=== PATIENT | female | born 1995 | race Caucasian/White ===

== ENCOUNTER 2023-01-03 21:28 | Emergency (ER) | payer BC, SELFPAY ==
[2023-01-03 21:41] VITALS: BP 125/68; PULSE 83; RESP 16; TEMP 37; O2SAT 98; BMI 38.0
--- NOTE | 2023-01-03 21:43 | XR_ITS ---
PROCEDURE INFORMATION: Exam: XR Chest Exam date and time: 01/03/2023 10:11 PM Age: 27 years old Clinical indication: Pain; Chest pressure; Additional info: Chest pain, cough TECHNIQUE: Imaging protocol: Radiologic exam of the chest. Views: 2 views. COMPARISON: No relevant prior studies available. FINDINGS: Lungs: Unremarkable. No consolidation. Pleural spaces: Unremarkable. No pleural effusion. No pneumothorax. Heart/Mediastinum: Unremarkable. No cardiomegaly. Bones/joints: Unremarkable. IMPRESSION: No acute findings.
--- NOTE | 2023-01-03 21:46 | HMH.EDGENADL ---
Discharge Plan Disposition Patient Disposition: Home, Self-Care Condition: Good Prescriptions Prescriptions: New methocarbamol 750 mg tablet 750 mg PO Q8H PRN (Reason: pain) Qty: 20 0RF Referrals Follow up/Referrals: Pat Owens MD [Primary Care Provider] - See instructions Activity Restrictions/Add. Instructions Additional Instructions/Restrictions: You were evaluated in the emergency department today. Please take Tylenol and ibuprofen at home as needed for pain. Follow-up with your primary care provider over the next 3 days. Return to the emergency department for any new or worsening symptoms. Clinical Impressions Clinical Impression: Bronchitis, Costochondritis Chest pain Qualifiers: Chest pain type: unspecified Qualified Code(s): R07.9 - Chest pain, unspecified Instructions Patient Instructions: DI for Acute Bronchitis, DI for Atypical Chest Pain, DI for Costochondritis Discharge ED Provider: Catalina Alas General Adult HPI General Chief complaint: Shortness of Breath/Dyspnea Stated complaint: SOA, painful breathing in chest and back Time Seen by Provider: 01/03/23 21:33 History of Present Illness HPI narrative: This patient is a 27-year-old female who has a history of obesity status post gastric sleeve presenting to the emergency department for evaluation with concern for chest pain. She reports that on 12/18 she was coming back from vacation and developed upper respiratory symptoms, including cough. She is evaluated her PCPs office on 12/24 for symptoms, as they were persistent. They prescribed her a Z-Ruslan, and she completed this. Afterwards, she notes no improvement. She states that she is still feeling unwell and has chest tightness. She describes an intermittent substernal chest pain that radiates to between her shoulder blades. It comes and goes. She denies any recent fevers or increasing cough. She denies any abdominal pain, low back pain, nausea, vomiting, or other concerns. Related Data Previous Rx's Medication Instructions Recorded methocarbamol 750 mg tablet 750 mg PO Q8H PRN pain #20 tabs 01/03/23 Allergies Allergy/AdvReac Type Severity Reaction Status Date / Time No Known Allergies Allergy Verified 01/03/23 21:55 [facility] Disclaimer: The information contained in this section may have been updated after the patient was seen, as this information can be updated by other users. Social History Smoking Status: Current every day smoker alcohol intake: never current occupational status: employed Travel in the last 8 weeks: None ROS Obtained: Yes All systems reviewed & no additional complaints except as documented 14 point review of systems obtained and negative except as mentioned in HPI. Physical Exam General General appearance: alert and in no apparent distress Head Head exam: atraumatic and normocephalic Eye Eye exam: Present normal appearance, PERRL and EOMI ENT ENT exam: Present normal exam, normal oropharynx and mucous membranes moist Neck Neck exam: Present normal inspection, full ROM and trachea midline; Absent tenderness Chest Chest inspection: Present normal inspection and symmetric chest wall rise; Absent tenderness Respiratory Respiratory exam: Present normal lung sounds bilaterally; Absent respiratory distress, wheezes or stridor Cardiovascular Cardiovascular exam: Present regular rate and normal rhythm Abdominal Exam Abdominal exam: Present soft; Absent distention, tenderness or guarding Extremities Exam Extremities exam: Present normal inspection, full ROM and normal capillary refill; Absent tenderness or edema Back Exam Back exam: Present normal inspection and full ROM; Absent tenderness Neurological Exam Neurological exam: Present alert, oriented X3, CN II-XII intact and normal gait; Absent motor sensory deficit Psychiatric Psychiatric exam: Present normal affect and normal mood Sk
--- NOTE | 2023-01-03 21:47 | ECG_ITS ---
APPROVED REPORT Exam: Resting ECG HR:73 bpm ECG Measurements Heart Rate 73 AXES VA 174 P 52 QRSd 130 QRS 81 QT 381 T 9 QTc 406 Conclusion SINUS RHYTHM RIGHT BUNDLE BRANCH BLOCK [120+ ms QRS DURATION, UPRIGHT V1, 40+ ms S IN I/aVL/V4/V5/V6] ABNORMAL ECG UNCONFIRMED REPORT Electronically signed by : Marlo Douglass MD 01/04/2023 20:30:16
[2023-01-03 22:04] LABS: Basophils % 0.4 % (0.1-2.0); Eosinophils # 0.1 K/mm3 (0.0-0.4); Eosinophils % 1.6 % (0.1-12.0); Hematocrit 44.9 % (37.0-47.0); Hemoglobin 14.4 g/dL (12.2-16.2); Lymphocytes % 33.8 % (10-50); Mean Corpuscular HGB Conc 32.1 g/dL (31.8-35.4); Mean Corpuscular Hemoglobin 29.4 pg (27.0-31.2); Mean Corpuscular Volume 91.4 fl (81-99); Mean Platelet Volume 8.3 fl (7.4-10.4); Monocytes # 0.3 K/mm3 (0.1-1.0); Monocytes % 5.7 % (1.7-9.3); Neutrophils # 3.4 K/mm3 (1.8-7.8); Neutrophils % 58.4 % (37.0-80.0); Platelet Count 253 K/mm3 (142-424); Red Blood Count 4.91 M/mm3 (4.20-5.40); Red Cell Distribution Width 12.7 % (11.5-17.5); White Blood Count 5.8 K/mm3 (4.8-10.8)
[2023-01-03 22:12] LABS: Chloride 105 mmol/L (98-107); Potassium 3.9 mmoL/L (3.5-5.1); Sodium 139 mmol/L (136-145)
[2023-01-03 22:14] LABS: HCG Qualitative, Serum Negative (Negative)
[2023-01-03 22:15] LABS: Alanine Aminotransferase 26 U/L (12-78); Albumin Level 3.7 g/dl (3.5-5.0); Albumin/Globulin Ratio 1.1 (1.1-1.8); Alkaline Phosphatase 72 U/L (38-126); Anion Gap 10.9 mEq/L (5-15); Aspartate Amino Transferase 27 U/L (14-36); Bilirubin,Total 0.3 mg/dl (0.2-1.3); Blood Urea Nitrogen 12 mg/dl (7-17); Carbon Dioxide 27 mmol/L (22.0-30.0); Creatinine Clearance Estimated 183 mL/min (50-200); Estimated Glomerular Filt Rate 99 ml/min (>60); GFR (African American) 120 ML/MIN (>60); Globulin 3.3 g/dL (1.3-3.2)
[2023-01-03 22:16] LABS: Calcium 8.5 mg/dl (8.4-10.2); Glucose 83 mg/dl (74-100)
[2023-01-03 22:28] LABS: Troponin I < 0.01 ng/ml (0.00-0.034)
[2023-01-03 23:01] VITALS: BP 119/65; PULSE 76; RESP 18; TEMP 36.6
== END 2023-01-03 23:05 | disposition home or self-care (01) ==
PROVIDERS: Emergency Provider Emergency Medicine; PCP Family Medicine
DX: R07.9 Chest pain, unspecified (principal); J40 Bronchitis, not specified as acute or chronic; M94.0 Chondrocostal junction syndrome [Tietze]; R06.02 Shortness of breath; I45.19 Other right bundle-branch block; F17.200 Nicotine dependence, unspecified, uncomplicated
CPT/HCPCS: 71046; 80053; 84484; 84703; 85025; 93005; 93041; 96361; 96374; 99285

== ENCOUNTER 2023-07-26 02:17 | Emergency (ER) | payer BC, SELFPAY ==
--- NOTE | 2023-07-26 02:26 | HMH.EDGENADL ---
Discharge Plan Disposition Patient Disposition: Home, Self-Care Prescriptions Prescriptions: No Action methocarbamol 750 mg tablet 750 mg PO Q8H PRN (Reason: pain) Qty: 20 0RF Referrals Follow up/Referrals: Provider,Referral, [Primary Care Provider] - See instructions Activity Restrictions/Add. Instructions Additional Instructions/Restrictions: Please follow-up with your primary care provider. Please return to the emergency department if you develop any new or worsening symptoms or become concerned for your health. Clinical Impressions Clinical Impression: Abdominal pain, acute, left lower quadrant Instructions Patient Instructions: DI for Acute Abdominal Pain Discharge ED Provider: Damaso Manzo General Adult HPI General Chief complaint: Abdominal Pain Stated complaint: pain in right side of abdomen Time Seen by Provider: 07/26/23 02:25 History of Present Illness HPI narrative: 28-year-old female presents with severe sudden onset left pelvic pain. She reports that she has history of ovarian cysts and endometriosis, but this feels significantly worse and different from normal. She reports normal bowel movement earlier today, no history of constipation. She reports history of section, cholecystectomy. No recent fever or illness. She reports she is on her third day of her menstrual cycle. Related Data Previous Rx's Medication Instructions Recorded methocarbamol 750 mg tablet 750 mg PO Q8H PRN pain #20 tabs 01/03/23 Allergies Allergy/AdvReac Type Severity Reaction Status Date / Time No Known Allergies Allergy Verified 01/03/23 21:55 [facility] Disclaimer: The information contained in this section may have been updated after the patient was seen, as this information can be updated by other users. Social History (Updated 01/03/23 @ 23:15 by Catalina Alas DO) Smoking Status: Current every day smoker alcohol intake: never current occupational status: employed Travel in the last 8 weeks: None ROS Obtained: Yes All systems reviewed & no additional complaints except as documented Physical Exam General General appearance: alert, in no apparent distress and in distress Head Head exam: atraumatic and normocephalic Eye Eye exam: Present normal appearance, PERRL and EOMI ENT ENT exam: Present normal oropharynx and normal external ear exam Neck Neck exam: Present normal inspection and full ROM Chest Chest inspection: Present normal inspection and symmetric chest wall rise; Absent tenderness Respiratory Respiratory exam: Present normal lung sounds bilaterally; Absent respiratory distress Cardiovascular Cardiovascular exam: Present regular rate and normal rhythm Abdominal Exam Abdominal exam: Present soft and tenderness (Moderate to severe left lower quadrant tenderness noted); Absent distention or guarding Extremities Exam Extremities exam: Present normal inspection; Absent edema or joint swelling Back Exam Back exam: Present normal inspection; Absent tenderness Neurological Exam Neurological exam: Present alert and oriented X3; Absent motor sensory deficit Psychiatric Psychiatric exam: Present normal affect and anxious Skin Skin exam: Present warm, dry and normal color Lymphatic Lymphatic Findings: no adenopathy Medical Decision Making Medical Records Medical records reviewed: Yes I reviewed the patient's medical records. Nic Inquiry Pt receiving controlled substance: No Nic was queried for this patient: No Vital Signs: 07/26/23 02:29 07/26/23 02:30 07/26/23 03:00 Temperature 98.3 F Temperature Source Oral Pulse Rate 73 61 Pulse Rate [Left Radial] 66 Respiratory Rate 20 Blood Pressure 130/81 121/85 Blood Pressure [Right Arm] 130/81 Blood Pressure Mean [Right Arm] 97 Blood Pressure Source [Right Arm] Automatic Cuff Blood Pressure Position [Right Arm] Supine 02 Sat by Pulse Oximetry 100 100 97 Oxygen Delivery Method Room Air Lab Data Lab results reviewed: Yes I reviewed the patient's lab results. Lab Results 07/26/23 02:27: WBC 6.6, RBC 4.67, Hgb 14.4, Hct 43.4, MCV 93.0, MCH 30.9, MCHC 33.2, RDW 12.7, Plt Count 226, MPV 8.0, Neut % (Auto) 52.3, Lymph % (Auto) 38.1, Carbon % (Auto) 5.7, Eos % (Auto) 3.2, Baso % (Auto) 0.6, Neut # (Auto) 3.5, Lymph # (Auto) 2.5, Carbon # (Auto) 0.4, Eos # (Auto) 0.2, Baso # (Auto) 0.0, Sodium 139, Potassium 3.6, Chloride 105, Carbon Dioxide 27, Anion Gap 10.6, BUN 10, Creatinine 0.90, Estimated Creat Clear 137, Estimated GFR 74, Est GFR ( Amer) 89, Glucose 95, Calcium 8.6, Total Bilirubin 0.2, AST 26, ALT 22, Alkaline Phosphatase 64, Total Protein 6.9, Albumin 4.0, Globulin 2.9, Albumin/Globulin Ratio 1.4, Serum HCG, Qual Negative 07/26/23 03:36: Urine Color Yellow, Urine Appearance Clear, Urine pH 7.0, Ur Specific Verner 1.010, Urine Protein Negative, Urine Glucose (UA) Negative, Urine Ketones Negative, Urine Blood Negative, Urine Nitrate Negative, Urine Bilirubin Negative, Urine Urobilinogen 1.0, Ur Leukocyte Esterase Negative, Urine RBC None, Urine WBC None, Ur Squamous Epith Cells 3-5, Urine Bacteria None 07/26/23 02:27 07/26/23 02:27 Orders (Tests/Meds): ED MEDICATIONS Discontinued Medications Generic Name Dose Route Start Last Admin Trade Name Freq PRN Reason Stop Dose Admin Acetaminophen 1,000 mg 07/26/23 02:29 07/26/23 02:32 Acetaminophen 500mg Tab PO 07/26/23 02:30 Not Given ONCE ONE Iopamidol 75 ml 07/26/23 02:52 07/26/23 02:54 Iopamidol-370 (76%);100ml Bottle IV 07/26/23 02:53 75 ml ONCE ONE Administration Ketorolac Tromethamine 30 mg 07/26/23 02:29 07/26/23 02:36 Ketorolac 30mg/Ml Vial IV 07/26/23 02:30 30 mg ONCE ONE Administration Morphine Sulfate 4 mg 07/26/23 02:29 07/26/23 02:36 Morphine 4mg/Ml Syringe IV 07/26/23 02:30 4 mg ONCE ONE Administration Ondansetron HCl 4 mg 07/26/23 02:29 07/26/23 02:36 Ondansetron 4mg/2ml Vial IV 07/26/23 02:30 4 mg ONCE ONE Administration Sodium Chloride 10 ml 07/26/23 02:52 07/26/23 02:53 Sodium Chloride 0.9% 10ml Syr (Rad Only) IV 07/26/23 02:53 10 ml ONCE ONE Administration ORDERS Category Date Time Status CT abdomen pelvis w con Stat Cat Scan 07/26/23 02:29 Completed US transvaginal Stat Exams 07/26/23 02:29 Completed CBC w/Auto Diff [Complete Blood Count Auto Diff] Stat Lab 07/26/23 02:27 Completed CMP [Comprehensive Metabolic Panel] Stat Lab 07/26/23 02:27 Completed HCG Qualitative, Serum Stat Lab 07/26/23 02:27 Completed UA [Urinalysis and Microscopic] Stat Lab 07/26/23 03:36 Completed Medical Decision Narrative: 28-year-old female with history of endometriosis, ovarian cysts presents with severe sudden onset left lower quadrant pain. History was obtained via conversation with patient, family, chart review. On arrival, patient is afebrile, hemodynamically stable, in extremis secondary to pain, moving all extremities spontaneously. Full physical exam performed and significant for focal severe left lower quadrant tenderness to palpation. Differential includes but is not limited to ovarian torsion, ureterolithiasis, UTI, colonic pathology, obstruction, hernia Patient was given IV morphine 4 mg, 30 mg IV Toradol, for symptomatic management and correction of underlying abnormalities. Workup initiated including CBC CMP UA qualitative beta hCG, CT abdomen pelvis with IV contrast, emergent transvaginal ultrasound to assess for torsion. On re-evaluation, patient [remains afebrile, HD stable.] Reports some symptomatic improvement. Laboratory workup independently interpreted by me and significant for completely normal workup, no leukocytosis, negative , clean urine without evidence of infection, normal renal function. Imaging independently interpreted by me and significant for CT scan with prior cholecystectomy, no evidence of colonic pathology, normal-appearing pelvic contents. Transvaginal ultrasound shows normal bilateral arterial and venous flow to the ovaries without evidence of torsion, cyst, pelvic free fluid or other pathology. See radiology read for full review of final results. Given patient history, exam and workup, patient's presentation most likely represents endometriosis related pain. The possibility of intermittent torsion exists. However, patient was actively having the characteristic abdominal pain during the transvaginal ultrasound which is very reassuring given the ultrasound was negative. Interactive discussion had with patient regarding her symptoms. No emergent pathology noted on her workup. Return precautions given. Patient discharged in stable condition. Procedures Risk/Benefits of Procedure(s) Were Explained: Yes Critical Care Critical Care Time Critical Care Time: No
--- NOTE | 2023-07-26 02:28 | PC.NURSE ---
Addendum entered by Eva Goyal RN 07/26/23 02:37: to call in [employer] Original Note: calling XRay at this time.
[2023-07-26 02:29] VITALS: BP 130/81; PULSE 66; RESP 20; TEMP 36.8; O2SAT 100; BMI 37.2
--- NOTE | 2023-07-26 02:29 | CT_ITS ---
PROCEDURE INFORMATION: Exam: CT Abdomen And Pelvis With Contrast Exam date and time: 07/26/2023 2:43 AM Age: 28 years old Clinical indication: Abdominal pain; Other: Llq, ? torsion; Additional info: Severe llq pain TECHNIQUE: Imaging protocol: Computed tomography of the abdomen and pelvis with contrast. Radiation optimization: All CT scans at this facility use at least one of these dose optimization techniques: automated exposure control; mA and/or kV adjustment per patient size (includes targeted exams where dose is matched to clinical indication); or iterative reconstruction. Contrast material: ISOVUE; Contrast volume: 75 ml; Contrast route: IV; COMPARISON: CR XR CHEST 2V 01/03/2023 10:11 PM FINDINGS: Liver: Normal. No mass. Gallbladder and bile ducts: Prior cholecystectomy. Pancreas: Normal. No ductal dilation. Spleen: Normal. No splenomegaly. Adrenal glands: Normal. No mass. 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 No stones or obstruction is present. Stomach and bowel: Prior gastric bypass surgery. Remainder of the bowel is unremarkable.. Appendix: No evidence of appendicitis. Intraperitoneal space: Unremarkable. No free air. No significant fluid collection. Vasculature: Unremarkable. No abdominal aortic aneurysm. Lymph nodes: Unremarkable. No enlarged lymph nodes. Urinary bladder: Unremarkable as visualized. Reproductive: Unremarkable as visualized. Bones/joints: Unremarkable. No acute fracture. Soft tissues: Unremarkable. IMPRESSION: 1. No acute process to explain the patient's pelvic pain. 2. Shoe kidney. 3. Prior cholecystectomy and gastric bypass surgery.
--- NOTE | 2023-07-26 02:29 | US_ITS ---
PROCEDURE INFORMATION: Exam: US Pelvis, Transvaginal Exam date and time: 07/26/2023 3:07 AM Age: 28 years old Clinical indication: Pelvic pain; Additional info: Left pelvic pain, possible torsion LABS AND CLINICAL REPORTS: Last menstrual period start date: 07/24/2023 TECHNIQUE: Imaging protocol: Real-time transvaginal pelvic ultrasound with image documentation. Transvaginal imaging was used for better evaluation of the endometrium, adnexa, and/or cervix. COMPARISON: CT ABDOMEN PELVIS W CON 07/26/2023 2:43 AM FINDINGS: Uterus: Uterus measures 7.61 cm x 4.94 cm x 2.7 cm. Uterus measures 7.6 x 2.7 x 4.9 cm. The endometrium measures 7.5 mm. Right ovary/adnexa: Right ovary measures 3.19 cm x 2.25 cm x 2.16 cm. Right ovarian volume is 8.12 mL. Arterial and venous flow is present. Left ovary/adnexa: Left ovary measures 2.62 cm x 2.4 cm x 1.57 cm. Left ovarian volume is 5.17 mL. Visualization was suboptimal but it does appear that there is arterial and venous flow present. Intraperitoneal space: No free fluid. IMPRESSION: No acute process noted. No evidence of torsion.
--- NOTE | 2023-07-26 02:29 | PC.NURSE ---
in room at this time.
[2023-07-26 02:30] VITALS: BP 130/81; PULSE 73; O2SAT 100
[2023-07-26 02:35] LABS: Basophils % 0.6 % (0.1-2.0); Eosinophils # 0.2 K/mm3 (0.0-0.4); Eosinophils % 3.2 % (0.1-12.0); Hematocrit 43.4 % (37.0-47.0); Hemoglobin 14.4 g/dL (12.2-16.2); Lymphocytes # 2.5 K/mm3 (0.7-4.5); Lymphocytes % 38.1 % (10-50); Mean Corpuscular HGB Conc 33.2 g/dL (31.8-35.4); Mean Corpuscular Hemoglobin 30.9 pg (27.0-31.2); Monocytes # 0.4 K/mm3 (0.1-1.0); Monocytes % 5.7 % (1.7-9.3); Neutrophils # 3.5 K/mm3 (1.8-7.8); Neutrophils % 52.3 % (37.0-80.0); Platelet Count 226 K/mm3 (142-424); Red Blood Count 4.67 M/mm3 (4.20-5.40); Red Cell Distribution Width 12.7 % (11.5-17.5); White Blood Count 6.6 K/mm3 (4.8-10.8)
[2023-07-26] MEDS: MORPHINE 4MG/ML SYRINGE 4 MG IV (02:36)
[2023-07-26] MEDS: KETOROLAC 30MG/ML VIAL 30 MG IV (02:36)
[2023-07-26] MEDS: ONDANSETRON 4MG/2ML VIAL 4 MG IV (02:36)
[2023-07-26 02:43] LABS: Alanine Aminotransferase 22 U/L (12-78); Albumin/Globulin Ratio 1.4 (1.1-1.8); Alkaline Phosphatase 64 U/L (38-126); Anion Gap 10.6 mEq/L (5-15); Aspartate Amino Transferase 26 U/L (14-36); Bilirubin,Total 0.2 mg/dl (0.2-1.3); Blood Urea Nitrogen 10 mg/dl (7-17); Calcium 8.6 mg/dl (8.4-10.2); Carbon Dioxide 27 mmol/L (22.0-30.0); Chloride 105 mmol/L (98-107); Creatinine Clearance Estimated 137 mL/min (50-200); Estimated Glomerular Filt Rate 74 ml/min (>60); GFR (African American) 89 ML/MIN (>60); Globulin 2.9 g/dL (1.3-3.2); Glucose 95 mg/dl (74-100); Potassium 3.6 mmoL/L (3.5-5.1); Sodium 139 mmol/L (136-145); Total Protein,Serum 6.9 g/dl (6.3-8.2)
[2023-07-26 02:49] LABS: HCG Qualitative, Serum Negative (Negative)
[2023-07-26] MEDS: SODIUM CHLORIDE 0.9% 10ML SYR (RAD ONLY) 10 ML IV (02:53)
[2023-07-26] MEDS: IOPAMIDOL-370 (76%);100ML BOTTLE 75 ML IV (02:54)
[2023-07-26 03:00] VITALS: BP 121/85; PULSE 61; O2SAT 97
[2023-07-26 03:41] LABS: Microscopic, Urine URINE MICROSCOPIC (MICROSCOPIC)
[2023-07-26 03:42] LABS: Appearance,Urine CLEAR (Clear); Bilirubin,Urine Negative (Negative); Blood, Urine Negative (Negative); Color,Urine YELLOW (Yellow); Glucose,Urine (UA) Negative (Negative); Ketones,Urine Negative (Negative); Leukocyte Esterase,Urine Negative (Negative); Nitrate,Urine Negative (Negative); Protein,Urine Negative (Negative)
[2023-07-26 04:00] VITALS: BP 112/73; PULSE 55; O2SAT 93
[2023-07-26 04:22] VITALS: BP 112/73; PULSE 52; RESP 18; TEMP 36.8; O2SAT 96
== END 2023-07-26 04:23 | disposition home or self-care (01) ==
PROVIDERS: Emergency Provider Emergency Medicine
DX: R10.32 Left lower quadrant pain (principal); F17.210 Nicotine dependence, cigarettes, uncomplicated
CPT/HCPCS: 74177; 76830; 80053; 81001; 84703; 85025; 96374; 96375; 99285; J2405; Q9967

== ENCOUNTER 2023-09-10 15:56 | Emergency (ER) | payer BC, SELFPAY ==
[2023-09-10] VITALS (10 sets, daily range): BP systolic 96–116; BP diastolic 49–80; PULSE 50–72; RESP 16–18; TEMP 36.5; O2SAT 95–99; BMI 27.1
[2023-09-10 16:11] LABS: Microscopic, Urine URINE MICROSCOPIC (MICROSCOPIC)
[2023-09-10 16:12] LABS: Appearance,Urine CLEAR (Clear); Bilirubin,Urine Negative (Negative); Blood, Urine Negative (Negative); Color,Urine YELLOW (Yellow); Glucose,Urine (UA) Negative (Negative); Ketones,Urine Negative (Negative); Leukocyte Esterase,Urine Negative (Negative); Nitrate,Urine Negative (Negative); PH,Urine 6.5 (5.0-8.5); Protein,Urine Negative (Negative); Specific Gravity, Urine 1.025 (1.005-1.030); Urobilinogen,Urine 0.2 EU/dl (0.2)
--- NOTE | 2023-09-10 16:14 | PC.NURSE ---
Dr Alas is in room now speaking with pt
--- NOTE | 2023-09-10 16:16 | US_ITS ---
PROCEDURE INFORMATION: Exam: US Pelvis, Transvaginal Exam date and time: 09/10/2023 5:03 PM Age: 28 years old Clinical indication: Pelvic pain; Prior surgery; Surgery date: 6+ months; Surgery type: -- dx lap; Patient HX: HX of endo; Additional info: Severe llq pain, h/o ovarian cyst LABS AND CLINICAL REPORTS: Last menstrual period start date: 08/14/2023 TECHNIQUE: Imaging protocol: Real-time transvaginal pelvic ultrasound with image documentation. Transvaginal imaging was used for better evaluation of the endometrium, adnexa, and/or cervix. COMPARISON: US TRANSVAGINAL 07/26/2023 3:07 AM FINDINGS: Uterus: Uterus measures 8.42 cm x 4.05 cm x 3.23 cm. Endometrium homogeneous in echotexture, measuring 11 mm in thickness at the uterine fundus. Uterus is retroverted. Cervix: 5 mm cervical nabothian cyst. Right ovary/adnexa: Right ovary measures 3.73 cm x 2.22 cm x 1.87 cm. Right ovarian volume is 8.11 mL. Normal right ovarian vascularity. Left ovary/adnexa: Left ovary measures 3.02 cm x 1.78 cm x 1.32 cm. Left ovarian volume is 3.72 mL. Normal left ovarian vascularity. Intraperitoneal space: No free fluid. IMPRESSION: No acute abnormality.
--- NOTE | 2023-09-10 16:17 | PC.NURSE ---
radiology called for u/s.
[2023-09-10 16:19] LABS: Basophils # 0.1 K/mm3 (0-0.2); Basophils % 0.9 % (0.1-2.0); Eosinophils # 0.4 K/mm3 (0.0-0.4); Eosinophils % 4.1 % (0.1-12.0); Hematocrit 48.4 % (37.0-47.0); Hemoglobin 15.3 g/dL (12.2-16.2); Lymphocytes # 2.4 K/mm3 (0.7-4.5); Lymphocytes % 27.7 % (10-50); Mean Corpuscular HGB Conc 31.7 g/dL (31.8-35.4); Mean Corpuscular Hemoglobin 30.1 pg (27.0-31.2); Mean Platelet Volume 7.7 fl (7.4-10.4); Monocytes # 0.5 K/mm3 (0.1-1.0); Monocytes % 5.8 % (1.7-9.3); Neutrophils # 5.4 K/mm3 (1.8-7.8); Neutrophils % 61.4 % (37.0-80.0); Platelet Count 303 K/mm3 (142-424); Red Blood Count 5.09 M/mm3 (4.20-5.40); Red Cell Distribution Width 12.8 % (11.5-17.5); White Blood Count 8.7 K/mm3 (4.8-10.8)
[2023-09-10 16:21] LABS: Urine Pregnancy, HCG Qual. Negative (Negative)
--- NOTE | 2023-09-10 16:21 | HMH.EDGENADL ---
Discharge Plan Disposition Patient Disposition: Home, Self-Care Condition: Good Prescriptions Prescriptions: New ketorolac 10 mg tablet 10 mg PO Q8H PRN (Reason: pain) 1 Days Qty: 12 0RF No Action methocarbamol 750 mg tablet 750 mg PO Q8H PRN (Reason: pain) Qty: 20 0RF Referrals Follow up/Referrals: Pat Owens MD [Primary Care Provider] - See instructions Activity Restrictions/Add. Instructions Additional Instructions/Restrictions: You were evaluated in the emergency department today. Please keep close follow-up with LEGAL ADMINISTRATOR. powersaw supervisor your prescription and take as needed for pain. You may also take Tylenol in addition to this. Return to the emergency department for new or worsening symptoms. Clinical Impressions Clinical Impression: Pelvic pain Stand Alone Forms Stand Alone Forms: Work/School Release Instructions Patient Instructions: DI for Pelvic Pain Discharge ED Provider: Catalina Alas General Adult HPI General Chief complaint: PAIN Stated complaint: abdominal pain Time Seen by Provider: 09/10/23 16:04 Mode of Arrival: Ambulatory Source of Information: Patient Limitations: No Limitations Description of Symptoms (Recalled from ER Triage Doc. by RN): pt presents to ED c/o lower pelvic pain. pt states she is scheduled to have a hysterectomy in October d/t endometriosis. pt states she is due to start her menstrual cycle and prior to starting she has severe pain and nausea. History of Present Illness HPI narrative: This patient is a 28-year-old female with history of endometriosis and ovarian cyst presenting with concern for left lower quadrant abdominal pain. She states that she monthly gets pain around her menstrual cycles, and she is awaiting a hysterectomy for chronic pelvic pain. Pain started today in the left lower quadrant as she was driving just prior to arrival. Pain was severe and constant nothing made it better or worse. She notes associated nausea. She was evaluated here in July for similar concern and had negative workup at that time and was told to follow-up closely with LEGAL ADMINISTRATOR. She notes that she has been following them and is awaiting his hysterectomy, but she could not tolerate the pain today. No other concerns noted, such as fevers, chills, changes in bowel movements, urinary symptoms, or other issues. Related Data Previous Rx's Medication Instructions Recorded methocarbamol 750 mg tablet 750 mg PO Q8H PRN pain #20 tabs 07/28/23 ketorolac 10 mg tablet 10 mg PO Q8H PRN pain 1 day #12 09/10/23 tabs Allergies Allergy/AdvReac Type Severity Reaction Status Date / Time No Known Allergies Allergy Verified 01/03/23 21:55 [facility] Disclaimer: The information contained in this section may have been updated after the patient was seen, as this information can be updated by other users. Social History Smoking Status: Never smoker alcohol intake: never current occupational status: employed Travel in the last 8 weeks: None ROS Obtained: Yes All systems reviewed & no additional complaints except as documented Physical Exam General General appearance: alert and in no apparent distress Head Head exam: atraumatic and normocephalic Eye Eye exam: Present normal appearance, PERRL and EOMI ENT ENT exam: Present normal exam, normal oropharynx, mucous membranes moist and normal external ear exam Neck Neck exam: Present normal inspection, full ROM and trachea midline; Absent tenderness Chest Chest inspection: Present normal inspection and symmetric chest wall rise; Absent tenderness Respiratory Respiratory exam: Present normal lung sounds bilaterally; Absent respiratory distress, wheezes, stridor or accessory muscle use Cardiovascular Cardiovascular exam: Present regular rate and normal rhythm Abdominal Exam Abdominal exam: Present soft and tenderness (LLQ); Absent distention, guarding, rebound or rigidity Extremities Exam Extremities exam: Present normal inspection, full ROM and normal capillary refill; Absent tenderness or edema Back Exam Back exam: Present normal inspection and full ROM; Absent tenderness Neurological Exam Neurological exam: Present alert, oriented X3, CN II-XII intact and normal gait; Absent motor sensory deficit Psychiatric Psychiatric exam: Present normal affect and normal mood Skin Skin exam: Present warm and dry Medical Decision Making Medical Records Medical records reviewed: Yes I reviewed the patient's medical records. Nic Inquiry Pt receiving controlled substance: No Vital Signs: 09/10/23 15:58 09/10/23 16:31 09/10/23 16:40 Temperature 97.7 F Temperature Source Oral Pulse Rate 66 55 L Pulse Rate [Right Radial] 72 Respiratory Rate 16 16 Blood Pressure 106/60 L 106/60 L Blood Pressure [Right Arm] 116/80 Blood Pressure Mean 75 Blood Pressure Mean [Right Arm] 92 Blood Pressure Source Automatic Cuff Blood Pressure Source [Right Arm] Automatic Cuff Blood Pressure Position Sitting Blood Pressure Position [Right Arm] Sitting 02 Sat by Pulse Oximetry 98 98 96 Oxygen Delivery Method Room Air Room Air 09/10/23 17:01 09/10/23 17:36 09/10/23 18:00 Temperature Temperature Source Pulse Rate 59 L 70 50 L Pulse Rate [Right Radial] Respiratory Rate Blood Pressure 103/61 L 103/61 L 96/49 L Blood Pressure [Right Arm] Blood Pressure Mean 70 62 Blood Pressure Mean [Right Arm] Blood Pressure Source Blood Pressure Source [Right Arm] Blood Pressure Position Blood Pressure Position [Right Arm] 02 Sat by Pulse Oximetry 97 95 97 Oxygen Delivery Method 09/10/23 18:30 09/10/23 18:32 09/10/23 19:00 Temperature Temperature Source Pulse Rate 51 L 54 L 61 Pulse Rate [Right Radial] Respiratory Rate 18 Blood Pressure 103/58 L 103/58 L 114/77 Blood Pressure [Right Arm] Blood Pressure Mean 61 89 Blood Pressure Mean [Right Arm] Blood Pressure Source Automatic Cuff Blood Pressure Source [Right Arm] Blood Pressure Position Sitting Blood Pressure Position [Right Arm] 02 Sat by Pulse Oximetry 97 98 99 Oxygen Delivery Method Room Air 09/10/23 19:29 Temperature 97.7 F Temperature Source Oral Pulse Rate 51 L Pulse Rate [Right Radial] Respiratory Rate 18 Blood Pressure 114/77 Blood Pressure [Right Arm] Blood Pressure Mean Blood Pressure Mean [Right Arm] Blood Pressure Source Automatic Cuff Blood Pressure Source [Right Arm] Blood Pressure Position Sitting Blood Pressure Position [Right Arm] 02 Sat by Pulse Oximetry Oxygen Delivery Method Room Air Lab Data Lab results reviewed: Yes I reviewed the patient's lab results. Lab Results 09/10/23 16:07: Urine Color Yellow, Urine Appearance Clear, Urine pH 6.5, Ur Specific [place] 1.025, Urine Protein Negative, Urine Glucose (UA) Negative, Urine Ketones Negative, Urine Blood Negative, Urine Nitrate Negative, Urine Bilirubin Negative, Urine Urobilinogen 0.2, Ur Leukocyte Esterase Negative, Urine RBC None, Urine WBC None, Ur Squamous Epith Cells 5-10, Urine Bacteria Trace, Urine HCG, Qual Negative 09/10/23 16:08: WBC 8.7, RBC 5.09, Hgb 15.3, Hct 48.4 H, MCV 95.0, MCH 30.1, MCHC 31.7 L, RDW 12.8, Plt Count 303, MPV 7.7, Neut % (Auto) 61.4, Lymph % (Auto) 27.7, [place] % (Auto) 5.8, Eos % (Auto) 4.1, Baso % (Auto) 0.9, Neut # (Auto) 5.4, Lymph # (Auto) 2.4, [place] # (Auto) 0.5, Eos # (Auto) 0.4, Baso # (Auto) 0.1, Sodium 137, Potassium 4.0, Chloride 107, Carbon Dioxide 28, Anion Gap 6.0, BUN 9, Creatinine 0.80, Estimated Creat Clear 113, Estimated GFR 84, Est GFR ( Amer) 102, Glucose 79, Calcium 8.9, Total Bilirubin 0.4, AST 30, ALT 23, Alkaline Phosphatase 63, Total Protein 6.9, Albumin 3.9, Globulin 3.0, Albumin/Globulin Ratio 1.3 09/10/23 16:08 09/10/23 16:08 Orders (Tests/Meds): ED MEDICATIONS Discontinued Medications Generic Name Dose Route Start Last Admin Trade Name Freq PRN Reason Stop Dose Admin Acetaminophen 1,000 mg 09/10/23 16:19 09/10/23 16:26 Acetaminophen 1,000mg/100ml Vial IV 09/10/23 16:20 1,000 mg ONCE ONE Administration Lactated Ringer's 1,000 mls @ 999 mls/hr 09/10/23 16:19 09/10/23 16:26 Lactated Ringer's 1000 Ml Bag IV 09/10/23 17:19 999 mls/hr .Q1H1M ONE Administration Ketorolac Tromethamine 15 mg 09/10/23 16:19 09/10/23 16:26 Ketorolac 30mg/Ml Vial IV 09/10/23 16:20 15 mg ONCE ONE Administration Ketorolac Tromethamine 15 mg 09/10/23 19:14 09/10/23 19:23 Ketorolac 30mg/Ml Vial IV 09/10/23 19:15 15 mg ONCE ONE Administration Sodium Chloride 10 ml 09/10/23 16:07 Sodium Chloride 0.9% 10ml Flush Syringe IV 10/10/23 16:06 NEEDED PRN Maintain IV Site ORDERS Category Date Time Status US transvaginal Stat Exams 09/10/23 16:16 Completed Complete Blood Count Auto Diff Stat Lab 09/10/23 16:08 Completed Comprehensive Metabolic Panel Stat Lab 09/10/23 16:08 Completed UA [Urinalysis and Microscopic] Stat Lab 09/10/23 16:07 Completed Urine , HCG Qual. Stat Lab 09/10/23 16:07 Completed Medical Decision Narrative: In summary, this patient is a 28-year-old female presenting to the Emergency Department for evaluation of lower quadrant abdominal pain. Differential diagnoses considered include but are not limited to ovarian cyst, ovarian torsion, endometriosis pain, mittelschmerz, cystitis, ureterolithiasis, colitis. Ruling out the most morbid conditions drove assessment. Overall, patient feels this is similar to her cyclic pain, and she notes she is due for her period. She denies any changes in bowel movements or other concerns that would suggest colitis or diverticulitis. Pain is in the left lower quadrant, making appendicitis or other pathology such as that unlikely. Possible she could have ovarian cyst versus ovarian torsion versus pain from endometriosis. Workup included CBC, CMP, urinalysis, transvaginal ultrasound. She was given a bolus of IV fluids as well as IV Zofran, acetaminophen, and Toradol for symptomatic improvement. I independently interpreted ultrasound prior to the radiologist read and noted no concerns for torsion. Please see their read for final interpretation. Labs were obtained that demonstrated no acutely concerning abnormalities. On reassessment, patient had good improvement after administration of event as above. She is resting comfortably. At this time, patient was deemed to be appropriate for discharge home with close LEGAL ADMINISTRATOR follow-up. Given exclusion of emergent pathology based on workup and exam, I feel that her symptoms are likely related to her endometriosis and chronic pain. She was given strict return precautions, prescription for Toradol, and instructions for close follow-up. She was discharged after all questions were answered. Critical Care Critical Care Time Critical Care Time: No
[2023-09-10] MEDS: ACETAMINOPHEN 1,000MG/100ML VIAL 1000 MG IV (16:26)
[2023-09-10] MEDS: LACTATED RINGERS 1000ML 1,000 ML 999 ML IV (16:26)
[2023-09-10] MEDS: KETOROLAC 30MG/ML VIAL 15 MG IV ×2 (16:26→19:23)
[2023-09-10 16:28] LABS: Chloride 107 mmol/L (98-107)
[2023-09-10 16:29] LABS: Sodium 137 mmol/L (136-145)
[2023-09-10 16:31] LABS: Alanine Aminotransferase 23 U/L (12-78); Alkaline Phosphatase 63 U/L (38-126); Aspartate Amino Transferase 30 U/L (14-36); Bilirubin,Total 0.4 mg/dl (0.2-1.3); Blood Urea Nitrogen 9 mg/dl (7-17); Calcium 8.9 mg/dl (8.4-10.2); Carbon Dioxide 28 mmol/L (22.0-30.0); Creatinine Clearance Estimated 113 mL/min (50-200); Estimated Glomerular Filt Rate 84 ml/min (>60); GFR (African American) 102 ML/MIN (>60); Glucose 79 mg/dl (74-100)
[2023-09-10 16:32] LABS: Albumin Level 3.9 g/dl (3.5-5.0); Albumin/Globulin Ratio 1.3 (1.1-1.8); Total Protein,Serum 6.9 g/dl (6.3-8.2)
[2023-09-10 16:44] LABS: Bacteria,Urine Trace /lpf
--- NOTE | 2023-09-10 17:14 | PC.NURSE ---
pt going to U/S
--- NOTE | 2023-09-10 17:37 | PC.NURSE ---
pt returned from ultrasound.
--- NOTE | 2023-09-10 17:56 | PC.NURSE ---
rounded on pt, family at bedside and does not need anything at this time
--- NOTE | 2023-09-10 19:09 | PC.NURSE ---
report given to oncoming shift.
== END 2023-09-10 19:30 | disposition home or self-care (01) ==
PROVIDERS: Emergency Provider Emergency Medicine; PCP Family Medicine
DX: R10.32 Left lower quadrant pain (principal); R11.0 Nausea; R10.2 Pelvic and perineal pain
CPT/HCPCS: 76830; 80053; 81001; 81025; 85025; 96361; 96374; 96375; 96376; 99284; J0131

== ENCOUNTER 2023-11-03 22:41 | Emergency (ER) | payer BC, SELFPAY ==
[2023-11-03 22:50] VITALS: BP 114/76; PULSE 72; RESP 18; TEMP 36.5; O2SAT 98; BMI 38.9
--- NOTE | 2023-11-03 23:10 | CT_ITS ---
PROCEDURE INFORMATION: Exam: CT Abdomen And Pelvis With Contrast Exam date and time: 11/03/2023 11:53 PM Age: 28 years old Clinical indication: Other: Vag bleeding; Prior surgery; Surgery date: <1 month; Surgery type: Total hysterectomy 2 weeks ago; Additional info: Recent bso/billy, felt pop, pain, now vag bleeding TECHNIQUE: Imaging protocol: Computed tomography of the abdomen and pelvis with contrast. Total images: 344 Radiation optimization: All CT scans at this facility use at least one of these dose optimization techniques: automated exposure control; mA and/or kV adjustment per patient size (includes targeted exams where dose is matched to clinical indication); or iterative reconstruction. Contrast material: ISOVUE 370; Contrast volume: 75 ml; Contrast route: IV; COMPARISON: CT ABDOMEN PELVIS W CON 07/26/2023 2:43 AM FINDINGS: Lungs: Calcified right middle lobe granuloma. Lung bases are otherwise clear. Heart: Normal heart size. Liver: Focal fatty infiltration near the falciform ligament. Otherwise, unremarkable liver. Gallbladder and bile ducts: Status post cholecystectomy. No bile duct dilatation. Pancreas: Normal. No ductal dilation. Spleen: No splenomegaly. Stable subcentimeter splenic hypodensity, statistically a cyst or hemangioma. Adrenal glands: Normal. No mass. Kidneys and ureters: Horseshoe kidney malformation. No hydronephrosis, nephrolithiasis, or renal mass. Stomach and bowel: Status post gastric sleeve. Unremarkable duodenum. Question mild proximal small bowel wall thickening. No ileus or bowel obstruction. Mild colonic stool burden. Unremarkable rectum. Appendix: Normal appendix. Intraperitoneal space: No ascites. No free air. Vasculature: Abdominal aorta is normal in caliber. Major abdominal vessels enhance appropriately. Lymph nodes: Calcified right hilar lymph nodes. Small benign-appearing bilateral pelvic and inguinal lymph nodes. Urinary bladder: Unremarkable as visualized. Reproductive: Status post hysterectomy. No pelvic mass or hematoma. Trace free pelvic fluid. No pelvic abscess. Bones/joints: Chronic bilateral L5 spondylolysis without spondylolisthesis. No acute osseous abnormality. Soft tissues: Tiny fat containing umbilical hernia. Linear sites of abdominal wall subcutaneous fat stranding, potentially trocar sites from prior laparoscopic surgery. Other findings: Residual thymus versus thymic rebound. IMPRESSION: 1. No acute intra-abdominal or pelvic process. 2. Status post hysterectomy. No pelvic mass, abscess, or hematoma. 3. Trace free pelvic fluid is likely physiologic or postsurgical. 4. Normal appendix. 5. Horseshoe kidney malformation. 6. Status post cholecystectomy and gastric sleeve. 7. Question mild proximal jejunal wall thickening/enteritis.
--- NOTE | 2023-11-03 23:22 | ED_ITS ---
Discharge Plan Disposition Patient Disposition: Home, Self-Care Prescriptions Prescriptions: No Action methocarbamol 750 mg tablet 750 mg PO Q8H PRN (Reason: pain) Qty: 20 0RF ketorolac 10 mg tablet 10 mg PO Q8H PRN (Reason: pain) 1 Days Qty: 12 0RF Referrals Follow up/Referrals: Pat Owens MD [Primary Care Provider] - See instructions Activity Restrictions/Add. Instructions Additional Instructions/Restrictions: Your CT scan shows no evidence of vaginal cuff dehiscence, intra-abdominal bleeding, intra-abdominal air, abscess or other acute pathology. Please call in the morning to follow-up with your HANDCREW FOREMAN. Please return to the emergency department if you develop any new or worsening symptoms or become concerned for your health. Clinical Impressions Clinical Impression: Vaginal bleeding, Post-operative pain Discharge ED Provider: Damaso Manzo Adult HPI General Chief complaint: Vaginal Bleeding Stated complaint: post op 10/16, bleeding/cramping, left side pain Time Seen by Provider: 11/03/23 23:05 Mode of Arrival: Family Vehicle Source of Information: Patient Limitations: No Limitations Description of Symptoms (Recalled from ER Triage Doc. by RN): 28 yo female presents 17 days post-op hysterectomy/bilateral tubes removed. States she received her novelties sales representative care at [facility] and just followed up with her novelties sales representative md at the end of the week last week w/good report. She reports lifting something and feeling left side abd pain. States she wasn't told she couldn't lift things. Noticed bright red vaginal bleeding when she voids, and has had to wear one pad (but not had to change it) to protect clothes. Contacted novelties sales representative oncroyce and was told to come in for an exam. Concerned she ripped something open. History of Present Illness HPI narrative: 28-year-old female with history of endometriosis presents with abdominal pain and vaginal bleeding. She had a total abdominal hysterectomy and bilateral salpingo-oophorectomy over 2 weeks ago at [facility]. She reports that she was never told that she was not supposed to lift heavy objects and she was moving some items at home and felt a pop and pain. Sometime thereafter she noted that she had some vaginal bleeding. Dark in color, small volume but somewhat more than spotting. She has only used 1 pad. Reports pain is generalized but worse in the lower abdomen. She called her HANDCREW FOREMAN orchestra conductor and was told to be seen. Related Data Previous Rx's Medication Instructions Recorded methocarbamol 750 mg tablet 750 mg PO Q8H PRN pain #20 tabs 01/03/23 ketorolac 10 mg tablet 10 mg PO Q8H PRN pain 1 day #12 09/10/23 tabs Allergies Allergy/AdvReac Type Severity Reaction Status Date / Time No Known Allergies Allergy Verified 01/03/23 21:55 [facility] Disclaimer: The information contained in this section may have been updated after the patient was seen, as this information can be updated by other users. Social History Smoking Status: Unknown if ever smoked alcohol intake: never current occupational status: employed Travel in the last 8 weeks: None ROS Obtained: Yes All systems reviewed & no additional complaints except as documented Physical Exam General General appearance: alert and in no apparent distress Head Head exam: atraumatic and normocephalic Eye Eye exam: Present normal appearance, PERRL and EOMI ENT ENT exam: Present normal oropharynx and normal external ear exam Neck Neck exam: Present normal inspection and full ROM Chest Chest inspection: Present normal inspection and symmetric chest wall rise; Absent tenderness Respiratory Respiratory exam: Present normal lung sounds bilaterally; Absent respiratory distress Cardiovascular Cardiovascular exam: Present regular rate and normal rhythm Abdominal Exam Abdominal exam: Present soft and tenderness (Mild, generalized); Absent distention or guarding External exam: Present normal external exam Speculum exam: Present vaginal bleeding (Scant dried blood); Absent erythema, vaginal discharge, foreign body or laceration Extremities Exam Extremities exam: Present normal inspection; Absent edema or joint swelling Back Exam Back exam: Present normal inspection; Absent tenderness Neurological Exam Neurological exam: Present alert and oriented X3; Absent motor sensory deficit Psychiatric Psychiatric exam: Present normal affect and normal mood Skin Skin exam: Present warm, dry and normal color Lymphatic Lymphatic Findings: no adenopathy Medical Decision Making Medical Records Medical records reviewed: Yes I reviewed the patient's medical records. Nic Inquiry Pt receiving controlled substance: No Nic was queried for this patient: No Vital Signs: 11/03/23 22:50 Temperature 97.7 F Temperature Source Oral Pulse Rate [Right Brachial] 72 Respiratory Rate 18 Blood Pressure [Right Arm] 114/76 Blood Pressure Mean [Right Arm] 88 Blood Pressure Source [Right Arm] Automatic Cuff Blood Pressure Position [Right Arm] Sitting 02 Sat by Pulse Oximetry 98 Oxygen Delivery Method Room Air Lab Data Lab results reviewed: Yes I reviewed the patient's lab results. Lab Results 11/03/23 23:30: WBC 6.9, RBC 4.38, Hgb 13.3, Hct 40.5, MCV 92.4, MCH 30.4, MCHC 32.9, RDW 13.4, Plt Count 308, MPV 7.7, Neut % (Auto) 61.0, Lymph % (Auto) 29.5, [place] % (Auto) 6.3, Eos % (Auto) 2.2, Baso % (Auto) 0.9, Neut # (Auto) 4.2, Lymph # (Auto) 2.0, [place] # (Auto) 0.4, Eos # (Auto) 0.2, Baso # (Auto) 0.1, Sodium 135 L, Potassium 4.5, Chloride 104, Carbon Dioxide 28, Anion Gap 7.5, BUN 13, Creatinine 0.80, Estimated Creat Clear 162, Estimated GFR 84, Est GFR ( Amer) 102, Glucose 91, Calcium 8.5, Total Bilirubin 0.2, AST 22, ALT 17, Alkaline Phosphatase 66, Total Protein 6.5, Albumin 3.6, Globulin 2.9, Albumin/Globulin Ratio 1.2 11/04/23 00:35: Urine Color Yellow, Urine Appearance Clear, Urine pH 7.0, Ur Specific [place] 1.010, Urine Protein Negative, Urine Glucose (UA) Negative, Urine Ketones Negative, Urine Blood 3+, Urine Nitrate Negative, Urine Bilirubin Negative, Urine Urobilinogen 1.0, Ur Leukocyte Esterase 1+ A, Urine RBC 10-20, Urine WBC 5-10, Ur Squamous Epith Cells 3-5, Urine Bacteria 1+ 11/03/23 23:30 11/03/23 23:30 Orders (Tests/Meds): ED MEDICATIONS Discontinued Medications Generic Name Dose Route Start Last Admin Trade Name Freq PRN Reason Stop Dose Admin Acetaminophen 1,000 mg 11/03/23 23:16 11/03/23 23:41 Acetaminophen 500mg Tab PO 11/03/23 23:17 1,000 mg ONCE ONE Administration Iopamidol 75 ml 11/04/23 00:02 11/04/23 00:03 Iopamidol-370 (76%);100ml Bottle IV 11/04/23 00:03 75 ml ONCE ONE Administration Morphine Sulfate 4 mg 11/03/23 23:16 11/03/23 23:40 Morphine 4mg/Ml Syringe IV 11/03/23 23:17 4 mg ONCE ONE Administration Ondansetron HCl 4 mg 11/03/23 23:16 11/03/23 23:41 Ondansetron 4mg/2ml Vial IV 11/03/23 23:17 4 mg ONCE ONE Administration Sodium Chloride 10 ml 11/04/23 00:02 11/04/23 00:03 Sodium Chloride 0.9% 10ml Syr (Rad Only) IV 11/04/23 00:03 10 ml ONCE ONE Administration ORDERS Category Date Time Status CT abdomen pelvis w con Stat Cat Scan 11/03/23 23:10 Completed Complete Blood Count Auto Diff Stat Lab 11/03/23 23:30 Completed Comprehensive Metabolic Panel Stat Lab 11/03/23 23:30 Completed Urinalysis and Microscopic Stat Lab 11/04/23 00:35 Completed Urine Culture Stat Micro 11/04/23 00:35 Received Medical Decision Narrative: 28-year-old female little over 2 weeks postop from total abdominal hysterectomy and bilateral salpingo-oophorectomy presents with abdominal pain and vaginal bleeding after feeling a pop while lifting something at home. History was obtained interactive discussion with patient. On arrival, patient is [afebrile, hemodynamically stable, satting appropriately, alert, oriented x4, GCS 15], moving all extremities spontaneously. Full physical exam performed and significant for mild to moderate generalized abdominal pain without peritonitis. Differential includes but is not limited to vaginal cuff dehiscence, intra- abdominal abscess, abdominal hernia, appendicitis, cholecystitis, hemorrhage. Patient was given Tylenol, Zofran, morphine for symptomatic management and correction of underlying abnormalities. Workup initiated including CBC CMP UA CT abdomen pelvis with IV contrast. On re-evaluation, patient [remains afebrile, HD stable.] Reports improved abdominal pain. Continues to have mild tenderness without peritonitis Laboratory workup independently interpreted by me and significant for no significant leukocytosis, no electrolyte derangement.. Imaging independently interpreted by me and significant for CT scan shows no evidence of vaginal cuff dehiscence, active bleeding, abscess formation, pelvic/intra-abdominal free air. See radiology read for full review of final results. Given the recency of patient's surgery, a speculum exam was performed with caution for further assessment. It showed some scant dried blood, otherwise was unremarkable. An interactive discussion was had with patient regarding her presentation. There is no evidence of vaginal cuff dehiscence, or other acute intra-abdominal or postoperative pathology at this time. Given her negative workup and benign abdominal exam, I feel that she is stable for discharge at this time. She reports that she will call her HANDCREW FOREMAN team in the morning and follow-up with soon as possible. Return precautions given. Procedures Risk/Benefits of Procedure(s) Were Explained: Yes Critical Care Critical Care Time Critical Care Time: No
[2023-11-03] MEDS: MORPHINE 4MG/ML SYRINGE 4 MG IV (23:40)
[2023-11-03] MEDS: ONDANSETRON 4MG/2ML VIAL 4 MG IV (23:41)
[2023-11-03] MEDS: ACETAMINOPHEN 500MG TAB 1000 MG PO (23:41)
[2023-11-03 23:53] LABS: Basophils # 0.1 K/mm3 (0-0.2); Basophils % 0.9 % (0.1-2.0); Eosinophils # 0.2 K/mm3 (0.0-0.4); Eosinophils % 2.2 % (0.1-12.0); Hematocrit 40.5 % (37.0-47.0); Hemoglobin 13.3 g/dL (12.2-16.2); Lymphocytes % 29.5 % (10-50); Mean Corpuscular HGB Conc 32.9 g/dL (31.8-35.4); Mean Corpuscular Hemoglobin 30.4 pg (27.0-31.2); Mean Corpuscular Volume 92.4 fl (81-99); Mean Platelet Volume 7.7 fl (7.4-10.4); Monocytes # 0.4 K/mm3 (0.1-1.0); Monocytes % 6.3 % (1.7-9.3); Neutrophils # 4.2 K/mm3 (1.8-7.8); Platelet Count 308 K/mm3 (142-424); Red Blood Count 4.38 M/mm3 (4.20-5.40); Red Cell Distribution Width 13.4 % (11.5-17.5); White Blood Count 6.9 K/mm3 (4.8-10.8)
[2023-11-03 23:54] LABS: Chloride 104 mmol/L (98-107)
[2023-11-03 23:55] LABS: Potassium 4.5 mmoL/L (3.5-5.1); Sodium 135 mmol/L (136-145)
[2023-11-03 23:57] LABS: Alanine Aminotransferase 17 U/L (12-78); Albumin Level 3.6 g/dl (3.5-5.0); Albumin/Globulin Ratio 1.2 (1.1-1.8); Alkaline Phosphatase 66 U/L (38-126); Anion Gap 7.5 mEq/L (5-15); Aspartate Amino Transferase 22 U/L (14-36); Bilirubin,Total 0.2 mg/dl (0.2-1.3); Blood Urea Nitrogen 13 mg/dl (7-17); Carbon Dioxide 28 mmol/L (22.0-30.0); Creatinine Clearance Estimated 162 mL/min (50-200); Estimated Glomerular Filt Rate 84 ml/min (>60); GFR (African American) 102 ML/MIN (>60); Globulin 2.9 g/dL (1.3-3.2); Total Protein,Serum 6.5 g/dl (6.3-8.2)
[2023-11-03 23:58] LABS: Calcium 8.5 mg/dl (8.4-10.2); Glucose 91 mg/dl (74-100)
[2023-11-04] MEDS: IOPAMIDOL-370 (76%);100ML BOTTLE 75 ML IV (00:03)
[2023-11-04] MEDS: SODIUM CHLORIDE 0.9% 10ML SYR (RAD ONLY) 10 ML IV (00:03)
[2023-11-04 00:47] LABS: Microscopic, Urine URINE MICROSCOPIC (MICROSCOPIC)
[2023-11-04 00:53] LABS: Appearance,Urine CLEAR (Clear); Bilirubin,Urine Negative (Negative); Blood, Urine 3+ (Negative); Color,Urine YELLOW (Yellow); Glucose,Urine (UA) Negative (Negative); Ketones,Urine Negative (Negative); Leukocyte Esterase,Urine 1+ (Negative); Nitrate,Urine Negative (Negative); Protein,Urine Negative (Negative)
[2023-11-04 01:10] LABS: Bacteria,Urine 1+ /lpf
[2023-11-04 01:35] VITALS: BP 110/63; PULSE 61; RESP 15; TEMP 36.6; O2SAT 98
== END 2023-11-04 01:35 | disposition home or self-care (01) ==
PROVIDERS: Emergency Provider Emergency Medicine; PCP Family Medicine
DX: R10.84 Generalized abdominal pain (principal); N93.9 Abnormal uterine and vaginal bleeding, unspecified; G89.18 Other acute postprocedural pain; Z90.710 Acquired absence of both cervix and uterus; Z90.722 Acquired absence of ovaries, bilateral
CPT/HCPCS: 74177; 80053; 81001; 85025; 87086; 96374; 96375; 99285; J2405; Q9967

== ENCOUNTER 2024-04-04 11:56 | Emergency (ER) | payer BC, SELFPAY ==
[2024-04-04 12:15] VITALS: BP 110/68; PULSE 67; RESP 20; TEMP 36.7; O2SAT 98; BMI 41.8
--- NOTE | 2024-04-04 12:27 | EXP.UTC ---
Discharge Plan Disposition Patient Disposition: Home, Self-Care Condition: Good Prescriptions Prescriptions: New cefdinir 300 mg capsule 300 mg PO BID Qty: 20 0RF phenazopyridine [Pyridium] 200 mg tablet 200 mg PO Q8H 2 Days Qty: 6 0RF Referrals Follow up/Referrals: Pat Owens MD [Primary Care Provider] - See instructions Activity Restrictions/Add. Instructions Additional Instructions/Restrictions: *Increase fluids. Water not Soda or Tea *Start antibiotic immediately and be sure to take as ordered for the FULL length of time although you should start to see improvement over the next 48 hours *Pyridium as needed Remember this medication will turn your urine . This is normal but it will stain what ever it gets on *You should not use Pyridium for more than 48 hours. If so , follow up with your primary physician to review urine culture and ensure that antibiotic is adequate for infection *Be SURE to follow up anytime for new or worsening symptoms with your family doctor. AND in 48 hours for urine culture results with your family doctor, if you do not have a doctor then you may call back to the [facility] for urine culture results and further treatment. We do recommend that you choose and establish care with a Primary Care Physician. ?AND follow up with them ?in 10-14 days to repeat UA to ensure infection is resolved and blood no longer present *Be sure to let your PCP know that we sent urine cultures from the [facility] so they can follow up to ensure that you area the on the correct antibiotic Call your doctor office and make appointment for 48 hours (2 days from today) ?to follow up and get the results of your urine culture and further treatment Clinical Impressions Clinical Impression: UTI (urinary tract infection) Instructions Patient Instructions: DI for Urinary Tract Infection (UTI), Urinary Tract Infection, Phenazopyridine, Cefdinir Print Language Print Language: Uzbek Discharge ED Provider: Kandi Jim [facility] HPI General Stated complaint: frequent urination back pain fever Mode of Arrival: Ambulatory Source of Information: Patient Limitations: No Limitations Time Seen by Provider: 04/04/24 12:20 Description of Symptoms (Recalled from Triage Doc. by RN): PATIENT C/O LOWER BACK PAIN, PAIN AND FREQUENCY WITH URINATION X 3 DAYS AND VOMITING/FEVER YESTERDAY HEENT Symptoms (Recalled from RN notes): No Resp Symptoms (Recalled from RN notes): No Skin Symptoms (Recalled from RN notes): No MS Symptoms (Recalled from RN notes): No Functional Status (Recalled from RN notes): WNL History of Present Illness Provider Complaint: Patient states that she started on Friday with achy like feeling in her lower back and yesterday with burning with urination and feeling of urgency and frequency states felt like she had a low grade fever so she started taking AZO States today she is still having the urgency and frequency with achy like feeling in her back so she came in Denies hx of kidney stones Related Data Previous Rx's ?Medication ?Instructions ?Recorded cefdinir 300 mg capsule 300 mg PO BID #20 caps 04/04/24 phenazopyridine 200 mg tablet 200 mg PO Q8H pain 2 days #6 tabs 04/04/24 (Pyridium) Allergies Allergy/AdvReac Type Severity Reaction Status Date / Time No Known Allergies Allergy Verified 01/03/23 21:55 Worker's Comp Is this a Worker's Comp case?: No PFSH PFS Disclaimer: The information contained in this section may have been updated after the patient was seen, as this information can be updated by other users. Social History Smoking Status: Unknown if ever smoked alcohol intake: never current occupational status: employed Travel in the last 8 weeks: None ROS Obtained: Yes All systems reviewed & no additional complaints except as documented and Yes Systems reviewed as appropriate & no additional complaints except as documented Constitutional Constitutional: Reports system reviewed and no additional complaints, except as documented, Reports as per HPI and Reports fever(s) ENT Ears, Nose, Mouth, and Throat: Reports system reviewed and no additional complaints, except as documented and Reports as per HPI Cardiovascular Cardiovascular: Reports system reviewed and no additional complaints, except as documented and Reports as per HPI Respiratory Respiratory: Reports system reviewed and no additional complaints, except as documented and Reports as per HPI Gastrointestinal Gastrointestingal: Reports system reviewed and no additional complaints, except as documented, as per HPI and nausea; Denies abdominal pain Genitourinary Female Genitourinary: Reports system reviewed and no additional complaints, except as documented, Reports as per HPI, Reports dysuria, Reports flank pain, Reports urinary frequency and Reports urinary urgency Musculoskeletal Musculoskeletal: Reports system reviewed and no additional complaints, except as documented, Reports as per HPI and Reports back pain Physical Exam General General appearance: alert and in no apparent distress ENT ENT exam: Present mucous membranes moist Respiratory Respiratory exam: Present normal lung sounds bilaterally; Absent respiratory distress or wheezes Cardiovascular Cardiovascular exam: Present regular rate, normal rhythm and normal heart sounds Abdominal Exam Abdominal exam: Present soft and normal bowel sounds; Absent distention or tenderness Back Exam Back 1 view image: 1. reports achy like feeling in her lower back Neurological Exam Neurological exam: Present alert, oriented X3 and normal gait Medical Decision Making Medical Records Screening: Per USPSTF and CDC recommendations, given the prevalence of disease in our region, it is our hospital?s policy to screen for HIV and viral Hepatitis for all patients aged 18 and over and those with ongoing risk factors. Nic Inquiry Pt receiving controlled substance: No Nic was queried for this patient: No Vital Signs: 04/04/24 12:15 Temperature 98.0 F Temperature Source Oral Pulse Rate [Left Brachial] 67 Respiratory Rate 20 Blood Pressure [Left Arm] 110/68 Blood Pressure Mean [Left Arm] 82 Blood Pressure Source [Left Arm] Automatic Cuff Blood Pressure Position [Left Arm] Sitting 02 Sat by Pulse Oximetry 98 Oxygen Delivery Method Room Air Lab Data Lab results reviewed: Yes I reviewed the patient's lab results. Orders (Tests/Meds): ORDERS Category Date Time Status Urinalysis and Microscopic Stat Lab 04/04/24 12:16 Ordered
[2024-04-04 12:31] LABS: Microscopic, Urine URINE MICROSCOPIC (MICROSCOPIC)
[2024-04-04 12:43] LABS: Appearance,Urine CLEAR (Clear); Bilirubin,Urine Negative (Negative); Blood, Urine TRACE-I (Negative); Color,Urine YELLOW (Yellow); Glucose,Urine (UA) Negative (Negative); Ketones,Urine Negative (Negative); Leukocyte Esterase,Urine 2+ (Negative); Nitrate,Urine Negative (Negative); Protein,Urine Negative (Negative); Specific Gravity, Urine <= 1.005 (1.005-1.030); Urobilinogen,Urine 0.2 EU/dl (0.2)
[2024-04-04 13:13] VITALS: BP 110/68; PULSE 67; RESP 20; TEMP 36.7; O2SAT 98
== END 2024-04-04 13:15 | disposition home or self-care (01) ==
PROVIDERS: Emergency Provider Nurse Practitioner; PCP Family Medicine
DX: N39.0 Urinary tract infection, site not specified (principal)
CPT/HCPCS: 81001; 87086; 87088; 87186; 99213; G0381

== ENCOUNTER 2024-10-28 11:50 | Emergency (ER) | payer BC, SELFPAY ==
--- NOTE | 2024-10-28 11:56 | HMH.EDGENADL ---
Discharge Plan Disposition Patient Disposition: Home, Self-Care Condition: Good Prescriptions Prescriptions: New famotidine [Pepcid] 20 mg tablet 20 mg PO DAILY Qty: 30 0RF ondansetron 4 mg tablet,disintegrating 4 mg PO Q6H PRN (Reason: nausea and vomiting) Qty: 12 0RF No Action cefdinir 300 mg capsule 300 mg PO BID Qty: 20 0RF phenazopyridine [Pyridium] 200 mg tablet 200 mg PO Q8H 2 Days Qty: 6 0RF Referrals Follow up/Referrals: Pat Ownes MD [Primary Care Provider] - See instructions Activity Restrictions/Add. Instructions Additional Instructions/Restrictions: Stay well-hydrated. Please follow up with your primary care provider in 2-3 days. Please return to ED if your symptoms worsen, change in location, change in severity, new symptoms develop or if you become concerned for your health. Clinical Impressions Clinical Impression: Nausea & vomiting, Abdominal pain Instructions Patient Instructions: DI for Diarrhea and Traveler's Diarrhea -- Adult, DI for Diarrhea and Traveler's Diarrhea -- Child, DI for Nausea -- Adult, DI for Nausea -- Child Print Language Print Language: Pakistani Discharge ED Provider: Dimas Garcia General Adult HPI General Chief complaint: Nausea/Vomiting/Diarrhea Stated complaint: Vomiting Time Seen by Provider: 10/28/24 11:56 History of Present Illness HPI narrative: Patient is a 29-year-old female with history of endometriosis, cholecystectomy, total hysterectomy, anxiety, depression. She presents today for concern for vomiting and abdominal cramping. She reports that on Friday she began to experience nausea and several episodes of nonbloody vomiting. It has persisted until today. She reports cramping abdominal pain periumbilically. She denies any dysuria or hematuria. She has had abdominal surgeries as listed above. She reports she still passing gas but has not had a bowel movement in 4 days. Has not been able to keep much down secondary to the vomiting. Now just dry heaving. No blood in the vomit or blood in the stool. Related Data Previous Rx's ?Medication ?Instructions ?Recorded cefdinir 300 mg capsule 300 mg PO BID #20 caps 04/04/24 phenazopyridine 200 mg tablet 200 mg PO Q8H pain 2 days #6 tabs 04/04/24 (Pyridium) famotidine 20 mg tablet (Pepcid) 20 mg PO DAILY #30 tabs 10/28/24 ondansetron 4 mg disintegrating 4 mg PO Q6H PRN nausea and 10/28/24 tablet vomiting #12 tabs Allergies Allergy/AdvReac Type Severity Reaction Status Date / Time No Known Allergies Allergy Verified 01/03/23 21:55 [facility] Disclaimer: The information contained in this section may have been updated after the patient was seen, as this information can be updated by other users. Social History Smoking Status: Current every day smoker alcohol intake: never current occupational status: employed Travel in the last 8 weeks?: None Have you lived/traveled outside US in past 30 days?: No Contact w/someone who lives/traveled outside US past 30 days?: No Exposure to someone with infectious disease in past 14 days?: No Do you have a fever (greater than 100.4 F or 38 C)?: No Have you tested positive for COVID-19?: No Exposed to someone with COVID-19 in past 14 days?: No Do you have a sore throat?: No Do you have a cough?: No Do you have any weakness?: No Do you have any diarrhea?: No Are you experiencing any unusual bleeding?: No Do you have any muscle aches/pain?: No Do you have any abdominal pain?: No Are you experiencing loss of taste or smell?: No ROS Obtained: Yes All systems reviewed & no additional complaints except as documented Physical Exam General General appearance: alert and in no apparent distress Head Head exam: atraumatic and normocephalic Eye Eye exam: Present PERRL and EOMI ENT ENT exam: Present normal oropharynx Neck Neck exam: Present full ROM and trachea midline Chest Chest inspection: Present symmetric chest wall rise Respiratory Respiratory exam: Present normal lung sounds bilaterally; Absent stridor Cardiovascular Cardiovascular exam: Present regular rate and normal rhythm Abdominal Exam Abdominal exam: Present soft and tenderness; Absent distention Extremities Exam Extremities exam: Present full ROM Neurological Exam Neurological exam: Present alert and oriented X3 Psychiatric Psychiatric exam: Present normal mood Skin Skin exam: Present warm and dry Medical Decision Making Medical Records Screening: Per USPSTF and CDC recommendations, given the prevalence of disease in our region, it is our hospital?s policy to screen for HIV and viral Hepatitis for all patients aged 18 and over and those with ongoing risk factors. Nic Inquiry Pt receiving controlled substance: No Vital Signs: 10/28/24 11:59 10/28/24 12:42 10/28/24 13:01 Temperature 97.8 F Temperature Source Oral Pulse Rate 77 55 L Pulse Rate [Right Radial] 85 Respiratory Rate 15 Blood Pressure 122/85 107/65 L Blood Pressure [Right Arm] 122/85 Blood Pressure Mean [Right Arm] 97 Blood Pressure Source [Right Arm] Automatic Cuff Blood Pressure Position [Right Arm] Supine 02 Sat by Pulse Oximetry 98 93 L 94 L Oxygen Delivery Method Room Air Room Air Room Air 10/28/24 14:00 10/28/24 14:23 Temperature Temperature Source Pulse Rate 54 L 64 Pulse Rate [Right Radial] Respiratory Rate Blood Pressure 122/76 111/64 Blood Pressure [Right Arm] Blood Pressure Mean [Right Arm] Blood Pressure Source [Right Arm] Blood Pressure Position [Right Arm] 02 Sat by Pulse Oximetry 98 96 Oxygen Delivery Method Room Air Room Air Lab Data Lab Results 10/28/24 11:55: Urine Color Yellow, Urine Appearance Clear, Urine pH 6.0, Ur Specific [place] >= 1.030, Urine Protein Negative, Urine Glucose (UA) Negative, Urine Ketones 2+, Urine Blood Negative, Urine Nitrate Negative, Urine Bilirubin 1+ A, Urine Urobilinogen 1.0, Ur Leukocyte Esterase Negative, Urine RBC None, Urine WBC 3-5, Ur Squamous Epith Cells Occasional, Urine Bacteria 1+, Urine Mucus Trace 10/28/24 12:35: WBC 5.0, RBC 4.84, Hgb 14.6, Hct 42.6, MCV 88.0, MCH 30.2, MCHC 34.3, RDW 11.5, Plt Count 211, MPV 9.7, Neut % (Auto) 72.2, Lymph % (Auto) 20.4, Sandoval % (Auto) 6.8, Eos % (Auto) 0.4, Baso % (Auto) 0.2, Neut # (Auto) 3.6, Lymph # (Auto) 1.0, [place] # (Auto) 0.3, Eos # (Auto) 0.0, Baso # (Auto) 0.0, Sodium 135 L, Potassium 4.2, Chloride 105, Carbon Dioxide 23, Anion Gap 11.2, BUN 15, Creatinine 0.90, Estimated Creat Clear 146, Estimated GFR 73, Est GFR ( Amer) 88, Glucose 73 L, Lactate 1.0, Calcium 9.1, Phosphorus 3.3, Magnesium 1.9, Total Bilirubin 1.1, AST 41 H, ALT 25, Alkaline Phosphatase 71, Total Protein 7.1, Albumin 4.2, Globulin 2.9, Albumin/Globulin Ratio 1.4, Lipase 64, Serum HCG, Qual Negative, HCV Ab STEPHANY w/Rflx PCR Qn Negative, HIV Ag/Ab Combo Qual Negative 10/28/24 12:35 10/28/24 12:35 Orders (Tests/Meds): ED MEDICATIONS Generic Name Dose Route Start Last Admin Trade Name Freq PRN Reason Stop Dose Admin Sodium Chloride 8 ml 10/28/24 12:11 Sodium Chloride 0.9% 10ml Vial IV 11/27/24 12:10 NEEDED PRN dilute pepcid Discontinued Medications Generic Name Dose Route Start Last Admin Trade Name Freq PRN Reason Stop Dose Admin Famotidine 20 mg 10/28/24 12:11 10/28/24 12:22 Famotidine 20mg/2ml Vial IV 10/28/24 12:12 20 mg ONCE ONE Administration Lactated Ringer's 1,000 mls @ 999 mls/hr 10/28/24 12:11 10/28/24 12:22 Lactated Ringer's 1000 Ml Bag IV 10/28/24 13:11 999 mls/hr .Q1H1M ONE Administration Iopamidol 75 ml 10/28/24 13:32 10/28/24 13:32 Iopamidol-370 (76%);100ml Bottle IV 10/28/24 13:33 75 ml ONCE ONE Administration Ketorolac Tromethamine 15 mg 10/28/24 12:11 10/28/24 12:22 Ketorolac 30mg/Ml Vial IV 10/28/24 12:12 15 mg ONCE ONE Administration Ondansetron HCl 4 mg 10/28/24 12:11 10/28/24 12:22 Ondansetron 4mg/2ml Vial IV 10/28/24 12:12 4 mg ONCE ONE Administration Sodium Chloride 10 ml 10/28/24 13:32 10/28/24 13:32 Sodium Chloride 0.9% 10ml Syr (Rad Only) IV 10/28/24 13:33 10 ml ONCE ONE Administration ORDERS Category Date Time Status CT abdomen pelvis w con Stat Cat Scan 10/28/24 12:11 Completed CBC w/Auto Diff [Complete Blood Count Auto Diff] Stat Lab 10/28/24 12:35 Completed CMP [Comprehensive Metabolic Panel] Stat Lab 10/28/24 12:35 Completed HCG Qualitative, Serum Stat Lab 10/28/24 12:35 Completed HIV Combo Stat Lab 10/28/24 12:35 Completed Hepatitis C Ab Qual. W/ RFX Stat Lab 10/28/24 12:35 Completed Lactic Acid Stat Lab 10/28/24 12:35 Completed Lipase Stat Lab 10/28/24 12:35 Completed MAG [Magnesium] Stat Lab 10/28/24 12:35 Completed PHOS [Phosphorous] Stat Lab 10/28/24 12:35 Completed UA [Urinalysis and Microscopic] Stat Lab 10/28/24 11:55 Completed UA [Urinalysis and Microscopic] Stat Lab 10/28/24 12:47 Ordered Medical Decision Narrative: In summary, this 29-year-old female presents to the emergency department today with vomiting abdominal pain. On initial evaluation patient is afebrile, hemodynamically stable and in no acute distress but on exam is warm well-perfused with her abdomen is soft, nondistended. She has tenderness in the right upper quadrant epigastrium and in the right lower quadrant. No peritoneal signs. Full pulses in all extremities. She does have a delayed capillary refill and dry mucous membranes, will fluid resuscitate.. Differential diagnosis includes but is not limited to gastritis, gastroenteritis, bowel obstruction, pancreatitis, intra-abdominal abscess, appendicitis. Based on these concerns, I ordered CBC CMP lipase lactic, CT abdomen urinalysis. Patient received LR, Pepcid, Toradol, Zofran for treatment. Labs personally reviewed demonstrate no leukocytosis no evidence of anemia. No significant electrolyte derangements. Urinalysis unremarkable with no evidence of infection. X CT imaging personally interpreted no acute intra-abdominal pathology. Confirm our radiologist final read On reassessment patient's pain improved and tolerating good oral intake here and ambulatory about the emergency department. I suspect gastritis versus gastroenteritis. Will send her home with Zofran and Pepcid and strict precautions. All questions answered patient and plan and discharge. Of note, social determinants of health include poor health literacy. At this time it was felt that the patient was safe to be discharged home. The patient was in agreement with this plan. The patient was given strict return precautions prior to being discharged from the emergency department. Critical Care Critical Care Time Critical Care Time: No
[2024-10-28 11:58] VITALS: BMI 39.8
[2024-10-28 11:59] VITALS: BP 122/85; PULSE 85; RESP 15; TEMP 36.6; O2SAT 98; BMI 39.8
[2024-10-28 12:01] LABS: Microscopic, Urine URINE MICROSCOPIC (MICROSCOPIC)
[2024-10-28 12:03] LABS: Appearance,Urine CLEAR (Clear); Blood, Urine Negative (Negative); Color,Urine YELLOW (Yellow); Glucose,Urine (UA) Negative (Negative); Ketones,Urine 2+ (Negative); Leukocyte Esterase,Urine Negative (Negative); Nitrate,Urine Negative (Negative); Protein,Urine Negative (Negative); Specific Gravity, Urine >= 1.030 (1.005-1.030)
[2024-10-28 12:05] LABS: Bilirubin,Urine 1+ (Negative)
--- NOTE | 2024-10-28 12:11 | CT_ITS ---
FINAL REPORT TECHNIQUE: Axial CT images through the abdomen and pelvis were performed following IV contrast administration. Coronal and sagittal reformatted images were obtained and reviewed. This study was performed with techniques to keep radiation doses as low as reasonably achievable, (ALARA). Individualized dose reduction techniques using automated exposure control or adjustment of mA and/or kV according to the patient's size were employed. CLINICAL HISTORY: Vomiting, RLQ and RUQ TTP, subj fevers COMPARISON: 11/03/2023 FINDINGS: Abdomen: Lung bases are clear. The patient is status post cholecystectomy. Liver has an unremarkable CT appearance. The spleen, pancreas and adrenal glands are unremarkable. A horseshoe kidney is again noted. The solid organs are unremarkable. There are surgical changes from a gastric sleeve. No bowel obstruction or fluid collection is seen. Pelvis: The appendix is unremarkable. The patient is status post hysterectomy. No fluid collection or adenopathy is seen. IMPRESSION: No acute findings. Reviewed, Interpreted and Dictated by Jorge Benton MD Transcribed by Freda Coley Authenticated and . [facility]
[2024-10-28 12:12] LABS: Bacteria,Urine 1+ /lpf; Mucus,Urine Trace /lpf; Squamous Epithelial Cell,Urine Occasional #/hpf (0-5)
--- NOTE | 2024-10-28 12:20 | PC.NURSE ---
called lab to come draw blood
[2024-10-28] MEDS: ONDANSETRON 4MG/2ML VIAL 4 MG IV (12:22)
[2024-10-28] MEDS: FAMOTIDINE 20MG/2ML VIAL 20 MG IV (12:22)
[2024-10-28] MEDS: KETOROLAC 30MG/ML VIAL 15 MG IV (12:22)
[2024-10-28] MEDS: LACTATED RINGERS 1000ML 1,000 ML 999 ML IV (12:22)
[2024-10-28 12:42] VITALS: BP 122/85; PULSE 77; O2SAT 93
[2024-10-28 12:44] LABS: Basophils % 0.2 % (0.1-2.0); Eosinophils % 0.4 % (0.1-12.0); Hematocrit 42.6 % (37.0-47.0); Hemoglobin 14.6 g/dL (12.2-16.2); Immature Granulocytes # 0 10^3uL; Immature Granulocytes % 0 %; Lymphocytes % 20.4 % (10-50); Mean Corpuscular HGB Conc 34.3 g/dL (31.8-35.4); Mean Corpuscular Hemoglobin 30.2 pg (27.0-31.2); Mean Platelet Volume 9.7 fl (7.4-10.4); Monocytes # 0.3 K/mm3 (0.1-1.0); Monocytes % 6.8 % (1.7-9.3); Neutrophils # 3.6 K/mm3 (1.8-7.8); Neutrophils % 72.2 % (37.0-80.0); Nucleated Red Blood Cells # 0 10^3/uL; Nucleated Red Blood Cells % 0 %; Platelet Count 211 K/mm3 (142-424); Red Blood Count 4.84 M/mm3 (4.20-5.40); Red Cell Distribution Width 11.5 % (11.5-17.5)
[2024-10-28 12:57] LABS: Albumin Level 4.2 g/dl (3.5-5.0); Chloride 105 mmol/L (98-107); Potassium 4.2 mmoL/L (3.5-5.1); Sodium 135 mmol/L (136-145)
[2024-10-28 13:00] LABS: Alanine Aminotransferase 25 U/L (12-78); Albumin/Globulin Ratio 1.4 (1.1-1.8); Alkaline Phosphatase 71 U/L (38-126); Anion Gap 11.2 mEq/L (5-15); Aspartate Amino Transferase 41 U/L (14-36); Bilirubin,Total 1.1 mg/dl (0.2-1.3); Blood Urea Nitrogen 15 mg/dl (7-17); Calcium 9.1 mg/dl (8.4-10.2); Carbon Dioxide 23 mmol/L (22.0-30.0); Creatinine Clearance Estimated 146 mL/min (50-200); Estimated Glomerular Filt Rate 73 ml/min (>60); GFR (African American) 88 ML/MIN (>60); Globulin 2.9 g/dL (1.3-3.2); Glucose 73 mg/dl (74-100); HCG Qualitative, Serum Negative (Negative); Lipase 64 U/L (23-300); Phosphorous 3.3 mg/dl (2.5-4.5); Total Protein,Serum 7.1 g/dl (6.3-8.2)
[2024-10-28 13:01] VITALS: BP 107/65; PULSE 55; O2SAT 94
[2024-10-28 13:01] LABS: Magnesium 1.9 mg/dl (1.6-2.3)
[2024-10-28] MEDS: IOPAMIDOL-370 (76%);100ML BOTTLE 75 ML IV (13:32)
[2024-10-28] MEDS: SODIUM CHLORIDE 0.9% 10ML SYR (RAD ONLY) 10 ML IV (13:32)
[2024-10-28 13:53] LABS: HIV Combo NEGATIVE (Negative)
[2024-10-28 14:00] VITALS: BP 122/76; PULSE 54; O2SAT 98
[2024-10-28 14:00] LABS: Hepatitis C Ab Qual. W/ RFX NEGATIVE (Negative)
[2024-10-28 14:23] VITALS: BP 111/64; PULSE 64; O2SAT 96
--- NOTE | 2024-10-28 14:28 | PC.NURSE ---
Gave a bottle of water for a PO challange.
[2024-10-28 15:21] VITALS: BP 145/67; PULSE 66; RESP 17; TEMP 36.7; O2SAT 99
== END 2024-10-28 15:24 | disposition home or self-care (01) ==
PROVIDERS: Emergency Provider Emergency Medicine; PCP Family Medicine
DX: R10.33 Periumbilical pain (principal); R11.2 Nausea with vomiting, unspecified; F17.210 Nicotine dependence, cigarettes, uncomplicated; Z11.59 Encounter for screening for other viral diseases; Z11.4 Encounter for screening for human immunodeficiency virus [HIV]
CPT/HCPCS: 36415; 74177; 80053; 81001; 83605; 83690; 83735; 84100; 84703; 85025; 86803; 87389; 96361; 96374; 96375; 99285; J1885; J2405; J7120; Q9967

== ENCOUNTER 2024-12-19 21:39 | Emergency (ER) | payer BC, SELFPAY ==
--- NOTE | 2024-12-19 21:28 | ECG_ITS ---
APPROVED REPORT Exam: Resting ECG HR:60 bpm ECG Measurements Heart Rate 60 AXES LA 183 P 46 QRSd 116 QRS 36 QT 394 T 17 QTc 394 Conclusion SINUS RHYTHM WITH SINUS ARRHYTHMIA POSSIBLE RIGHT VENTRICULAR CONDUCTION DELAY [RSR (QR) IN V1/V2] NONSPECIFIC T-WAVE ABNORMALITY BORDERLINE ECG UNCONFIRMED REPORT Normal sinus rhythm. Right bundle branch block. T wave inversions in V2 and V3. No ST elevations or depressions Electronically signed by : RODRIGO HUTTON, 12/20/2024 11:13:08
--- OUTSIDE RECORDS SUMMARY | 2024-12-19 21:53 | XMS_ITS | Continuity of Care Document ---
Author Organization [facility] [employer] Address [address] [place] [address] Problems Unknown Problems Results No Results Allergies, adverse reactions, alerts No known allergies and adverse reactions Medications No administered medications reported Vital Signs Date Vital Result Comment 05/27/2024 Body Height (8302-2) 2.678162111968 m Body Weight (27465-1) 104.35470788628 kg Body Mass Index (96203-7) 21.36 kg/m2 Social History No smoking Hx information available
[2024-12-19 22:03] VITALS: BP 117/64; PULSE 74; RESP 18; TEMP 37.2; O2SAT 98; BMI 34.5
--- NOTE | 2024-12-19 22:12 | CT_ITS ---
PROCEDURE INFORMATION: Exam: CTA Head With Contrast, Arteriography Exam date and time: 12/19/2024 11:45 PM Age: 29 years old Clinical indication: Other: Numb/tingling rue and rle TECHNIQUE: Imaging protocol: Computed tomographic angiography of the head with contrast. Exam focused on the arteries. 3D rendering (Not supervised by radiologist): MIP and/or 3D reconstructed images were created by the technologist. Radiation optimization: All CT scans at this facility use at least one of these dose optimization techniques: automated exposure control; mA and/or kV adjustment per patient size (includes targeted exams where dose is matched to clinical indication); or iterative reconstruction. Contrast material: ISOVUE; Contrast volume: 80 ml; Contrast route: INTRAVENOUS (IV); COMPARISON: CT HEAD/BRAIN WO CON 12/19/2024 11:41 PM FINDINGS: ANTERIOR CIRCULATION: Right internal carotid artery: Intracranial segment is patent with no significant stenosis. No aneurysm. Right middle cerebral artery: No occlusion or significant stenosis. No aneurysm. Right anterior cerebral artery: No occlusion or significant stenosis. No aneurysm. Left internal carotid artery: Intracranial segment is patent with no significant stenosis. No aneurysm. Left middle cerebral artery: No occlusion or significant stenosis. No aneurysm. Left anterior cerebral artery: No occlusion or significant stenosis. No aneurysm. POSTERIOR CIRCULATION: Right vertebral artery: No occlusion or significant stenosis. No aneurysm. Left vertebral artery: The left vertebral artery terminates as the origin of the PICA. Basilar artery: The basilar artery is small in size, likely a developmental variant. Right posterior cerebral artery: Codominant right HOGSHEAD STRIPPER. Left posterior cerebral artery: configuration of the left HOGSHEAD STRIPPER. Brain: No definite mass, mass effect, or midline shift. Cerebral ventricles: No ventriculomegaly. Bones/joints: Unremarkable. No acute fracture. Soft tissues: Unremarkable. Other findings: . IMPRESSION: No significant intracranial arterial abnormality.
--- NOTE | 2024-12-19 22:12 | CT_ITS ---
PROCEDURE INFORMATION: Exam: CT Head Without Contrast Exam date and time: 12/19/2024 11:41 PM Age: 29 years old Clinical indication: Hemiplegia and hemiparesis; Dominant right side; Additional info: Numb/tingling rue and rle TECHNIQUE: Imaging protocol: Computed tomography of the head without contrast. Radiation optimization: All CT scans at this facility use at least one of these dose optimization techniques: automated exposure control; mA and/or kV adjustment per patient size (includes targeted exams where dose is matched to clinical indication); or iterative reconstruction. COMPARISON: No relevant prior studies available. FINDINGS: Brain: No intracranial hemorrhage. No mass. No definite edema. Cerebral ventricles: No hydrocephalus. Paranasal sinuses: No acute sinusitis. Mastoid air cells: No significant effusion. Orbital cavities: Unremarkable as visualized. Bones: No acute fracture. Soft tissues: Unremarkable. IMPRESSION: No definite acute intracranial abnormality. If symptoms persist, suggest MRI.
--- NOTE | 2024-12-19 22:12 | CT_ITS ---
PROCEDURE INFORMATION: Exam: CTA Neck With Contrast Exam date and time: 12/19/2024 11:45 PM Age: 29 years old Clinical indication: Other: Numb/tingling rue and rle TECHNIQUE: Imaging protocol: Computed tomographic angiography of the neck with contrast. Exam focused on the cervical segments of the vasculature. 3D rendering (Not supervised by radiologist): MIP and/or 3D reconstructed images were created by the technologist. Radiation optimization: All CT scans at this facility use at least one of these dose optimization techniques: automated exposure control; mA and/or kV adjustment per patient size (includes targeted exams where dose is matched to clinical indication); or iterative reconstruction. Contrast material: ISOVUE; Contrast volume: 80 ml; Contrast route: INTRAVENOUS (IV); COMPARISON: CT ANGIO NECK 12/19/2024 11:45 PM FINDINGS: Right common carotid artery: No stenosis. No dissection or occlusion. Right internal carotid artery: 0% stenosis of the right internal carotid artery per NASCET criteria. Right external carotid artery: No occlusion or stenosis of the origin. Left common carotid artery: No stenosis. No dissection or occlusion. Left internal carotid artery: 0% stenosis of the left internal carotid artery per NASCET criteria. Left external carotid artery: No occlusion or stenosis of the origin. Right vertebral artery: No stenosis. No dissection or occlusion. Left vertebral artery: No stenosis. No dissection or occlusion. Soft tissues: Normal. No significant soft tissue swelling. Bones/joints: No acute fracture. IMPRESSION: No significant abnormality of the carotid and vertebral arteries. REFERENCES: NASCET CRITERIA. The degree of stenosis in the cervical segment of the internal carotid artery is based on NASCET criteria. Normal is no stenosis. Mild is less than 50% stenosis. Moderate is 50-69% stenosis. Severe is 70% to 99% stenosis. Total occlusion is no detectable patent lumen.
--- NOTE | 2024-12-19 22:41 | [facility].EDGENADL ---
Discharge Plan Disposition Patient Disposition: Home, Self-Care Condition: Good Prescriptions Prescriptions: No Action cefdinir 300 mg capsule 300 mg PO BID Qty: 20 0RF phenazopyridine [Pyridium] 200 mg tablet 200 mg PO Q8H 2 Days Qty: 6 0RF famotidine [Pepcid] 20 mg tablet 20 mg PO DAILY Qty: 30 0RF ondansetron 4 mg tablet,disintegrating 4 mg PO Q6H PRN (Reason: nausea and vomiting) Qty: 12 0RF dicyclomine 10 mg capsule 10 mg PO Q8H PRN (Reason: abdominal pain) Qty: 30 0RF Referrals Follow up/Referrals: Dinesh Lees DO [Staff Physician, Family Practice] - See instructions Referral Note: Needs follow-up for what is believed to be atypical migraine, likely needs neurology referral Provider,Referral, [Primary Care Provider, Medical] - See instructions Activity Restrictions/Add. Instructions Additional Instructions/Restrictions: You were evaluated in the ER and are believed to be appropriate for discharge at this time. Continue monitoring your symptoms very closely. Take Tylenol or ibuprofen if needed for headache. Do not exceed the recommended dose on the bottle, drink water and eat a small snack each time you take these medications to avoid side effects. Drink plenty of water to stay well-hydrated. Please call your primary care doctor first thing in the morning and make an appointment for reevaluation, they should see you and consider neurology referral. I referred you to Dr. Lees for a PCP since you do not have one listed in the system. Return to the ER with any new, worsening, or otherwise concerning symptoms. Clinical Impressions Clinical Impression: Atypical migraine Instructions Patient Instructions: DI for Syncope in Adults (Fainting), Migraine -- Adult, DI for Migraine, DI for Syncope in Children (Fainting) Print Language Print Language: Luxembourgish Discharge ED Provider: Sandro Sheikh General Adult HPI <Sandro Sheikh MD - Last Filed: 12/20/24 00:55> General Chief complaint: Syncope Stated complaint: dizzy,numbness on left side Time Seen by Provider: 12/19/24 22:05 Mode of Arrival: Ambulatory Source of Information: Patient Description of Symptoms (Recalled from ER Triage Doc. by RN): pt to ED with c/o right leg, right arm, and right facial numbness/tingling intermittently x 1 month, recurring tonight. Pt also reports over the past month she has passed out and felt like she was going to pass out multiple times. pt reports she saw her PCP on friday, had blood work done and was placed on a holter monitor. Pt was told by PCP if sx return, come to ED. History of Present Illness HPI narrative: Princess Reyes is a 29-year-old female with no significant past medical history who presents to the emergency department for complaints of intermittent dizziness and right upper and right lower extremity numbness and tingling and heaviness. Patient states that over last month, she has had episodes where her right arm and right leg will become heavy and have subjective numbness and tingling. She also reports brain fog during these times. She states that she has been put on a Holter monitor since Friday that was placed by her primary care physician but denies any chest pain or heart palpitations. She denies any shortness of breath. She denies any abdominal pain or recent illnesses. She denies any fever. Related Data Previous Rx's ?Medication ?Instructions ?Recorded cefdinir 300 mg capsule 300 mg PO BID #20 caps 04/04/24 phenazopyridine 200 mg tablet 200 mg PO Q8H pain 2 days #6 tabs 04/04/24 (Pyridium) dicyclomine 10 mg capsule 10 mg PO Q8H PRN abdominal pain 10/28/24 #30 caps famotidine 20 mg tablet (Pepcid) 20 mg PO DAILY #30 tabs 10/28/24 ondansetron 4 mg disintegrating 4 mg PO Q6H PRN nausea and 10/28/24 tablet vomiting #12 tabs Allergies Allergy/AdvReac Type Severity Reaction Status Date / Time No Known Allergies Allergy Verified 01/03/23 21:55 [facility] <Sandro Sheikh MD - Last Filed: 12/20/24 00:55> [facility] Disclaimer: The information contained in this section may have been updated after the patient was seen, as this information can be updated by other users. Social History Smoking Status: Current every day smoker alcohol intake: never current occupational status: employed Travel in the last 8 weeks?: None Have you lived/traveled outside [place] in past 30 days?: No Contact w/someone who lives/traveled outside US past 30 days?: No Exposure to someone with infectious disease in past 14 days?: No Do you have a fever (greater than 100.4 F or 38 C)?: No Have you tested positive for COVID-19?: No Exposed to someone with COVID-19 in past 14 days?: No Do you have a sore throat?: No Do you have a cough?: No Do you have any weakness?: No Do you have any diarrhea?: No Are you experiencing any unusual bleeding?: No Do you have any muscle aches/pain?: No Do you have any abdominal pain?: No Are you experiencing loss of taste or smell?: No <Sandro Sheikh MD - Last Filed: 12/20/24 00:55> ROS Obtained: Yes Systems reviewed as appropriate & no additional complaints except as documented Physical Exam <Sandro Sheikh MD - Last Filed: 12/20/24 00:55> General General appearance: alert and in no apparent distress Head Head exam: atraumatic Eye Eye exam: Present normal appearance, PERRL and EOMI ENT ENT exam: Present normal external ear exam Neck Neck exam: Present full ROM Chest Chest inspection: Present symmetric chest wall rise Respiratory Respiratory exam: Present normal lung sounds bilaterally; Absent respiratory distress, wheezes or stridor Cardiovascular Cardiovascular exam: Present regular rate and normal rhythm Abdominal Exam Abdominal exam: Present soft; Absent tenderness or guarding Extremities Exam Extremities exam: Present normal inspection Back Exam Back exam: Present normal inspection Neurological Exam Neurological exam: Present alert, oriented X3, CN II-XII intact and other (Subjective decrease sensation over the medial aspect of her right foot and right forearm. 5 out of 5 strength and sensation otherwise. No other focal neurological deficits) Psychiatric Psychiatric exam: Present normal affect Skin Skin exam: Present warm and dry Medical Decision Making <Sandro Sheikh MD - Last Filed: 12/20/24 00:55> Medical Records Screening: Per USPSTF and CDC recommendations, given the prevalence of disease in our region, it is our hospital?s policy to screen for HIV and viral Hepatitis for all patients aged 18 and over and those with ongoing risk factors. Nic Inquiry Pt receiving controlled substance: No Vital Signs: 12/19/24 22:03 12/19/24 23:00 12/19/24 23:30 Temperature 99.0 F Temperature Source Oral Pulse Rate 53 L 63 Pulse Rate [Left Radial] 74 Respiratory Rate 18 15 18 Blood Pressure 120/80 110/75 Blood Pressure [Right Arm] 117/64 Blood Pressure Mean [Right Arm] 81 Blood Pressure Source [Right Arm] Automatic Cuff Blood Pressure Position [Right Arm] Sitting 02 Sat by Pulse Oximetry 98 98 98 Oxygen Delivery Method Room Air 12/20/24 00:00 12/20/24 00:30 12/20/24 01:02 Temperature Temperature Source Pulse Rate 52 L 58 L 49 L Pulse Rate [Left Radial] Respiratory Rate 13 21 10 L Blood Pressure 113/79 123/84 140/70 Blood Pressure [Right Arm] Blood Pressure Mean [Right Arm] Blood Pressure Source [Right Arm] Blood Pressure Position [Right Arm] 02 Sat by Pulse Oximetry 99 98 98 Oxygen Delivery Method Lab Data Lab Results 12/19/24 22:14: VBG pH 7.33, VBG pCO2 53.4 H, VBG pO2 38.8, VBG HCO3 27.4, VBG Total CO2 29.0 H, VBG O2 Saturation 72.4 H, VBG Base Excess 1.4, VBG Lactic Acid 1.1 12/19/24 22:38: WBC 5.2, RBC 4.17 L, Hgb 12.6, Hct 37.9, MCV 90.9, MCH 30.2, MCHC 33.2, RDW 12.7, Plt Count 197, MPV 10.3, Neut % (Auto) 60.5, Lymph % (Auto) 30.3, Lee % (Auto) 7.8, Eos % (Auto) 1.0, Baso % (Auto) 0.2, Neut # (Auto) 3.2, Lymph # (Auto) 1.6, Lee # (Auto) 0.4, Eos # (Auto) 0.1, Baso # (Auto) 0.0, D-Dimer 0.36, Sodium 140, Potassium 3.7, Chloride 102, Carbon Dioxide 29, Anion Gap 12.7, BUN 11, Creatinine 0.90, Estimated Creat Clear 126, Estimated GFR 73, Est GFR ( Amer) 88, Glucose 86, Calcium 8.8, Total Bilirubin 0.3, AST 28, ALT 17, Alkaline Phosphatase 49, Troponin I < 0.01, Total Protein 6.4, Albumin 3.7, Globulin 2.7, Albumin/Globulin Ratio 1.4, TSH 2.35, Free T4 1.19, Serum HCG, Qual Negative 12/19/24 22:38 12/19/24 22:38 Orders (Tests/Meds): ED MEDICATIONS Discontinued Medications Generic Name Dose Route Start Last Admin Trade Name Arabella PRN Reason Stop Dose Admin Diphenhydramine HCl 25 mg 12/20/24 00:46 12/20/24 01:09 Diphenhydramine 50mg/Ml Vial IV 12/20/24 00:47 25 mg ONCE ONE Administration Droperidol 2.5 mg 12/20/24 00:46 12/20/24 01:10 Droperidol 5mg/2ml Vial IV 12/20/24 00:47 2.5 mg ONCE ONE Administration Iopamidol 80 ml 12/19/24 23:51 12/19/24 23:52 Iopamidol-370 (76%);100ml Bottle IV 12/19/24 23:52 80 ml ONCE ONE Administration Ketorolac Tromethamine 15 mg 12/20/24 00:46 12/20/24 01:09 Ketorolac 30mg/Ml Vial IV 12/20/24 00:47 15 mg ONCE ONE Administration Meclizine HCl 25 mg 12/19/24 22:12 12/19/24 22:44 Meclizine 25mg Tablet PO 12/19/24 22:13 25 mg ONCE ONE Administration Sodium Chloride 10 ml 12/19/24 23:51 12/19/24 23:52 Sodium Chloride 0.9% 10ml Syr (Rad Only) IV 12/19/24 23:52 10 ml ONCE ONE Administration Sodium Chloride 50 ml 12/19/24 23:51 12/19/24 23:52 0.9 % Sodium Chloride 50 Ml Vial IV 12/19/24 23:52 50 ml ONCE ONE Administration ORDERS Category Date Time Status CT angio head Stat Cat Scan 12/19/24 22:[address] angio neck Stat Cat Scan 12/19/24 22:[address] head/brain wo con Stat Cat Scan 12/19/24 22:12 Completed CBC w/Auto Diff [Complete Blood Count Auto Diff] Stat Lab 12/19/24 22:38 Completed CMP [Comprehensive Metabolic Panel] Stat Lab 12/19/24 22:38 Completed D-Dimer Stat Lab 12/19/24 22:38 Completed Free T4 (Free Thyroxine) Stat Lab 12/19/24 22:38 Completed HCG Qualitative, Serum Stat Lab 12/19/24 22:38 Completed TSH [Thyroid Stimulating Hormone] Stat Lab 12/19/24 22:38 Completed Troponin I Q3H Lab 12/20/24 01:15 Ordered Troponin I Q3H Lab 12/20/24 04:15 Ordered Troponin I Stat Lab 12/19/24 22:38 Completed VBG [Venous Blood Gas] Stat RT 12/19/24 22:14 Completed ECG Data Tracing #1: I reviewed this ECG and interpreted as documented below: Normal sinus rhythm. No ST elevation or depression. T wave inversion in V2 and V3. Nonspecific changes. Medical Decision Narrative: Princess Reyes is a 29-year-old female with no significant past medical history who presents to the emergency department for complaints of intermittent dizziness and right upper and right lower extremity numbness and tingling and heaviness. Patient states that over last month, she has had episodes where her right arm and right leg will become heavy and have subjective numbness and tingling. She also reports brain fog during these times. She states that she has been put on a Holter monitor since Friday that was placed by her primary care physician but denies any chest pain or heart palpitations. She denies any shortness of breath. She denies any abdominal pain or recent illnesses. She denies any fever. On arrival, patient is normotensive, heart rate within normal limits, breathing comfortably on room air with oxygen saturation 90% SpO2. Afebrile. Physical exam, as stated above, revealed an overall well-appearing female in no acute respiratory distress. Cardiopulmonary exam is unremarkable. Abdomen is soft, nontender nondistended. She has no nystagmus, cranial nerves II through XII intact. Pupils equal round reactive to light. Extraocular movements intact. No focal neurological deficit, however she has subjective decrease sensation over the medial aspect of her right foot and volar forearm. Strength and sensation otherwise grossly intact. Differential diagnosis includes, but is not limited to: Metabolic derangement such as hypoglycemia, hypothyroidism, electrolyte derangement, complicated migraine, vertebral basilar insufficiency, anemia, stroke, pulmonary embolism, IIH, among others. Insert more Workup in the emergency department included: CTA head and neck, CT head without contrast, CBC, D-dimer, VBG with lactic acid, CMP, troponin, TSH/free T4, test Workup at this time shows no leukocytosis, no anemia, D-dimer negative at 0.36, VBG with pH of 7.33 and lactate normal at 1.1. pCO2 mildly elevated at 53.4. Bicarb mildly elevated to compensate at 29, electrolytes unremarkable and nonactionable, no NONA, liver enzymes within normal limits. Initial troponin less than 0.01. Thyroid studies unremarkable. Negative test. CT imaging interpreted by me personally prior to official radiology read. No intracranial hemorrhage, mass or midline shift. No large vessel occlusion or significant stenosis on my interpretation of CT imaging. However, official radiology reads are pending at this time. Patient did not have any relief of symptoms with 25 mg of oral meclizine. Due to concern for complicated migraine headache, will administer migraine cocktail with IV Toradol 15 mg, 2.5 mg IV droperidol, 25 mg IV Benadryl. At this time, patient's care was handed off to the oncoming physician, Dr. Russell, pending radiology interpretation of CT imaging and reassessment after migraine cocktail. <Carlos Russell MD - Last Filed: 12/20/24 03:05> Medical Records Medical records reviewed: Yes I reviewed the patient's medical records. Vital Signs: 12/19/24 22:03 12/19/24 23:00 12/19/24 23:30 Temperature 99.0 F Temperature Source Oral Pulse Rate 53 L 63 Pulse Rate [Left Radial] 74 Respiratory Rate 18 15 18 Blood Pressure 120/80 110/75 Blood Pressure [Right Arm] 117/64 Blood Pressure Mean [Right Arm] 81 Blood Pressure Source [Right Arm] Automatic Cuff Blood Pressure Position [Right Arm] Sitting 02 Sat by Pulse Oximetry 98 98 98 Oxygen Delivery Method Room Air 12/20/24 00:00 12/20/24 00:30 12/20/24 01:02 Temperature Temperature Source Pulse Rate 52 L 58 L 49 L Pulse Rate [Left Radial] Respiratory Rate 13 21 10 L Blood Pressure 113/79 123/84 140/70 Blood Pressure [Right Arm] Blood Pressure Mean [Right Arm] Blood Pressure Source [Right Arm] Blood Pressure Position [Right Arm] 02 Sat by Pulse Oximetry 99 98 98 Oxygen Delivery Method Lab Data Lab Results 12/19/24 22:14: VBG pH 7.33, VBG pCO2 53.4 H, VBG pO2 38.8, VBG HCO3 27.4, VBG Total CO2 29.0 H, VBG O2 Saturation 72.4 H, VBG Base Excess 1.4, VBG Lactic Acid 1.1 12/19/24 22:38: WBC 5.2, RBC 4.17 L, Hgb 12.6, Hct 37.9, MCV 90.9, MCH 30.2, MCHC 33.2, RDW 12.7, Plt Count 197, MPV 10.3, Neut % (Auto) 60.5, Lymph % (Auto) 30.3, Lee % (Auto) 7.8, Eos % (Auto) 1.0, Baso % (Auto) 0.2, Neut # (Auto) 3.2, Lymph # (Auto) 1.6, Lee # (Auto) 0.4, Eos # (Auto) 0.1, Baso # (Auto) 0.0, D-Dimer 0.36, Sodium 140, Potassium 3.7, Chloride 102, Carbon Dioxide 29, Anion Gap 12.7, BUN 11, Creatinine 0.90, Estimated Creat Clear 126, Estimated GFR 73, Est GFR ( Amer) 88, Glucose 86, Calcium 8.8, Total Bilirubin 0.3, AST 28, ALT 17, Alkaline Phosphatase 49, Troponin I < 0.01, Total Protein 6.4, Albumin 3.7, Globulin 2.7, Albumin/Globulin Ratio 1.4, TSH 2.35, Free T4 1.19, Serum HCG, Qual Negative Orders (Tests/Meds): ED MEDICATIONS Discontinued Medications Generic Name Dose Route Start Last Admin Trade Name Freq PRN Reason Stop Dose Admin Diphenhydramine HCl 25 mg 12/20/24 00:46 12/20/24 01:09 Diphenhydramine 50mg/Ml Vial IV 12/20/24 00:47 25 mg ONCE ONE Administration Droperidol 2.5 mg 12/20/24 00:46 12/20/24 01:10 Droperidol 5mg/2ml Vial IV 12/20/24 00:47 2.5 mg ONCE ONE Administration Iopamidol 80 ml 12/19/24 23:51 12/19/24 23:52 Iopamidol-370 (76%);100ml Bottle IV 12/19/24 23:52 80 ml ONCE ONE Administration Ketorolac Tromethamine 15 mg 12/20/24 00:46 12/20/24 01:09 Ketorolac 30mg/Ml Vial IV 12/20/24 00:47 15 mg ONCE ONE Administration Meclizine HCl 25 mg 12/19/24 22:12 12/19/24 22:44 Meclizine 25mg Tablet PO 12/19/24 22:13 25 mg ONCE ONE Administration Sodium Chloride 10 ml 12/19/24 23:51 12/19/24 23:52 Sodium Chloride 0.9% 10ml Syr (Rad Only) IV 12/19/24 23:52 10 ml ONCE ONE Administration Sodium Chloride 50 ml 12/19/24 23:51 12/19/24 23:52 0.9 % Sodium Chloride 50 Ml Vial IV 12/19/24 23:52 50 ml ONCE ONE Administration ORDERS Category Date Time Status CT angio head Stat Cat Scan 12/19/24 22:[address] angio neck Stat Cat Scan 12/19/24 22:[address] head/brain wo con Stat Cat Scan 12/19/24 22:12 Completed CBC w/Auto Diff [Complete Blood Count Auto Diff] Stat Lab 12/19/24 22:38 Completed CMP [Comprehensive Metabolic Panel] Stat Lab 12/19/24 22:38 Completed D-Dimer Stat Lab 12/19/24 22:38 Completed Free T4 (Free Thyroxine) Stat Lab 12/19/24 22:38 Completed HCG Qualitative, Serum Stat Lab 12/19/24 22:38 Completed TSH [Thyroid Stimulating Hormone] Stat Lab 12/19/24 22:38 Completed Troponin I Q3H Lab 12/20/24 01:15 Ordered Troponin I Q3H Lab 12/20/24 04:15 Ordered Troponin I Stat Lab 12/19/24 22:38 Completed VBG [Venous Blood Gas] Stat RT 12/19/24 22:14 Completed Medical Decision Narrative: Princess Reyes is a 29-year-old female with no significant past medical history who presents to the emergency department for complaints of intermittent dizziness and right upper and right lower extremity numbness and tingling and heaviness. Patient states that over last month, she has had episodes where her right arm and right leg will become heavy and have subjective numbness and tingling. She also reports brain fog during these times. She states that she has been put on a Holter monitor since Friday that was placed by her primary care physician but denies any chest pain or heart palpitations. She denies any shortness of breath. She denies any abdominal pain or recent illnesses. She denies any fever. On arrival, patient is normotensive, heart rate within normal limits, breathing comfortably on room air with oxygen saturation 90% SpO2. Afebrile. Physical exam, as stated above, revealed an overall well-appearing female in no acute respiratory distress. Cardiopulmonary exam is unremarkable. Abdomen is soft, nontender nondistended. She has no nystagmus, cranial nerves II through XII intact. Pupils equal round reactive to light. Extraocular movements intact. No focal neurological deficit, however she has subjective decrease sensation over the medial aspect of her right foot and volar forearm. Strength and sensation otherwise grossly intact. Differential diagnosis includes, but is not limited to: Metabolic derangement such as hypoglycemia, hypothyroidism, electrolyte derangement, complicated migraine, vertebral basilar insufficiency, anemia, stroke, pulmonary embolism, IIH, among others. Insert more Workup in the emergency department included: CTA head and neck, CT head without contrast, CBC, D-dimer, VBG with lactic acid, CMP, troponin, TSH/free T4, test Workup at this time shows no leukocytosis, no anemia, D-dimer negative at 0.36, VBG with pH of 7.33 and lactate normal at 1.1. pCO2 mildly elevated at 53.4. Bicarb mildly elevated to compensate at 29, electrolytes unremarkable and nonactionable, no NONA, liver enzymes within normal limits. Initial troponin less than 0.01. Thyroid studies unremarkable. Negative test. CT imaging interpreted by me personally prior to official radiology read. No intracranial hemorrhage, mass or midline shift. No large vessel occlusion or significant stenosis on my interpretation of CT imaging. However, official radiology reads are pending at this time. Patient did not have any relief of symptoms with 25 mg of oral meclizine. Due to concern for complicated migraine headache, will administer migraine cocktail with IV Toradol 15 mg, 2.5 mg IV droperidol, 25 mg IV Benadryl. At this time, patient's care was handed off to the oncoming physician, Dr. Russell, pending radiology interpretation of CT imaging and reassessment after migraine cocktail. Russell: Upon my assumption of care patient is stable. She has had CT imaging which I personally interpreted and do not appreciate acute intracranial or vessel abnormality, see radiology reads for final interpretations. Migraine cocktail was administered. I reassessed the patient shortly thereafter and she states she feels much better. She states she has none of the symptoms which brought her in. This is significantly reassuring since she has an otherwise benign workup. She was placed into ED observation at 0120 for continued symptomatic monitoring and for observation for 2 hours after the droperidol administration per hospital protocol. She remains on the cardiac cath lab radiology technologist and has been frequently reassessed. Patient continues to be comfortable. I believe she is appropriate for discharge at this time since she remains completely asymptomatic from any of the concerns that brought her into the ER and has a benign workup. Patient is comfortable with plan for discharge. Patient was given instructions on symptomatic management, follow up instructions including with PCP and for the Holter monitor, and return precautions for the emergency department. Patient indicated understanding and was discharged in stable condition. Total time in ED observation: 1 hour 50 minutes Critical Care <Sandro Sheikh MD - Last Filed: 12/20/24 00:55> Critical Care Time Critical Care Time: No
[2024-12-19] MEDS: MECLIZINE 25MG TABLET 25 MG PO (22:44)
[2024-12-19 22:48] LABS: Lactate Venous 1.1 mmol/L (0.4-2.0); VBG HCO3 27.4 mmol/L (23-30); VBG PH 7.33 mmol/L (7.31-7.41); VBG PO2 38.8 mmol/L (28-40)
[2024-12-19 22:54] LABS: VBG PCO2 53.4 mmol/L (35-51)
[2024-12-19 23:00] VITALS: BP 120/80; PULSE 53; RESP 15; O2SAT 98
[2024-12-19 23:00] LABS: Hematocrit 37.9 % (37.0-47.0); Hemoglobin 12.6 g/dL (12.2-16.2); Immature Granulocytes % 0.2 %; Mean Corpuscular HGB Conc 33.2 g/dL (31.8-35.4); Mean Corpuscular Hemoglobin 30.2 pg (27.0-31.2); Mean Corpuscular Volume 90.9 fl (81-99); Nucleated Red Blood Cells % 0 %; Platelet Count 197 K/mm3 (142-424); Red Blood Count 4.17 M/mm3 (4.20-5.40); Red Cell Distribution Width-SD 41.8 fL; White Blood Count 5.2 K/mm3 (4.8-10.8)
[2024-12-19 23:08] LABS: Alanine Aminotransferase 17 U/L (12-78); Albumin Level 3.7 g/dl (3.5-5.0); Albumin/Globulin Ratio 1.4 (1.1-1.8); Alkaline Phosphatase 49 U/L (38-126); Anion Gap 12.7 mEq/L (5-15); Aspartate Amino Transferase 28 U/L (14-36); Bilirubin,Total 0.3 mg/dl (0.2-1.3); Blood Urea Nitrogen 11 mg/dl (7-17); Calcium 8.8 mg/dl (8.4-10.2); Carbon Dioxide 29 mmol/L (22.0-30.0); Chloride 102 mmol/L (98-107); Creatinine Clearance Estimated 126 mL/min (50-200); Creatinine,Serum 0.90 mg/dl (0.52-1.04); Estimated Glomerular Filt Rate 73 ml/min (>60); GFR (African American) 88 ML/MIN (>60); Globulin 2.7 g/dL (1.3-3.2); Glucose 86 mg/dl (74-100); HCG Qualitative, Serum Negative (Negative); Potassium 3.7 mmoL/L (3.5-5.1); Sodium 140 mmol/L (136-145); Total Protein,Serum 6.4 g/dl (6.3-8.2)
--- NOTE | 2024-12-19 23:09 | PC.NURSE ---
rounded on pt. pt reports meclizine has not helped her sx. Dr Sheikh notified.
[2024-12-19 23:11] LABS: D-Dimer 0.36 ug/mL (0.0-0.5)
[2024-12-19 23:24] LABS: Troponin I < 0.01 ng/ml (0.00-0.034)
[2024-12-19 23:26] LABS: Free T4 (Free Thyroxine) 1.19 ng/dl (0.78-2.19)
[2024-12-19 23:30] VITALS: BP 110/75; PULSE 63; RESP 18; O2SAT 98
[2024-12-19 23:39] LABS: Thyroid Stimulating Hormone 2.35 uIU/mL (0.465-4.68)
[2024-12-19] MEDS: 0.9 % SODIUM CHLORIDE 50 ML VIAL IV (23:52)
[2024-12-19] MEDS: SODIUM CHLORIDE 0.9% 10ML SYR (RAD ONLY) 10 ML IV (23:52)
[2024-12-19] MEDS: IOPAMIDOL-370 (76%);100ML BOTTLE 80 ML IV (23:52)
[2024-12-20] VITALS: BP 113/79; PULSE 52; RESP 13; O2SAT 99
[2024-12-20 00:30] VITALS: BP 123/84; PULSE 58; RESP 21; O2SAT 98
[2024-12-20 01:02] VITALS: BP 140/70; PULSE 49; RESP 10; O2SAT 98
[2024-12-20] MEDS: KETOROLAC 30MG/ML VIAL 15 MG IV (01:09)
[2024-12-20] MEDS: droPERidol 5MG/2ML VIAL 2.5 MG IV (01:10)
[2024-12-20 02:15] VITALS: BP 138/78; PULSE 45; RESP 17; O2SAT 98
[2024-12-20 03:15] VITALS: BP 128/76; PULSE 53; RESP 18; O2SAT 98
[2024-12-20 03:28] VITALS: BP 128/76; PULSE 53; RESP 18; TEMP 36.7; O2SAT 98
== END 2024-12-20 03:29 | disposition home or self-care (01) ==
PROVIDERS: Emergency Provider Student in an Organized Health Care Education/Training Program
DX: G43.909 Migraine, unspecified, not intractable, without status migrainosus (principal); R42 Dizziness and giddiness; R20.2 Paresthesia of skin; F17.210 Nicotine dependence, cigarettes, uncomplicated
CPT/HCPCS: 70450; 70496; 70498; 80053; 82803; 84439; 84443; 84484; 84703; 85025; 85378; 93005; 96374; 96375; 99285; J1200; J1790; J1885; Q9967

== ENCOUNTER 2025-02-24 19:44 | Emergency (ER) | payer BC, SELFPAY ==
--- OUTSIDE RECORDS SUMMARY | 2024-12-27 14:45 | XMS_ITS | Encounter Summary ---
[facility] Address [address] [place] [address] Care Team Providers Care Clearance Cutter Name Role Phone GracielaPat guadalupe Primary Care Provider [phone] Reason for Visit * Reason Comments Hypoglycemia New dexcom Encounter Details Date Type Department Care Team (Late st Contact Info) Description 12/27/2024 2:45 PM EDT Office Visit [facility] [address] [place] [address] Neri Light MD [address] [place] [address] Hypoglycemia (Primary Dx) Social History Tobacco Use Types Packs/Day Years Used Date Smoking Tobacco: Former Cigarettes 1 10 0 06/24/2006 - 06/24/2016 Passive Smoke Exposure: Past Smokeless Tobacco: Never Alcohol Use Standard Drinks/Week Comments No 0 (1 standard drink = 0.6 oz pur e alcohol) AUDIT-C Answer Date Recorded Q1: How often do you have a drink containing alcohol? Never 10/17/2023 Q2: How many drinks containi ng alcohol do you have on a typical day when you are drinking? Patient does not drink Q3: How often do you have si x or more drinks on one occasion? Never 10/17/2023 PHQ-2 Answer Date Recorded Retired PHQ-9: Brief Depression Severity Measure Score 0 07/18/2022 Abuse Screen Answer Date Recorded Feels Unsafe at Home or Work/School no 10/17/2023 Feels Threatened by Someone no 10/07 Does Anyone Try to Keep You From Having Contact with Others or Doing Things Outside Your Home? no 10/17/2023 Physical Signs of Abuse Present no 10/17/2023 Housing Stability Answer Date Recorded Current Living Arrangements home 10/07 Potentially Unsafe Housing Conditions Not on nadya e 10/17/2023 Disabilities Answer Date Recorded Difficulty Concentrating, Remembering or Making Decisions no 10/17/2023 Difficulty Managing Errands Independently no 10/17/2023 Education Answer Date Recorded Help with school or training? Not on file Preferred Language Luxembourger 10/16/2023 PHQ-2 Answer Date Recorded Patient Health Questionnaire-9 Score 24 11/15/2024 Education Answer Date Recorded What is the highest level of school you have completed or the highest degree you have received? GED or equivalent Comments No Sex and Gender Information Value Date Recorded Sex Assigned at Female 02/09/2025 9:59 AM EDT Legal Sex Female 12:08 PM EDT Gender Identity Not on file Sexual Orientation Not on file documented as of this encounter Last Filed Vital Signs Vital Sign Reading Time Taken Comments Blood Pressure 108/68 12/27/2024 2:46 PM EDT Pulse 78 12/27/2024 2:46 PM EDT Temperature 36.6 C (97.8 F) 12/27/2024 2:46 PM EDT Respiratory Rate 18 12/27/2024 2:46 PM EDT Oxygen Saturation 94% 12/27/2024 2:46 PM EDT Inhaled Oxygen Concentration - - Weight 99.3 kg (219 lb) 12/27/2024 2:46 PM EDT Height 160 cm (5' 3 ) 12/27/2024 2:46 PM EDT Body Mass Index 38.79 12/27/2024 2:46 PM EDT documented in this encounter Progress Notes * Neri Light MD - 12/27/2024 2:45 PM EDT Subjective Princess Warren is a 29 y.o. female. Hypoglycemia She had issues keeping her glucometer on as I had given her a sample of dexom Her insulin level was normal She had recent even where she felt shaky and it was 58 Last night she had tingling in her RUE and some weight sensation with her RLE as this woke herfrom sleep Sugar was 64 with this episode She has been eating small frequent meals She cannot eat a lot as sh had the sleeve The following portions of the patient's history were reviewed and updated as appropriate: allergies, current medications, past family history, past medical history, past social history, past surgicalhistory, and problem list. Review of Systems Constitutional: Negative. Respiratory: Negative. Cardiovascular: Negative. Psychiatric/Behavioral: Negative. Objective Physical Exam Vitals and nursing note reviewed. Constitutional: General: She is not in acute distress. Appearance: Normal appearance. She is well-developed. Cardiovascular: Rate and Rhythm: Normal rate and regular rhythm. Heart sounds: Normal heart sounds. Pulmonary: Effort: Pulmonary effort is normal. Breath sounds: Normal breath sounds. Neurological: Mental Status: She is alert and oriented to person, place, and time. Psychiatric: Mood and Affect: Mood normal. Behavior: Behavior normal. Thought Content: Thought content normal. Judgment: Judgment normal. Assessment & Plan Diagnoses and all orders for this visit: 1. Hypoglycemia (Primary) Dexcom placed today to monitor for low glucose as well as other fluctuations, reviewed recent labs Still awaiting marble ceiling installer Still with uncertain cause of her spells at this time documented in this encounter Plan of Treatment Upcoming Encounters Date Type Department Care Team (Late st Contact Info) Description 02/25/2025 8:00 AM EDT Appointment [facility] NONINVASIVE LAB [address] [facility] [address] [place] [address] 02/28/2025 8:45 AM EDT Office Visit [facility] [address] [place] [address] Neri Light MD [address] [place] [address] 03/24/2025 11:00 AM EDT Office Visit [facility] ENDOCRINOLOGY [address] [place] [phone] Calli Rodriguez PA-C [address] [facility] [address] [place] [address] 05/20/2025 11:30 AM EST Office Visit [facility] [address] [place] [address] Pat Owens DO [address] [place] [address] 06/16/2025 12:30 PM EST Office Visit [facility] SLEEP MEDICINE [address] [place] [phone] Breanne Stone, CLINICAL MENTAL HEALTH COUNSELOR [address] [address] 04/28/2026 1:30 PM EST Office Visit [facility] CARDIOLOGY [address] [facility] [address] [place] [address] Mateo Luque MD [address] [facility] [address] [facility] [address] [place] [address] documented as of this encounter Visit Diagnoses Diagnosis Hypoglycemia- Primary Hypoglycemia, unspecified documented in this encounter Additional Health Concerns Assessment Noted Time PHQ-2 Depression Total Score: 3 07/11/19 24 12:38 PM EST documented as of this encounter Care Teams Clearance Cutter Relationship Specialty Start Date End Date Pat Owens DO [address] [place] [address] PCP - General Family Medicine 10/30/18 documented as of this encounter
--- OUTSIDE RECORDS SUMMARY | 2025-01-11 16:00 | XMS_ITS | Encounter Summary ---
[facility] Address [address] [place] [address] Care Team Providers Care Planer Offbearer Name Role Phone Pat Owens Primary Care Provider [phone]- [phone] Reason for Referral * Diagnostic Imaging (Routine) - Authorized Specialty Diagnoses / Procedures Referred By Contac t Referred To Contact Cardiology Diagnoses Syncope, unspecified syncope type Procedures Adult Transthoracic Echo Complete W/ Cont if Necessary Per Protocol [place] ECHO TTHRC R-T 2D W/WOM-MODE COMPL SPEC&COLR D [place] ECHO TRANSTHORC R-T 2D W/WO M-MODE REC F-UP/LMTD Neri Light MD [address] [place] [address] Phone: tel: fax: [facility] NONINVASIVE LAB [address] [place] [address] 3rd [place] [address] Phone: tel: fax: Referral ID Status Reason Start Date Expiration Date V isits Requested Visits Authorized Authorized 01/11/2025 04/12/2026 1 1 * Diagnostic Medical (Routine) - Closed Specialty Diagnoses / Procedures Referred By Contac t Referred To Contact Radiology Diagnoses Syncope, unspecified syncope type Procedures EEG Neri Light MD [address] [place] [address] Phone: tel: fax: [facility] [address] [place] [address] Phone: tel: Referral ID Status Reason Start Date Expiration Date Visits Re quested Visits Authorized Closed 01/11/2025 04/12/2026 1 1 * Consultation (Routine) - Authorized Specialty Diagnoses / Procedures Referred By Contac t Referred To Contact Cardiology Diagnoses Syncope, unspecified syncope type Procedures [place] OFFICE/OUTPATIENT NEW MODERATE MDM 45 MINUTES Neri Light MD [address] [place] [address] Phone: tel: fax: Mateo Luque MD [address] [facility] [address] [facility] [address] [place] [address] Phone: tel: fax: Referral ID Status Reason [...] Description 01/11/2025 4:00 PM EDT Office Visit [facility] [address] [place] [phone] Neri Light MD [address] [place] [address] Syncope, unspecified syncope type (Primary [...] or training? Not on file Preferred Language Sudanese 10/16/2023 PHQ-2 Answer Date Recorded Patient Health [...] ECHO, EEG, and have her see her hand tire trimmer again. Tilt table still pending and was ordered late December documented in this encounter Plan of Treatment Upcoming Encounters Date Type Department Care Team (Late Contact Info) Description 02/25/2025 8:00 AM EDT Appointment [facility] NONINVASIVE LAB [address] [facility] 3rd [place] [address] 02/28/2025 8:45 AM EDT Office Visit [facility] MED[facility] [address] [place] [address] Neri Light MD [address] [place] [address] 03/24/2025 11:00 AM EDT Office Visit [facility] ENDOCRINOLOGY [address] [phone] Calli Rodriguez PA-C [address] [address] 05/20/2025 11:30 AM EST Office Visit [facility] MED[facility] [address] [place] [address] Pat Owens DO [address] [place] [place] [address] 06/16/2025 12:30 PM EST Office Visit [facility] SLEEP MEDICINE [address] [facility] [place] [phone] Breanne Stone APRN [address] [facility] [address] [place] [address] 04/28/2026 1:30 PM EST Office Visit [facility] CARDIOLOGY [address] [facility] [place] [address] [place] [phone] Mateo Luque MD [address] [facility] [address] [place] [address] [place], [place] [phone] Scheduled Orders Name Type Priority Associated Diagnoses Orde r Schedule Adult Transthoracic Echo Complete W/ Cont if Necessary Per Protocol Echocardiography Routine Syncope, unspecified syncope type Expected: 02/11/2025 (Approximate), Expires: 01/11/2026 documented as of this encounter Results * EEG AWAKE OR DROWSY PORTABLE (01/20/2025 9:50 AM EDT) Impressions NEUROLOGY - 01/20/2025 10:24 AM EDT Normal study This report is transcribed using the [employer] dictation system. Narrative NEUROLOGY - 01/20/2025 10:24 [...] documented as of this encounter Care Teams Planer Offbearer Relationship Specialty Start Date End Date Pat Owens DO [address] [place] [address] PCP - General Family Medicine 10/30/18 documented as of this encounter
--- OUTSIDE RECORDS SUMMARY | 2025-01-14 13:00 | XMS_ITS | Encounter Summary ---
[facility] Organization [facility] Address [address] [place] [address] Care Team Providers Care It Infrastructure Manager Name Role Phone Pat Owens Primary Care Provider Reason for Visit * Reason Comments Right bundle branch block (RBBB) Loss of Consciousness Encounter Details Date Type Department Care Team (Late st Contact Info) Description 01/14/2025 1:00 PM EDT Office Visit [facility]Y [address] [facility] [address] [place] [address] Mateo Luque MD [address] [facility] [address] [place] [address] Vasodepressor syncope (Primary Dx) Social History Tobacco Use Types [...] or training? Not on file Preferred Language Egyptian 10/16/2023 PHQ-2 Answer Date Recorded Patient Health [...] Sign Reading Time Taken Comments Blood Pressure 100/62 01/14/2025 12:54 PM EDT Pulse 87 01/14/2025 12:54 PM EDT Temperature - - Respiratory Rate - - Oxygen Saturation 98% 01/14/2025 12:54 PM EDT Inhaled Oxygen Concentration - - Weight 98.9 kg (218 lb) 01/14/2025 12:54 PM EDT Height 160 cm (5' 3 ) 01/14/2025 12:54 PM EDT Body Mass Index 38.62 01/14/2025 12:54 PM EDT documented in this encounter Progress Notes * Mateo Luque MD - 01/14/2025 1:00 PM EDTAssociated Order(s): ECG 12 Lead Post-Procedure Diagnose(s): Vasodepressor syncope [facility] Cardiology Office Progress Note Princess Warren 1995 [address] [place] [address] VISIT DATE: 01/14/25 PCP: Pat Owens DO [address] [facility] [address] IDENTIFICATION: A 29 y.o. female, single, [facility] PROBLEM LIST: Syncope 12/31 MRI brain: negative 12/31 5 day Holter: SR, 37-128, avg HR 68, rare SVE, no VE RBBB 08/01 Echo: normal LVEF, LVH, mild TR (LHS) Horseshoe kidney Restless leg syndrome Tobacco use, quit 2019 Surgical history: section Cholecystectomy Total hysterectomy Gastric sleeve(Dr Dumont), 12/28 preop 278 CC: Chief Complaint Patient presents with Right bundle branch block (RBBB) Loss of Consciousness Allergies No Known Allergies Current Medications Current Outpatient Medications Medication Instructions albuterol sulfate HFA 108 (90 Base) MCG/ACT inhaler 2 puffs, Inhalation, Every 4 Hours PRN estradiol (ESTRACE) 2 mg, Oral, Daily, CALL FOR APPT. ANNUAL IS DUE hydrOXYzine (ATARAX) 50 MG tablet Take 1 tablet by mouth 2 (Two) Times a Day as needed for panic orsleep ibuprofen (ADVIL,MOTRIN) 600 mg, Oral, Every 6 Hours Scheduled lamoTRIgine (LAMICTAL) 200 mg, Oral, Daily lamoTRIgine (LAMICTAL) 100 mg, Oral, 2 Times Daily LORazepam (ATIVAN) 0.5 mg, Oral, 2 Times Daily PRN Progesterone (PROMETRIUM) 100 mg, Oral, Daily QUEtiapine (SEROquel) 25 MG tablet Take 1 tablet by mouth every night 1 hour before bedtime. SUMAtriptan (Imitrex) 100 MG tablet Take one tablet at onset of headache. May repeat dose one time in 2 hours if headache not relieved. traZODone (DESYREL) 100-200 mg, Oral, Nightly venlafaxine XR (EFFEXOR-XR) 37.5 MG 24 hr capsule Take 1 capsule by mouth Daily for 7 days, THEN 1 capsule 2 (Two) Times a Day History of Present Illness HPI Princess Warren presents for follow up per Pat Owens DO for reevaluation and syncope. She notes low blood pressure on several occasions and some presyncope and syncope. She was just taken off trazodone yesterday. OBJECTIVE: Vitals: 01/14/25 1254 BP: 100/62 BP Location: Left arm Patient Position: Sitting Cuff Size: Adult Pulse: 87 SpO2: 98% Weight: 98.9 kg (218 lb) Height: 160 cm (63 ) Body mass index is 38.62 kg/m??. Wt Readings from Last 3 Encounters: 01/14/25 98.9 kg (218 lb) 01/11/25 98.9 kg (218 lb) 12/27/24 99.3 kg (219 lb) Max weight 265 lbs PHYSICAL EXAMINATION: Constitutional: Appearance: Healthy appearance. Not in distress. Neck: Vascular: No JVR. JVD normal. Pulmonary: Effort: Pulmonary effort is normal. Breath sounds: Normal breath sounds. No wheezing. No rhonchi. No rales. Chest: Chest wall: Not tender to palpatation. Cardiovascular: PMI at left midclavicular line. Normal rate. Regular rhythm. Normal S1. Normal S2. Murmurs: There is no murmur. No gallop. No click. No rub. Pulses: Intact distal pulses. Edema: Peripheral edema absent. Abdominal: General: Bowel sounds are normal. Palpations: Abdomen is soft. Tenderness: There is no abdominal tenderness. Musculoskeletal: Normal range of motion. General: No tenderness. Skin: General: Skin is warm and dry. Comments: Diffuse tattoos Neurological: General: No focal deficit present. Mental Status: Alert and oriented to person, place and time. Diagnostic Data: ECG 12 Lead Date/Time: 01/14/2025 1:14 PM Performed by: Mateo Luque MD Authorized by: Mateo Luque MD Comparison: compared with previous ECG from 06/14/2022 Similar to previous ECG Rhythm: sinus rhythm BPM: 87 Conduction: right bundle branch block Clinical impression: abnormal EKG LABS: Lab Results Component Value Date CHLPL 184 09/27/2021 TRIG 85 09/27/2021 HDL 50 09/27/2021 LDL 118 (H) 09/27/2021 Lab Results Component Value Date GLUCOSE 77 12/17/2024 CALCIUM 8.9 12/17/2024 NA 142 12/17/2024 K 4.2 12/17/2024 CO2 25 12/17/2024 CL 106 12/17/2024 BUN 8 12/17/2024 CREATININE 0.82 12/17/2024 EGFR 98 12/17/2024 BCR 10 12/17/2024 ANIONGAP 6.0 10/18/2023 Lab Results Component Value Date WBC 3.9 12/17/2024 HGB 13.4 12/17/2024 HCT 44.2 12/17/2024 MCV 96 12/17/2024 PLT 203 12/17/2024 Lab Results Component Value Date HGBA1C 4.9 12/17/2024 Lab Results Component Value Date TSH 3.900 09/27/2021 Advance Care Planning ACP discussion was held with the patient during this visit. Patient does not have an advance directive, information provided. ASSESSMENT: Diagnosis Plan 1. Vasodepressor syncope PLAN: Vasodepressor syncope agree with discontinuation of trazodone. She will follow her blood pressure for 1 week after being off trazodone and contact us. Pat Owens DO, thank you for referring Ms. Warren for re-evaluation. I have forwarded my electronically generated recommendations to you for review. Please do not hesitate to call with any questions. Mateo Luque MD, [facility] documented in this encounter Plan of Treatment Upcoming Encounters Date Type Department Care Team (Late st Contact Info) Description 02/25/2025 8:00 AM EDT Appointment [facility] NONINVASIVE LAB [address] [facility] [address] [place] [address] 02/28/2025 8:45 AM EDT Office Visit [facility] FAMILY MEDICINE [address] [place] [place] [phone] Neri Light MD [address] [place] [address] 03/24/2025 11:00 AM EDT Office Visit [facility] ENDOCRINOLOGY [address] [address] Calli Rodriguez PA-C [address] [address] 05/20/2025 11:30 AM EST Office Visit [facility] [address] [place] [address] Pat Owens DO [address] [place], [place] [phone] 06/16/2025 12:30 PM EST Office Visit [facility] SLEEP MEDICINE [address] [place] [address] Breanne Stone APRN [address] [facility] [address] [place], [place] [id number] 04/28/2026 1:30 PM EST Office Visit [facility] CARDIOLOGY [address] [facility] [address] [place] [phone] Mateo Luque MD [address] [facility] [address] [place], [place] [id number] documented as of this encounter Procedures Procedure Name Priority Date/Time Associated Diagnosis Comments ECG 12-LEAD Routine 01/14/2025 Vasodepressor syncope documented in this encounter Results * ECG 12-LEAD (01/14/2025) Narrative 01/14/2025 Mateo Luque MD 01/14/2025 1:16 PM ECG 12 Lead Date/Time: 01/14/2025 1:14 PM Performed by: Mateo Luque MD Authorized by: Mateo Luque MD Comparison: compared with previous ECG from 06/14/2022 Similar to previous ECG Rhythm: sinus rhythm BPM: 87 Conduction: right bundle branch block Clinical impression: abnormal EKG Procedure Note Mateo Luque MD - 01/14/2025 1:00 PM EDT [facility] Cardiology Office Progress Note Princess Warren 1995 [address] [place] [address] VISIT DATE: 01/14/25 PCP: Pat Owens DO [address] [place] [address] IDENTIFICATION: A 29 y.o. female, single, [facility] PROBLEM LIST: Syncope 12/31 MRI brain: negative 12/31 5 day Holter: SR, 37-128, avg HR 68, rare SVE, no VE RBBB 08/01 Echo: normal LVEF, LVH, mild TR (LHS) Horseshoe kidney Restless leg syndrome Tobacco use, quit 2019 Surgical history: section Cholecystectomy Total hysterectomy Gastric sleeve(Dr Dumont), 12/28 preop 278 CC: Chief Complaint Patient presents with Right bundle branch block (RBBB) Loss of Consciousness Allergies No Known Allergies Current Medications Current Outpatient Medications Medication Instructions albuterol sulfate HFA 108 (90 Base) MCG/ACT inhaler 2 puffs, Inhalation,Every 4 Hours PRN estradiol (ESTRACE) 2 mg, Oral, Daily, CALL FOR APPT. ANNUAL IS DUE hydrOXYzine (ATARAX) 50 MG tablet Take 1 tablet by mouth 2 (Two) Times aDay as needed for panic or sleep ibuprofen (ADVIL,MOTRIN) 600 mg, Oral, Every 6 Hours Scheduled lamoTRIgine (LAMICTAL) 200 mg, Oral, Daily lamoTRIgine (LAMICTAL) 100 mg, Oral, 2 Times Daily LORazepam (ATIVAN) 0.5 mg, Oral, 2 Times Daily PRN Progesterone (PROMETRIUM) 100 mg, Oral, Daily QUEtiapine (SEROquel) 25 MG tablet Take 1 tablet by mouth every night 1hour before bedtime. SUMAtriptan (Imitrex) 100 MG tablet Take one tablet at onset of headache.May repeat dose one time in 2 hours if headache not relieved. traZODone (DESYREL) 100-200 mg, Oral, Nightly venlafaxine XR (EFFEXOR-XR) 37.5 MG 24 hr capsule Take 1 capsule by mouthDaily for 7 days, THEN 1 capsule 2 (Two) Times a Day History of Present Illness HPI Princess Teran Briana presents for follow up per Janneth Owens DO for reevaluation and syncope. She notes low blood pressure on several occasions and some presyncope andsyncope. She was just taken off trazodone yesterday. OBJECTIVE: Vitals: 01/14/25 1254 BP: 100/62 BP Location: Left arm Patient Position: Sitting Cuff Size: Adult Pulse: 87 SpO2: 98% Weight: 98.9 kg (218 lb) Height: 160 cm (63 ) Body mass index is 38.62 kg/m . Wt Readings from Last 3 Encounters: 01/14/25 98.9 kg (218 lb) 01/11/25 98.9 kg (218 lb) 12/27/24 99.3 kg (219 lb) Max weight 265 lbs PHYSICAL EXAMINATION: Constitutional: Appearance: Healthy appearance. Not in distress. Neck: Vascular: No JVR. JVD normal. Pulmonary: Effort: Pulmonary effort is normal. Breath sounds: Normal breath sounds. No wheezing. No rhonchi. No rales. Chest: Chest wall: Not tender to palpatation. Cardiovascular: PMI at left midclavicular line. Normal rate. Regular rhythm. Normal S1.Normal S2. Murmurs: There is no murmur. No gallop. No click. No rub. Pulses: Intact distal pulses. Edema: Peripheral edema absent. Abdominal: General: Bowel sounds are normal. Palpations: Abdomen is soft. Tenderness: There is no abdominal tenderness. Musculoskeletal: Normal range of motion. General: No tenderness. Skin: General: Skin is warm and dry. Comments: Diffuse tattoos Neurological: General: No focal deficit present. Mental Status: Alert and oriented to person, place and time. Diagnostic Data: ECG 12 Lead Date/Time: 01/14/2025 1:14 PM Performed by: Mateo Luque MD Authorized by: Mateo Luque MD Comparison: compared with previous ECGfrom 06/14/2022 Similar to previous ECG Rhythm: sinus rhythm BPM: 87 Conduction: right bundle branch block Clinical impression: abnormal EKG LABS: Lab Results Component Value Date CHLPL 184 09/27/2021 TRIG 85 09/27/2021 HDL 50 09/27/2021 LDL 118 (H) 09/27/2021 Lab Results Component Value Date GLUCOSE 77 12/17/2024 CALCIUM 8.9 12/17/2024 NA 142 12/17/2024 K 4.2 12/17/2024 CO2 25 12/17/2024 CL 106 12/17/2024 BUN 8 12/17/2024 CREATININE 0.82 12/17/2024 EGFR 98 12/17/2024 BCR 10 12/17/2024 ANIONGAP 6.0 10/18/2023 Lab Results Component Value Date WBC 3.9 12/17/2024 HGB 13.4 12/17/2024 HCT 44.2 12/17/2024 MCV 96 12/17/2024 PLT 203 12/17/2024 Lab Results Component Value Date HGBA1C 4.9 12/17/2024 Lab Results Component Value Date TSH 3.900 09/27/2021 Advance Care Planning ACP discussion was held with the patient during this visit. Patient doesnot have an advance directive, information provided. ASSESSMENT: Diagnosis Plan 1. Vasodepressor syncope PLAN: Vasodepressor syncope agree with discontinuation of trazodone. She willfollow her blood pressure for 1 week after being off trazodone and contactus. Pat Owens DO, thank you for referring Ms. Warren forre- evaluation. I have forwarded my electronically generated recommendations to you forreview. Please do not hesitate to call with any questions. Mateo Luque MD, [facility] us Mateo Luque MD ECG ORDERABLES Final Result documented in this encounter Visit Diagnoses Diagnosis Vasodepressor syncope- Primary Syncope and collapse documented in this encounter Additional Health Concerns Assessment Noted Time PHQ-2 Depression Total Score: 3 07/11/19 24 12:38 PM EST documented as of this encounter Care Teams It Infrastructure Manager Relationship Specialty Start Date End Date Pat Owens DO [address] [place] [address] PCP - General Family Medicine 10/30/18 documented as of this encounter
--- OUTSIDE RECORDS SUMMARY | 2025-01-20 08:00 | XMS_ITS | Encounter Summary ---
Author Organization [facility] ystem Address [address] [place] [address] Care Team Providers Care Privacy Officer Name Role Phone Graciela Patdavid Oliva DO Primary Care Provider +1- [phone] Reason for Referral * Diagnostic Medical (Routine) - Closed Specialty Diagnoses / Procedures Referred By Contac t Referred To Contact Radiology Diagnoses Syncope, unspecified syncope type Procedures EEG Neri Light MD [address] [place] [address] Phone: tel: fax: [address] [address] Phone: tel: Referral ID Status Reason Start Date Expiration Date Visits Re quested Visits Authorized [id number] Closed 01/11/2025 04/12/2026 1 1 Reason for Visit * Diagnostic Medical (Routine) - Closed Specialty Diagnoses / Procedures Referred By Contac t Referred To Contact Radiology Diagnoses Syncope, unspecified syncope type Procedures EEG Neri Light MD [address] [place] [address] Phone: tel: fax: [address] [address] Phone: tel: Referral ID Status Reason Start Date Expiration Date Visits Re quested Visits Authorized [id number] Closed 01/11/2025 04/12/2026 1 1 Encounter Details Date Type Department Care Team (Latest Contact Info) Description 01/20/2025 8:00 AM EDT - 01/20/2025 11:59 PM EDT Hospital Encounter [facility] NEUROLOGY DIAGNOSTICS [address] [place] [address] Neri Light MD [address] [facility] [place] [address] Syncope, unspecified syncope type Discharge Disposition: Home [...] or training? Not on file Preferred Language Australian 10/16/2023 PHQ-2 Answer Date Recorded Patient Health [...] Info) Description 02/25/2025 8:00 AM EDT Appointment [facility] NONINVASIVE LAB [address] [place] [address] 3rd [place] [address] 02/28/2025 8:45 AM EDT Office Visit [facility] [address] [place] [address] Neri Light MD [address] [place] [address] 03/24/2025 11:00 AM EDT Office Visit [facility] ENDOCRINOLOGY [address] [phone] Calli Rodriguez PA-C [address] [place] [address] 05/20/2025 11:30 AM EST Office Visit [facility] [address] [address] Pat Owens DO [address] [place] [address] 06/16/2025 12:30 PM EST Office Visit [facility] SLEEP [facility] [address] [place] [phone] Breanne Stone, EMPLOYMENT OFFICE CLERK [address] [facility] [address] [place] [address] 04/28/2026 1:30 PM EST Office Visit [facility] CARDIOLOGY [address] [facility] [address] [place] [phone] Mateo Luque MD [address] [facility] [address] [place], [place] [id number] documented as of this encounter Procedures Procedure Name Priority Date/Time Associated Diagnosis Comments EEG AWAKE OR DROWSY PORTABLE Routine 01/20/2025 9:50 AM EDT Syncope, unspecified syncope type documented in this encounter Results * EEG AWAKE OR DROWSY PORTABLE (01/20/2025 9:50 AM EDT) Impressions NEUROLOGY - 01/20/2025 10:24 AM EDT Normal study This report is transcribed using the [employer] dictation system. Narrative NEUROLOGY - 01/20/2025 10:24 [...] documented as of this encounter Care Teams Privacy Officer Relationship Specialty Start Date End Date Pat Owens DO [address] [place], [place] [phone] PCP - General Family Medicine 10/30/18 documented as of this encounter
--- OUTSIDE RECORDS SUMMARY | 2025-01-21 11:45 | XMS_ITS | Encounter Summary ---
[facility] Address [address] [place] [address] Care Team Providers Care Education Site Manager Name Role Phone Graciela Patdavid Oliva DO Primary Care Provider [phone]- [phone] Reason for Referral * Medical Care (Routine) - Denied Specialty Diagnoses / Procedures Referred By Contac t Referred To Contact Sleep Medicine Diagnoses Syncope, unspecified syncope type Procedures Multiple Sleep Latency Test Without CPAP Neri Light MD [address] [place] [address] Phone: tel: fax: [facility] SLEEP LAB [address] [place] [address] Phone: tel: fax: Referral ID Status Reason Start Date Expiration Date Visits Re quested Visits Authorized Denied 01/21/2025 04/22/2026 1 0 Reason for Visit * Reason Comments Follow-up Needing papers fille d out for work. Before she loses her job Encounter Details Date Type Department Care Team (Late Contact Info) Description 01/21/2025 11:45 AM EDT Office Visit [facility] FAMILY MEDICINE [address] [place] [phone] Neri Light MD [address] [place] [address] Syncope, unspecified syncope type (Primary Dx) Social [...] 10/07 Potentially Unsafe Housing Conditions Not on naday e 10/17/2023 Disabilities Answer Date Recorded Difficulty Concentrating, Remembering or Making Decisions no 10/17/2023 Difficulty Managing Errands Independently no 10/17/2023 Education Answer Date Recorded Help with school or training? Not on file Preferred Language Mozambican 10/16/2023 PHQ-2 Answer Date Recorded Patient Health [...] up on my kitchen floor. She saw freight separator and they suggested some med changes She has been monitoring her BP and pulse levels at home EEG and human resources manager manufacturing was normal She cannot look at lights [...] Info) Description 02/25/2025 8:00 AM EDT Appointment [facility] NONINVASIVE LAB [address] [place] [address] 3rd [place] [address] 02/28/2025 8:45 AM EDT Office Visit [facility] MED[facility] [address] [place] [address] Neri Light MD [address] [place] [address] 03/24/2025 11:00 AM EDT Office Visit [facility] ENDOCRINOLOGY [address] [phone] Calli Rodriguez PA-C [address] [address] 05/20/2025 11:30 AM EST Office Visit [facility] [address] [place] [address] Pat Owens DO [address] [place] [address] 06/16/2025 12:30 PM EST Office Visit [facility] SLEEP MEDICINE [address] [place] [address] Breanne Stone, ERIC [address] [facility] [address] [place], [place] [phone] 04/28/2026 1:30 PM EST Office Visit [facility] CARDIOLOGY [address] [facility] [address] [place] [phone] Mateo Luque MD 1720 [facility] [address] [place], [place] [phone] Scheduled Orders Name Type Priority Associated Diagnoses [...] documented as of this encounter Care Teams Education Site Manager Relationship Specialty Start Date End Date Pat Owens DO [address] [place] [address] PCP - General Family Medicine 10/30/18 documented as of this encounter
--- OUTSIDE RECORDS SUMMARY | 2025-01-27 13:29 | XMS_ITS | Encounter Summary ---
[facility] Address [address] [place] [address] Care Team Providers Care Manager Of Radiology Name Role Phone Pat Owens DO Primary Care Provider +1- [phone] Reason for Referral * Cardiac (Routine) - Closed Specialty Diagnoses / Procedures Referred By Contac t Referred To Contact Radiology Diagnoses Syncope, unspecified syncope type Procedures Tilt table Neri Light MD [address] [place] [address] Phone: tel: fax: [address] [address] Phone: tel: Referral ID Status Reason Start Date Expiration Date Visits Re quested Visits Authorized [id number] Closed 12/17/2024 03/18/2026 1 1 Reason for Visit * Cardiac (Routine) - Closed Specialty Diagnoses / Procedures Referred By Contac t Referred To Contact Radiology Diagnoses Syncope, unspecified syncope type Procedures Tilt table Neri Light MD [address] [place] [address] Phone: tel: fax: [address] [address] Phone: tel: Referral ID Status Reason Start Date Expiration Date Visits Re quested Visits Authorized [id number] Closed 12/17/2024 03/18/2026 1 1 Encounter Details Date Type Department Care Team (Latest Contact Info) Description 01/27/2025 1:29 PM EDT - 01/27/2025 11:59 PM EDT Hospital Encounter [facility] CARDIOVASCULAR LAB [address]rd [place] [address] Neri Light MD 210 [place] [address] Syncope, unspecified syncope type Discharge Disposition: Home [...] or training? Not on file Preferred Language Sammarinese 10/16/2023 PHQ-2 Answer Date Recorded Patient Health [...] Sign Reading Time Taken Comments Blood Pressure 110/80 01/27/2025 3:03 PM EDT Pulse 62 01/27/2025 3:03 PM EDT Temperature - - Respiratory Rate - - Oxygen Saturation - - Inhaled Oxygen Concentration - - Weight 98.9 kg (218 lb 0.6 oz) 01/27/2025 3:03 P M EDT Height 160 cm (5' 2.99 ) 01/27/2025 3:03 PM EDT Body Mass Index 38.63 01/27/2025 3:03 PM EDT documented in this encounter Medications at Time of Discharge [...] tablet 1 02/21/2025 1:31 PM EDT 12/21/2024 venlafaxine XR (EFFEXOR-XR) 75 MG 24 hr capsule Take 1 capsule (75 mg) by mouth Daily for 30 days. 30 capsule 01/27/2025 1:08 PM EDT 01/25/2025 02/22/2025 documented as of this encounter Plan of Treatment Upcoming Encounters Date Type Department Care Team (Late st Contact Info) Description 02/25/2025 8:00 AM EDT Appointment [facility] NONINVASIVE LAB [address] [place] [address] 3rd [place] [address] 02/28/2025 8:45 AM EDT Office Visit [facility] [address] [place] [address] Neri Light MD [address] [facility] [address] 03/24/2025 11:00 AM EDT Office Visit [facility] ENDOCRINOLOGY [address] [phone] Calli Rodriguez PA-C [address] [address] 05/20/2025 11:30 AM EST Office Visit [facility] [address] [place] [address] Pat Owens DO [address] [place] [address] 06/16/2025 12:30 PM EST Office Visit [facility] SLEEP MEDICINE [address] [place] [phone] Breanne Stone APRN [address] [facility] [address] [place], [place] [address] 04/28/2026 1:30 PM EST Office Visit [facility] CARDIOLOGY [address] [facility] [address] [place] [address] Mateo Luque MD 1720 [facility] [address] [place], [place] [phone] documented as of this encounter Procedures Procedure Name Priority Date/Time Associated Diagnosis Comments TILT TABLE Routine 01/27/2025 3:02 PM EDT Syncope, unspecified syncope type documented in this encounter Results * Tilt table (01/27/2025 3:02 PM EDT) Target HR (85%) 161 bpm Max. Pred. HR (100%) 189 bpm Anatomical Region Laterality Modality Other Narrative 01/28/2025 8:28 AM EDT Tilt table test was negative for neurocardiogenic syncope, postural orthostatic tachycardia syndrome and orthostatic syncope. Patient reported dizziness, and periodic nausea throughout the test. She did not report vision changes that head accompanied her previous sycopal episodes. Vital signs remained stable throughout the test, however her HR dropped as low as 46 during recovery. Tilt Table Impression Tilt table test was negative for neurocardiogenic syncope, postural orthostatic tachycardia syndrome and orthostatic syncope. Tilt Table Findings Patient placed per protocol. EKG showed normal sinus. The patient exhibited dizziness and nausea. Tilt Table Baseline Initial EKG showed normal sinus. The patient exhibited no symptoms prior to the test. Tilt Table Recovery Recovery EKG showed sinus bradycardia. The patient exhibited dizziness after the test. Neri Light MD [facility] ORDERABLES Final Result documented in this encounter Visit Diagnoses Diagnosis Syncope, unspecified syncope type documented in this encounter Additional Health Concerns Assessment Noted Time PHQ-2 Depression Total Score: 3 07/11/19 24 12:38 PM EST documented as of this encounter Care Teams Manager Of Radiology Relationship Specialty Start Date End Date Pat Owens DO [address] [place] [address] PCP - General Family Medicine 10/30/18 documented as of this encounter
--- OUTSIDE RECORDS SUMMARY | 2025-02-09 09:00 | XMS_ITS | Encounter Summary ---
Author Organization [facility] yste Address [address] [place] [address] Care Team Providers Care Cooper Apprentice Name Role Phone Pat Owens DO Primary Care Provider [phone]- [phone] Reason for Visit * Reason Comments Hypoglycemia * Consultation (Routine) - Closed Specialty Diagnoses / Procedures Referred By Contac t Referred To Contact Endocrinology Diagnoses Glucose intolerance Procedures TX OFFICE/OUTPATIENT NEW MODERATE MDM 45 MINUTES Neri Light MD [address] [place] [address] Phone: tel: fax: [facility] [address] [place] [phone] Phone: tel: fax: Referral ID Status Reason Start Date Expiration Date V isits Requested Visits Authorized [id number] Closed Specialty Services Required 12/31/2024 04/01/2026 1 1 Encounter Details Date Type Department Care Team (Late st Contact Info) Description 02/09/2025 9:00 AM EDT Office Visit [facility] [address] [address] Calli Rodriguez PA-C [address] [phone] Abnormal glucose (Primary Dx); Hypoglycemia Social History Tobacco Use Types Packs/Day Years Used Date Smoking Tobacco: Former Cigarettes 1 10 0 06/24/2006 - 06/24/2016 Passive Smoke Exposure: Past Smokeless Tobacco: Never Tobacco Cessation:Counseling Given: Not Answered Alcohol Use Standard Drinks/Week Comments No 0 [...] or training? 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 Patient is to start checking blood glucose levels fasting and 2 hours after eating largest meal. She is also to check glucose levels if she is not feeling well. Most likely secondary to history of gastric sleeve. Insulin is increasing before food is digested, causing hypoglycemia Will rule out other potential causes including hypothyroidism, adrenal insufficiency, autoimmune hypoglycemia, and insulinoma with C-peptide, insulin antibodies, cortisol and ACTH. Patient's already had normal liver function and kidney function. She is also had normal insulin level 12/2024 Advised patient to decrease carbohydrate intake and continue to always eat carbohydrates with protein and snack between meals if needed. Eat protein every four hours Avoid simple sugars * Calli Rodriguez PA-C - 02/09/2025 10:35 AM EDTAssociated Problem(s): Abnormal glucose Patient to start checking blood glucose levels fasting and 2 hours after eating and anytime she feels poorly If glucose is found to be greater than 200 at any time or fasting is greater than 126, she has underlying diabetes Consider acarbose for treatment due to her history of gastric sleeve to prevent hypoglycemia * Calli Rodriguez PA-C - 02/09/2025 9:00 AM EDT Images from the original note were not included. Office Note Date: 02/09/2025 Patient Name: Princess Warren : 1995 Chief Complaint Patient presents with Hypoglycemia History of Present Illness: Princess Warren is a 29 y.o. female who presents for high and low blood glucose numbers. She reports she wore a dexcom for around a month and had some numbers as high as 300-400 and lows as low as 42, but some numbers in 50-60 range. NO numbers available for review today. Patient hashad gastric sleeve 2022. Patient reports some episodes of syncope, but doesn't know what blood glucose has been during these times. When glucose is low, she feels better after eating. She has started avoiding foods high in sugar and is trying to eat more protein. Does not have glucometer. Subjective Review of Systems Constitutional: Positive for fatigue. Neurological: Positive for syncope and light-headedness. The following portions of the patient's history were reviewed and updated as appropriate: allergies, current medications, past family history, past medical history, past social history, past surgicalhistory, and problem list. Objective Visit Vitals BP 114/78 (BP Location: Left arm, Patient Position: Sitting) Pulse 85 Ht 160 cm (63 ) Wt 96.6 kg (213 lb) LMP 10/16/2023 SpO2 93% BMI 37.73 kg/m?? Physical Exam: Physical Exam Vitals reviewed. Constitutional: Appearance: Normal appearance. She is obese. HENT: Head: Normocephalic and atraumatic. Nose: Nose normal. Eyes: Conjunctiva/sclera: Conjunctivae normal. Cardiovascular: Rate and Rhythm: Normal rate. Pulmonary: Effort: Pulmonary effort is normal. Skin: General: Skin is warm and dry. Neurological: General: No focal deficit present. Mental Status: She is alert and oriented to person, place, and time. Mental status is at baseline. Psychiatric: Mood and Affect: Mood normal. Behavior: Behavior normal. Thought Content: Thought content normal. Judgment: Judgment normal. Labs: 12/17/2024 at 11 am Free insulin 2.4 Insulin 2.4 HbA1c Hemoglobin A1C Date Value Ref Range Status 12/17/2024 4.9 4.8 - 5.6 % Final Comment: Prediabetes: 5.7 - 6.4 Diabetes: >6.4 Glycemic control for adults with diabetes: <7.0 04/16/2021 4.84 4.80 - 5.60 % Final CMP Lab Results Component Value Date GLUCOSE 77 12/17/2024 BUN 8 12/17/2024 CREATININE 0.82 12/17/2024 NA 142 12/17/2024 K 4.2 12/17/2024 CL 106 12/17/2024 CALCIUM 8.9 12/17/2024 PROTEINTOT 6.1 12/17/2024 ALBUMIN 3.5 (L) 12/17/2024 ALT 15 12/17/2024 AST 17 12/17/2024 ALKPHOS 53 12/17/2024 BILITOT 0.3 12/17/2024 GLOB 2.6 12/17/2024 AGRATIO 1.7 10/18/2023 BCR 10 12/17/2024 ANIONGAP 6.0 10/18/2023 EGFR 98 12/17/2024 Lipid Panel Lab Results Component Value Date HDL Cholesterol 50 09/27/2021 LDL Chol Calc (NIH) 118 (H) 09/27/2021 Triglycerides 85 09/27/2021 TSH Lab Results Component Value Date TSH 3.900 09/27/2021 FREET4 1.23 12/30/2018 Assessment / Plan Assessment & Plan: Diagnoses and all orders for this visit: 1. Abnormal glucose (Primary) Assessment & Plan: Patient to start checking blood glucose levels fasting and 2 hours after eating and anytime she feels poorly If glucose is found to be greater than 200 at any time or fasting is greater than 126, she has underlying diabetes Consider acarbose for treatment due to her history of gastric sleeve to prevent hypoglycemia Orders: - Blood Glucose Monitoring Suppl w/Device kit; Use 1 each 4 (Four) Times a Day. Ok to change to formulary coverage Dispense: 1 each; Refill: 0 - Accu-Chek Softclix Lancets lancets; 1 each Daily. Use as instructed Dispense: 90 each; Refill: 3 - glucose blood (FREESTYLE LITE) test strip; 1 each by Other route 4 (Four) Times a Day. Dispense: 400 each; Refill: 2 - TSH - Cortisol - AM - ACTH - C-Peptide - Basic Metabolic Panel; Future - Insulin Antibody - Basic Metabolic Panel 2. 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 Patient is to start checking blood glucose levels fasting and 2 hours after eating largest meal. She is also to check glucose levels if she is not feeling well. Most likely secondary to history of gastric sleeve. Insulin is increasing before food is digested, causing hypoglycemia Will rule out other potential causes including hypothyroidism, adrenal insufficiency, autoimmune hypoglycemia, and insulinoma with C-peptide, insulin antibodies, cortisol and ACTH. Patient's already had normal liver function and kidney function. She is also had normal insulin level 12/2024 Advised patient to decrease carbohydrate intake and continue to always eat carbohydrates with protein and snack between meals if needed. Eat protein every four hours Avoid simple sugars Orders: - TSH - Cortisol - AM - ACTH - C-Peptide - Basic Metabolic Panel; Future - Insulin Antibody - Basic Metabolic Panel Current Outpatient Medications Medication Instructions Accu-Chek Softclix Lancets lancets 1 each, Daily, Use as instructed ARIPiprazole (ABILIFY) 5 mg, Oral, Daily Blood Glucose Monitoring Suppl w/Device kit 1 each, Not Applicable, 4 Times Daily, Ok to change to formulary coverage doxepin (SINEquan) 10 MG capsule Take 1 capsule by mouth, hour before Bedtime As Needed for Sleep estradiol (ESTRACE) 2 mg, Oral, Daily, CALL FOR APPT. ANNUAL IS DUE glucose blood (FREESTYLE LITE) test strip 1 each, Other, 4 Times Daily hydrOXYzine (ATARAX) 50 MG tablet Take 1 tablet by mouth 2 (Two) Times a Day as needed for panic orsleep ibuprofen (ADVIL,MOTRIN) 600 mg, Oral, Every 6 Hours Scheduled lamoTRIgine (LAMICTAL) 100 mg, Oral, 2 Times Daily LORazepam (ATIVAN) 0.5 mg, Oral, 2 Times Daily PRN Progesterone (PROMETRIUM) 100 mg, Oral, Daily QUEtiapine (SEROquel) 25 MG tablet Take 1 tablet by mouth every night 1 hour before bedtime. SUMAtriptan (Imitrex) 100 MG tablet Take one tablet at onset of headache. May repeat dose one time in 2 hours if headache not relieved. venlafaxine XR (EFFEXOR-XR) 75 MG 24 hr capsule Take 1 capsule (75 mg) by mouth Daily for 30 days. No follow-ups on file. Electronically signed by: Calli Rodriguez PA-C 02/09/2025 documented in this encounter Plan of Treatment Upcoming Encounters Date Type Department Care Team (Late st Contact Info) Description 02/25/2025 8:00 AM EDT Appointment [facility] [address] [place] [phone] 02/28/2025 8:45 AM EDT Office Visit [facility] [address] [place] [address] Neri Light MD [address] [place] [address] 03/24/2025 11:00 AM EDT Office Visit [facility] [address] [facility] [address] [place] [phone] Calli Rodriguez PA-C [address] [facility] [address] [place], [place] [phone] 05/20/2025 11:30 AM EST Office Visit [facility] [address] [place] [address] Pat Owens DO [address] [place], [place] [id number] 06/16/2025 12:30 PM EST Office Visit [facility] [address] [place] [phone] Breanne Stone, TRAY PACKER [address] [place] [address] 04/28/2026 1:30 PM EST Office Visit [facility] [address] [place] [phone] Mateo Luque MD [address] [place] [phone] Pending Results Name Type Priority Associated Diagnoses Date /Time Insulin Antibody Lab Routine Abnormal glucose Hypoglycemia 02/09/2025 9:35 AM EDT documented as of this encounter Procedures Procedure Name Priority Date/Time Associated Diagnosis Comments CORTISOL - AM Routine 02/09/2025 9:35 AM EDT Abnormal glucose Hypoglycemia C-PEPTIDE Routine 02/09/2025 9:35 AM EDT Abnormal glucose Hypoglycemia ACTH Routine 02/09/2025 9:35 AM EDT Abnormal glucose Hypoglycemia TSH Routine 02/09/2025 9:35 AM EDT Abnormal glucose Hypoglycemia BASIC METABOLIC PANEL Routine 02/09/2025 9:35 AM EDT Abnormal glucose Hypoglycemia documented in this encounter Results * (ABNORMAL) Basic Metabolic Panel (02/09/2025 9:35 AM EDT) Glucose 50(L) 65 - 99 mg/dL 02/10/2025 12:07 AM EDT [facility] BUN 22.0(H) 6.0 - 20.0 mg/dL 02/10/2025 12:07 AM EDT [facility] Creatinine 1.02(H) 0.57 - 1.00 mg/dL 02/10/2025 12:07 AM EDT [facility] Sodium 136 136 - 145 mmol/L 02/10/2025 12:07 AM EDT [facility] Potassium 4.2 3.5 - 5.2 mmol/L 02/10/2025 12:07 AM EDT [facility] Chloride 100 98 - 107 mmol/L 02/10/2025 12:07 AM EDT [facility] CO2 21.1(L) 22.0 - 29.0 mmol/L 02/10/2025 12:07 AM EDT [facility] Calcium 9.7 8.6 - 10.5 mg/dL 02/10/2025 12:07 AM EDT [facility] BUN/Creatinine Ratio 21.6 7.0 - 25.0 02/10/2025 12:07 AM EDT [facility] Anion Gap 14.9 5.0 - 15.0 mmol/L 02/10/2025 12:07 AM EDT [facility] eGFR 75.6 >60.0 mL/min/1.7 3 02/10/2025 12:07 AM EDT [facility] Blood Venipuncture / Unknown 02/09/2025 9:35 AM EDT 02/09/2025 9:35 AM EDT Narrative [facility] - 02/10/2025 12:07 AM EDT GFR Categories in Chronic Kidney Disease (CKD) GFR Category GFR (mL/min/1.73) Interpretation G1 90 or greater Normal or high (1) G2 60-89 Mild decrease (1) G3a 45-59 Mild to moderate decrease G3b 30-44 Moderate to severe decrease G4 15-29 Severe decrease G5 14 or less Kidney failure (1)In the absence of evidence of kidney disease, neither GFR category G1 or G2 fulfill the criteria for CKD. eGFR calculation 2020 CKD-EPI creatinine equation, which does not include race as a factor Calli Rodriguez PA-C LAB BLOOD ORDERABLES Final Result [facility]
[address] [place] [address], * C-Peptide (02/09/2025 9:35 AM EDT) C-Peptide 1.3 1.1 - 4.4 ng/mL 02/11/2025 12:10 PM EDT [facility] Comment:C-Peptide reference interval is for fasting patients. Blood Venipuncture / Unknown 02/09/2025 9:35 AM EDT 02/09/2025 9:35 AM EDT [facility] - 02/11/2025 12:10 PM EDT Performed at: [address] [place] [id number] Art Director: Lj Newton PhD, Phone: [phone] Calli LEWIS-Elliot LAB BLOOD ORDERABLES Final Result Performing Organization Address [facility] Co de Phone Number [facility] [address] [place] [id number], * (ABNORMAL) ACTH (02/09/2025 9:35 AM EDT) ACTH 5.1(L) 7.2 - 63.3 pg/mL 02/10/2025 3:10 PM EDT [facility] Comment:ACTH reference inter torrie for samples collected between 7 and 10 AM. Blood Venipuncture / Unknown 02/09/2025 9:35 AM EDT 02/09/2025 9:35 AM EDT [facility] - 02/10/2025 3:10 PM EDT Performed at: [address] [place] [id number] Art Director: Lj Newton PhD, Phone: [phone] Calli Rodriguez PA-C LAB BLOOD ORDERABLES Final Result Performing Organization Address City/[facility]/ZIP Co de Phone Number [facility] [address] [place] [address], * Cortisol - AM (02/09/2025 9:35 AM EDT) Cortisol - AM 10.28 mcg/dL 02/09/2025 5:01 PM EDT [facility] Blood Venipuncture / Unknown 02/09/2025 9:35 AM EDT 02/09/2025 9:35 AM EDT [facility] - 02/09/2025 5:01 PM EDT Cortisol Reference Ranges: Cortisol 6AM - 10AM Range: 6.02-18.40 mcg/dl Cortisol 4PM - 8PM Range: 2.68-10.50 mcg/dl [employer] PA-C LAB BLOOD ORDERABLES Final Result Performing Organization Address City/[facility]/ZIP Co de Phone Number [facility]
[address] [place] [address], * TSH (02/09/2025 9:35 AM EDT) TSH 1.690 0.270 - 4.200 uIU/mL 02/09/2025 11:48 PM EDT [facility] Blood Venipuncture / Unknown 02/09/2025 9:35 AM EDT 02/09/2025 9:35 AM EDT [facility]Reply[facility]ot PA-C LAB BLOOD ORDERABLES Final Result [facility]
[address] [place] [address], documented in this encounter Visit Diagnoses Diagnosis Abnormal glucose- Primary Hypoglycemia Hypoglycemia, unspecified documented in this encounter Additional Health Concerns Assessment Noted Time PHQ-2 Depression Total Score: 3 07/11/19 24 12:38 PM EST documented as of this encounter Care Teams Cooper Apprentice Relationship Specialty Start Date End Date Pat [place] [address] PCP - General Family Medicine 10/30/18 documented as of this encounter
--- NOTE | 2025-02-24 19:51 | HMH.EDGENADL ---
Discharge Plan Disposition Patient Disposition: Home, Self-Care Condition: Good Prescriptions Prescriptions: New levetiracetam [Keppra] 500 mg tablet 500 mg PO BID Qty: 90 0RF No Action aripiprazole 10 mg tablet 10 mg PO DAILY 30 Days Qty: 30 2RF venlafaxine 75 mg capsule,extended release 24hr 75 mg PO DAILY 30 Days Qty: 30 2RF hydroxyzine HCl 50 mg tablet 50 mg PO BID PRN (Reason: panic or sleep) 30 Days Qty: 60 2RF ciprofloxacin-dexamethasone 0.3-0.1 % drops,suspension 4 drp otic (ear) BID 7 Days Qty: 7.5 0RF lamotrigine 100 mg tablet 100 mg PO BID Qty: 60 2RF doxepin 10 mg capsule 10 mg PO HS PRN (Reason: sleep) 30 Days Qty: 30 2RF Rx Instructions: hour before bedtime azelastine 137 mcg (0.1 %) spray,non-aerosol 2 spray intranasal BID Rx Instructions: administer into each nostril azelastine 137 mcg (0.1 %) spray,non-aerosol 2 spray intranasal BID Qty: 30 2RF Rx Instructions: administer into each nostril methylprednisolone [Medrol (Ruslan)] 4 mg tablets,dose pack See Rx Instructions PO PER PKG DIR Qty: 21 0RF Rx Instructions: PO PER PKG DIR for 6 days levocetirizine 5 mg tablet 5 mg PO DAILY Qty: 30 3RF meloxicam 15 mg tablet 15 mg PO DAILY PRN (Reason: pain, mild) Qty: 7 0RF ondansetron 4 mg tablet,disintegrating 4 mg PO Q6H PRN (Reason: nausea and vomiting) Qty: 12 0RF dicyclomine 10 mg capsule 10 mg PO Q8H PRN (Reason: abdominal pain) Qty: 30 0RF Referrals Follow up/Referrals: Neri Light [Primary Care Provider, Medical] - See instructions Activity Restrictions/Add. Instructions Additional Instructions/Restrictions: Take the seizure medications twice daily as prescribed. You will need to follow-up with [facility] neurology. Please call them to schedule an appointment, their number is below. Return to the emergency department if you have an episode that lasts longer than 10 minutes or do not return back to your baseline after 2 hours. You should not swim, drive a car or operate heavy machinery. Avoid drugs and alcohol. [phone] Clinical Impressions Clinical Impression: Seizure-like activity Instructions Patient Instructions: DI for Seizure Disorder -- Adult, DI for Seizure (Not Epilepsy/Seizure Disorder), DI for Seizure Disorder -- Child Print Language Print Language: Malawian Discharge ED Provider: Kourtney Feliciano Adult HPI General Chief complaint: Seizure Stated complaint: seizure Time Seen by Provider: 02/24/25 19:51 History of Present Illness HPI narrative: Patient is an otherwise healthy 29-year-old female with a complex psychiatric medical problem history who presented to the emergency department with concern for seizures. Per EMS, patient had multiple seizures in the last 24 hours the patient was able to respond appropriately during them. Patient was given no medications and route. Patient had a normal blood sugar. After discussion with patient, she states that these episodes have been occurring for about a month. Patient states that they have been occurring more frequently over the last couple weeks. Patient states that she can sometimes feel the episodes occur and she will sometimes be confused afterwards. Patient denies any drug use changes in medications. Patient denies any recent infectious symptoms including fevers cough chills runny nose. Patient denies a headache or vision changes. Patient denies any abdominal pain nausea vomiting or diarrhea. Further history was obtained from the mother and she states that the patient had a few episodes in the last 24 hours but had 2 [id number] prior to arrival. She states her head was shaking as well as her upper extremities but had no lower extremity shaking. Related Data Home Medications ?Medication ?Instructions ?Recorded ?Confirmed azelastine 137 mcg (0.1 %) nasal 2 spray intranasal BID 02/17/25 02/22/25 spray Previous Rx's ?Medication ?Instructions ?Recorded dicyclomine 10 mg capsule 10 mg PO Q8H PRN abdominal pain 10/28/24 #30 caps ondansetron 4 mg disintegrating 4 mg PO Q6H PRN nausea and 10/28/24 tablet vomiting #12 tabs lamotrigine 100 mg tablet 100 mg PO BID #60 tabs 01/13/25 ciprofloxacin 0.3 %-dexamethasone 4 drp otic (ear) BID 7 days #7.5 mL 02/08/25 0.1 % ear drops,suspension doxepin 10 mg capsule 10 mg PO HS PRN sleep 30 days #30 02/08/25 caps azelastine 137 mcg (0.1 %) nasal 2 spray intranasal BID #30 mL 02/17/25 spray levocetirizine 5 mg tablet 5 mg PO DAILY #30 tabs 02/17/25 methylprednisolone 4 mg tablets in See Rx Instructions PO PER PKG DIR 02/17/25 a dose pack (Medrol (Ruslan)) #21 tabs aripiprazole 10 mg tablet 10 mg PO DAILY 30 days #30 tabs 02/22/25 hydroxyzine HCl 50 mg tablet 50 mg PO BID PRN panic or sleep 30 02/22/25 days #60 tabs venlafaxine 75 mg capsule,extended 75 mg PO DAILY 30 days #30 caps 02/22/25 release 24 hr levetiracetam 500 mg tablet 500 mg PO BID #90 tabs 02/24/25 (Keppra) meloxicam 15 mg tablet 15 mg PO DAILY PRN pain, mild #7 02/26/25 tabs Allergies Allergy/AdvReac Type Severity Reaction Status Date / Time No Known Allergies Allergy Verified 02/22/25 11:02 [facility] Disclaimer: The information contained in this section may have been updated after the patient was seen, as this information can be updated by other users. Medical History (Updated 02/26/25 @ 22:00 by Michelle Olsen APRN) Pressure sensation in left ear Eustachian tube dysfunction Tinnitus Atypical migraine Bipolar 1 disorder, mixed Situational anxiety Post traumatic stress disorder (PTSD) SONIA (generalized anxiety disorder) Insomnia disorder Major depressive disorder, recurrent, moderate Auditory hallucinations Surgical History No pertinent past surgical history Family History Family/Other No significant family history Social History Smoking Status: Unknown if ever smoked alcohol intake: never current occupational status: employed Travel in the last 8 weeks?: None Have you lived/traveled outside US in past 30 days?: No Contact w/someone who lives/traveled outside US past 30 days?: No Exposure to someone with infectious disease in past 14 days?: No Do you have a fever (greater than 100.4 F or 38 C)?: No Have you tested positive for COVID-19?: No Exposed to someone with COVID-19 in past 14 days?: No Do you have a sore throat?: No Do you have a cough?: No Do you have any weakness?: No Do you have any diarrhea?: No Are you experiencing any unusual bleeding?: No Do you have any muscle aches/pain?: No Do you have any abdominal pain?: No Are you experiencing loss of taste or smell?: No Other Medical History Have you received the Pneumonia Vaccine: No ROS Obtained: Yes All systems reviewed & no additional complaints except as documented and Yes Systems reviewed as appropriate & no additional complaints except as documented Physical Exam General General appearance: alert and in no apparent distress Head Head exam: atraumatic, normocephalic and normal inspection Eye Eye exam: Present normal appearance, PERRL and EOMI; Absent scleral icterus ENT ENT exam: Present normal exam and normal external ear exam Neck Neck exam: Present normal inspection and full ROM Chest Chest inspection: Present normal inspection and symmetric chest wall rise Respiratory Respiratory exam: Present normal lung sounds bilaterally; Absent respiratory distress or wheezes Cardiovascular Cardiovascular exam: Present regular rate, normal rhythm and normal heart sounds Abdominal Exam Abdominal exam: Present soft and distention; Absent tenderness, guarding or rebound Extremities Exam Extremities exam: Present normal inspection and full ROM Back Exam Back exam: Present normal inspection and full ROM Neurological Exam Neurological exam: Present alert, oriented X3, CN II-XII intact, normal gait, motor sensory deficit and reflexes normal Psychiatric Psychiatric exam: Present normal affect and normal mood Skin Skin exam: Present warm and dry Medical Decision Making Medical Records Medical records reviewed: Yes I reviewed the patient's medical records. Screening: Per USPSTF and CDC recommendations, given the prevalence of disease in our region, it is our hospital?s policy to screen for HIV and viral Hepatitis for all patients aged 18 and over and those with ongoing risk factors. Nic Inquiry Pt receiving controlled substance: No Vital Signs: 02/24/25 19:52 02/24/25 21:01 02/24/25 22:04 Temperature 98.9 F Temperature Source Oral Pulse Rate 66 79 Pulse Rate [Right] 83 Respiratory Rate 16 16 Blood Pressure 110/68 101/69 L Blood Pressure [Right Arm] 108/79 L Blood Pressure Mean [Right Arm] 88 02 Sat by Pulse Oximetry 98 99 96 Oxygen Delivery Method Room Air Room Air Room Air 02/24/25 22:53 Temperature 98.6 F Temperature Source Pulse Rate 76 Pulse Rate [Right] Respiratory Rate 16 Blood Pressure 114/76 Blood Pressure [Right Arm] Blood Pressure Mean [Right Arm] 02 Sat by Pulse Oximetry Oxygen Delivery Method Room Air Lab Data Lab results reviewed: No I reviewed the patient's lab results. Lab Results 02/24/25 20:15: WBC 5.1, RBC 4.16 L, Hgb 12.5, Hct 37.1, MCV 89.2, MCH 30.0, MCHC 33.7, RDW 12.2, Plt Count 248, MPV 9.3, Neut % (Auto) 50.8, Lymph % (Auto) 38.7, [place] % (Auto) 8.7, Eos % (Auto) 1.2, Baso % (Auto) 0.2, Neut # (Auto) 2.6, Lymph # (Auto) 2.0, [place] # (Auto) 0.4, Eos # (Auto) 0.1, Baso # (Auto) 0.0, Sodium 137, Potassium 3.5, Chloride 105, Carbon Dioxide 28, Anion Gap 7.5, BUN 10, Creatinine 0.80, Estimated Creat Clear 146, Estimated GFR 84, Est GFR ( Amer) 101, Glucose 81, Calcium 8.2 L, Total Bilirubin 0.3, AST 33, ALT 22, Alkaline Phosphatase 58, Total Protein 6.5, Albumin 3.8, Globulin 2.7, Albumin/Globulin Ratio 1.4, TSH 2.42, Free T4 0.99, Serum HCG, Qual Negative 02/24/25 20:25: Urine Color Yellow, Urine Appearance Clear, Urine pH 7.0, Ur Specific [place] 1.015, Urine Protein Negative, Urine Glucose (UA) Negative, Urine Ketones Negative, Urine Blood Negative, Urine Nitrate Negative, Urine Bilirubin Negative, Urine Urobilinogen 1.0, Ur Leukocyte Esterase Negative, Urine RBC None, Urine WBC None, Ur Squamous Epith Cells None, Urine Bacteria None, Urine Opiates Screen Negative, Urine Methadone Screen Negative, Ur Barbituates Screen Negative, Ur Phencyclidine Scrn Negative, Ur Amphetamines Screen Negative, U Benzodiazepines Scrn Negative, Urine Cocaine Screen Negative, U Marijuana (THC) Screen Negative 02/24/25 20:15 02/24/25 20:15 Orders (Tests/Meds): ED MEDICATIONS Discontinued Medications Generic Name Dose Route Start Last Admin Trade Name Arabella PRN Reason Stop Dose Admin Acetaminophen 1,000 mg 02/24/25 20:41 02/24/25 20:58 Acetaminophen 500mg Tab PO 02/24/25 20:42 1,000 mg ONCE ONE Administration Levetiracetam 2,000 mg/ Sodium 120 mls @ 240 mls/hr 02/24/25 21:17 02/24/25 22:14 Chloride IV 02/24/25 21:18 Infused ONCE ONE Infusion Ketorolac Tromethamine 30 mg 02/24/25 20:41 02/24/25 20:58 Ketorolac 30mg/Ml Vial IV 02/24/25 20:42 30 mg ONCE ONE Administration ORDERS Category Date Time Status CT head/brain wo con Stat Cat Scan 02/24/25 19:52 Completed CBC w/Auto Diff [Complete Blood Count Auto Diff] Stat Lab 02/24/25 20:15 Completed CMP [Comprehensive Metabolic Panel] Stat Lab 02/24/25 20:15 Completed Drug Screen,Urine Stat Lab 02/24/25 20:25 Completed Free T4 (Free Thyroxine) Stat Lab 02/24/25 20:15 Completed HCG Qualitative, Serum Stat Lab 02/24/25 20:15 Completed TSH [Thyroid Stimulating Hormone] Stat Lab 02/24/25 20:15 Completed UA [Urinalysis and Microscopic] Stat Lab 02/24/25 20:25 Completed Medical Decision Narrative: Patient is a 29-year-old female with a past medical history of psychiatric medical problems who presents to the emergency department with concerns for seizures. On arrival, patient was hemodynamically stable with unremarkable vital signs. Differential includes but not limited to: Intracranial mass, intracranial hemorrhage, intracranial ischemia, electrolyte abnormalities, drug use, seizures, pseudoseizures, amongst others. Patient's labs were reviewed and interpreted by myself: CBC showed no leukocytosis, hemoglobin was stable. CMP was unremarkable. test was negative. Urine drug screen is negative. UA showed no signs of infection. CT head was reviewed and interpreted by myself and showed no acute intracranial mass hemorrhage or ischemia. Although patient's seizures are more consistent with pseudoseizures given that patient is sometimes able to respond during the, patient has not seen a neurologist. Patient had multiple episodes today more concerning for possible complex seizures. I did discuss the case with neurology at [facility] who recommended starting the patient on Keppra and having patient follow-up with neurology at [facility] in clinic. Patient was sent with 500 of Keppra twice daily. Return precautions were discussed and patient was given seizure precautions. Patient was otherwise discharged home in stable condition. Return precautions were discussed. Critical Care Critical Care Time Critical Care Time: No
[2025-02-24 19:52] VITALS: BP 108/79; PULSE 83; RESP 16; TEMP 37.2; O2SAT 98; BMI 35.4
--- NOTE | 2025-02-24 19:52 | CT_ITS ---
PROCEDURE INFORMATION: Exam: CT Head Without Contrast Exam date and time: 02/24/2025 8:55 PM Age: 29 years old Clinical indication: Other: Concern for seizure TECHNIQUE: Imaging protocol: Computed tomography of the head without contrast. Radiation optimization: All CT scans at this facility use at least one of these dose optimization techniques: automated exposure control; mA and/or kV adjustment per patient size (includes targeted exams where dose is matched to clinical indication); or iterative reconstruction. COMPARISON: CT HEAD/BRAIN WO CON 12/19/2024 11:41 PM FINDINGS: Brain: Normal. No hemorrhage. Unremarkable white matter. No mass effect. Cerebral ventricles: No ventriculomegaly. Pituitary gland and sella: Negative Paranasal sinuses: Visualized sinuses are unremarkable. No fluid levels. Mastoid air cells: Visualized mastoid air cells are well aerated. Orbital cavities: Negative. Bones: Unremarkable. No acute fracture. Soft tissues: Unremarkable. Vasculature: Negative. IMPRESSION: 1. No acute intracranial abnormality. 2. MRI may be helpful to look for a cortical basis for seizure activity.
--- OUTSIDE RECORDS SUMMARY | 2025-02-24 19:55 | XMS_ITS | Encounter Summary ---
[facility] Address [address] [place] [address] Care Team Providers Care Land Economist Name Role Phone Pat Owens DO Primary Care Provider Reason for Visit * Reason Onset Date Comments Results 12/28/2024 Encounter Details Date Type Department Care Team (Late st Contact Info) Description 12/28/2024 Telephone [facility] [address] [facility] [place] [address] Pat Owens DO [address] [place] [address] Results Social History Tobacco Use Types Packs/Day Years [...] or training? Not on file Preferred Language Somali 10/16/2023 PHQ-2 Answer Date Recorded Patient Health [...] on file documented as of this encounter Miscellaneous Notes * Telephone Encounter - Neri Light MD - 12/29/2024 2:11 PM EDT Yes,sugars flucuate all over the place. How high is it jumping? * Telephone Encounter - Chelsea Mullen MA - 12/28/2024 11:52 AM EDT Mychart msg: It did start working. But I have noticed most of the time im feeling the numbness, light headednessis when my sugar is jumping up higher than it has been or lower than it has been. Is it normal for your sugar levels to be all over the place when it is first put on? documented in this encounter Plan of Treatment Upcoming Encounters Date Type Department Care Team (Late st Contact Info) Description 02/25/2025 8:00 AM EDT Appointment [facility] [address] [facility] [address] [place] [phone] 02/28/2025 8:45 AM EDT Office Visit [facility] [address] [place] [phone] Neri Light MD [address] [place], [place] [id number] 03/24/2025 11:00 AM EDT Office Visit [facility] [address] [facility] [address] [place] [phone] Calli Rodriguez PA-C [address] [id number] 05/20/2025 11:30 AM EST Office Visit [facility] [address] [place] [address] Pat Owens DO [address] [place] [address] 06/16/2025 12:30 PM EST Office Visit [facility] [address] [place] [phone] Breanne Stone, ERIC [address] [facility] [address] [place] [address] 04/28/2026 1:30 PM EST Office Visit [facility] [address] [facility] [address] [place] [phone] Mateo Luque MD [address] [facility] Bld[address] [facility] [address] [place] [address] documented as of this encounter Visit Diagnoses Not on filedocumented in this encounter Additional Health Concerns Assessment Noted Time PHQ-2 Depression Total Score: 3 07/11/19 24 12:38 PM EST documented as of this encounter Care Teams Land Economist Relationship Specialty Start Date End Date Pat Owens DO [address] [place] [address] PCP - General Family Medicine 10/30/18 documented as of this encounter
--- OUTSIDE RECORDS SUMMARY | 2025-02-24 19:55 | XMS_ITS | Encounter Summary ---
Author Organization [facility] Address [address] [place] [address] Care Team Providers Care Special Police Name Role Phone Pat Owens DO Primary Care Provider [phone] Reason for Referral * Consultation (Routine) - Authorized Specialty Diagnoses / Procedures Referred By Contac t Referred To Contact Sleep Medicine Diagnoses Syncope, unspecified syncope type Procedures MO OFFICE/OUTPATIENT NEW MODERATE MDM 45 MINUTES Neri Light MD [address] [place] [address] Phone: tel: fax: [facility] [address] [place] [phone] Phone: tel: fax: Referral ID Status Reason Start Date Expiration Date V isits Requested Visits Authorized Authorized 02/04/2025 05/06/2026 1 1 Reason for Visit * Reason Onset Date Comments NEW ORDER NEEDED 02/03/2025 Encounter Details Date Type Department Care Team (Late Contact Info) Description 02/03/2025 Telephone [facility] [address] [place] [phone] Pat Owens DO [address] [place] [address] NEW ORDER NEEDED Social History Tobacco Use Types Packs/Day Years [...] or training? Not on file Preferred Language Arabic 10/16/2023 PHQ-2 Answer Date Recorded Patient Health [...] Telephone Encounter - Neri Light MD - 02/04/2025 7:43 AM EDT Sleep med referral made for evaluation * Telephone Encounter - Iveth Mittal RegSched Rep - 02/03/2025 9:21 AM EDT PER SLEEP CLINIC : Dr Light ordered multiple sleep latency testing on this patient. This patient will in all likelihood need a referral to sleep medicine for workup. Syncope is not a covered indication for MSLT. Also, per our AASM guidelines, MSLT has to be preceded by in-lab polysomnography. Before this referral got denied, we wanted to let you know the reason why. Once Dr Light puts in the AMB REFERRAL TO SLEEP MEDICINE, the patient can either be seen at [facility] or in [place]. Once she has that visit, they will document on all the signs and symptoms that are necessary for this type of testing and will proceed accordingly. documented in this encounter Plan of Treatment Upcoming Encounters Date Type Department Care Team (Late st Contact Info) Description 02/25/2025 8:00 AM EDT Appointment [facility] NONINVASIVE LAB [address]rd [place] [address] 02/28/2025 8:45 AM EDT Office Visit [facility] [address] [place] [phone] Neri Light MD [address] [place] [address] 03/24/2025 11:00 AM EDT Office Visit [facility] [address] [phone] ManojnacCalli arita PA-C [address] [address] 05/20/2025 11:30 AM EST Office Visit [facility] [address] [place] [address] Pat Owens DO [address] [place] [address] 06/16/2025 12:30 PM EST Office Visit [facility] [address] [facility] [place] [phone] Breanne Stone, SCHOOL CLEANER [address] [facility] [address] [place], [place] [phone] 04/28/2026 1:30 PM EST Office Visit [facility] [address] [facility] [address] [place] [phone] Mateo Luque MD [address] [facility] Bld[address] E [facility] [address] [place], [place] [id number] documented as of this encounter Visit Diagnoses Diagnosis Syncope, unspecified syncope type- Primary documented in this encounter Additional Health Concerns Assessment Noted Time PHQ-2 Depression Total Score: 3 07/11/19 24 12:38 PM EST documented as of this encounter Care Teams Special Police Relationship Specialty Start Date End Date Pat Owens DO [address] [place] [address] PCP - General Family Medicine 10/30/18 documented as of this encounter
--- OUTSIDE RECORDS SUMMARY | 2025-02-24 19:55 | XMS_ITS | Encounter Summary ---
[facility] Address [address] [place] [address] Care Team Providers Care Wagon Person Name Role Phone GracielaChuck guadalupeayla Hazel ALICEA Primary Care Provider Encounter Details Date Type Department Care Team (Latest Contact Info) Description 12/27/2024 Travel Social History Tobacco Use Types Packs/Day Years [...] or training? Not on file Preferred Language Malay 10/16/2023 PHQ-2 Answer Date Recorded Patient Health [...] on file documented as of this encounter Plan of Treatment Upcoming Encounters Date Type Department Care Team (Late st Contact Info) Description 02/25/2025 8:00 AM EDT Appointment [facility] NONINVASIVE LAB [address] [place] [address] 3rd [place] [address] 02/28/2025 8:45 AM EDT Office Visit [facility] [address] [place] [address] Neri Light MD [address] [place] [address] 03/24/2025 11:00 AM EDT Office Visit [facility] ENDOCRINOLOGY [address] [phone] Calli Rodriguez PA-C [address] [address] 05/20/2025 11:30 AM EST Office Visit [facility] [address] [place] [address] Pat Owens DO [address] [place] [address] 06/16/2025 12:30 PM EST Office Visit [facility] [address] [place] [address] Breanne Stone, CLIENT CARE MANAGER [address] [facility] [place] [address] [place] [address] 04/28/2026 1:30 PM EST Office Visit [facility] [address] [facility] [address] [place] [phone] Mateo Luque MD [address] [facility] [address] [place] [address] [place], [place] [phone] documented as of this encounter Visit Diagnoses Not on filedocumented in this encounter Additional Health Concerns Assessment Noted Time PHQ-2 Depression Total Score: 3 07/11/19 24 12:38 PM EST documented as of this encounter Care Teams Wagon Person Relationship Specialty Start Date End Date Pat Owens DO [address] [place] [address] PCP - General Family Medicine 10/30/18 documented as of this encounter
--- OUTSIDE RECORDS SUMMARY | 2025-02-24 19:55 | XMS_ITS | Encounter Summary ---
[facility] Address [address] [place] [address] Care Team Providers Care Records Analysis Manager Name Role Phone Pat Owens DO Primary Care Provider Reason for Visit * Reason Onset Date Comments ADA PW 02/04/2025 NEEDING PHYS SIG NATURE Encounter Details Date Type Department Care Team (Late st Contact Info) Description 02/04/2025 Telephone [facility] FAMILY MEDICINE [address] [place] [address] Pat Owens DO [address] [place] [address] ADA PW (NEEDING PHYS SIGNATURE ) Social History Tobacco Use Types Packs/Day Years [...] or training? Not on file Preferred Language Russian 10/16/2023 PHQ-2 Answer Date Recorded Patient Health [...] encounter Miscellaneous Notes * Telephone Encounter - Sweetie Naylor RegSched Rep - 02/04/2025 9:59 AM EDT PT CALLED IN TO FUP ON ADA PW THAT HER WORK IS EXPECTING 02/04. SHE WAS ADVISED THAT THE PW IS SITTING ON DR. GOSS'S DESK WITH A NOTE OF THE URGENCY AND IS BEING PERSONALLY MESSAGED BY HIS MA REMINDING HIM OF THIS PW. PT WAS TOLD THAT THERE IS NO GUARANTEE IT WILL BE COMPLETED TODAY, BUT SHE WILL BE NOTIFIED SOONIT IS COMPLETED. CALLBACK #[phone] documented in this encounter Plan of Treatment Upcoming Encounters Date Type Department Care Team (Late st Contact Info) Description 02/25/2025 8:00 AM EDT Appointment [facility] NONINVASIVE [address] 3rd [place] [address] 02/28/2025 8:45 AM EDT Office Visit [facility] FAMILY MEDICINE [address] [place] [phone] Neri Goss MD [address] [place], [place] [id number] 03/24/2025 11:00 AM EDT Office Visit [facility]CRINOLOGY [facility] [facility] [place] [address] Calli Rodriguez PA-C [address] [facility] 50 [place], [place] [phone] 05/20/2025 11:30 AM EST Office Visit [facility] FAMILY MEDICINE [address] [place] [address] Pat Owens DO 210 [place], [place] [phone] 06/16/2025 12:30 PM EST Office Visit [facility] SLEEP MEDICINE [address] [facility] [place] [phone] Breanne Stone, MILLER DISTILLERY 1720 [facility] 503 [place] [address] 04/28/2026 1:30 PM EST Office Visit [facility] CARDIOLOGY 1720 [facility] 400 [place] [phone] Mateo Luque MD 1720 [facility] Bldg E [facility] 400 [place], [place] [phone] documented as of this encounter Visit Diagnoses Not on filedocumented in this encounter Additional Health Concerns Assessment Noted Time PHQ-2 Depression Total Score: 3 07/11/19 24 12:38 PM EST documented as of this encounter Care Teams Records Analysis Manager Relationship Specialty Start Date End Date Pat Owens DO [address] [place] [address] PCP - General Family Medicine 10/30/18 documented as of this encounter
--- OUTSIDE RECORDS SUMMARY | 2025-02-24 19:55 | XMS_ITS | Encounter Summary ---
Author Organization [facility] Address [address] [place] [address] Care Team Providers Care Claim Investigator Name Role Phone Pat Owens DO Primary Care Provider [phone] Reason for Referral * Consultation (Routine) - Closed Specialty Diagnoses / Procedures Referred By Contac t Referred To Contact Endocrinology Diagnoses Glucose intolerance Procedures MT OFFICE/OUTPATIENT NEW MODERATE MDM 45 MINUTES Neri Light MD [address] [place] [address] Phone: tel: fax: [facility] ENDOCRINOLOGY [address] [place] [address] Phone: tel: fax: Referral ID Status Reason Start Date Expiration Date V isits Requested Visits Authorized [id number] Closed Specialty Services Required 12/31/2024 04/01/2026 1 1 Reason for Visit * Reason Onset Date Comments Results 12/29/2024 Encounter Details Date Type Department Care Team (Late Contact Info) Description 12/29/2024 Telephone [facility] FAMILY MEDICINE [address] [place] [phone] Pat Owens DO [address] [place] [address] Results Social History Tobacco Use [...] or training? Not on file Preferred Language Cypriot 10/16/2023 PHQ-2 Answer Date Recorded Patient Health [...] Telephone Encounter - Neri Light MD - 12/31/2024 7:42 AM EDT That is actually pretty normal to have those fluctuations throughout the day. Those numbers 70 and even 200 usually do not cause symptoms. We can work on endocrinology referral to review further and discuss other issues * Telephone Encounter - Chelsea Mullen MA - 12/29/2024 4:35 PM EDT MYCHART MSG: Its jumping to 200s but its jumping up and down so much maybe that is what's causing my dizziness, headaches and numbness is arms/legs. * Telephone Encounter - Chelsea Mullen MA - 12/29/2024 8:30 AM EDT Images from the original note were not included. MYCHART MS12/28/24 8:45 PM Ramón Tran, Just wanted to follow up to make sure you was able to find the message with my la paperwork. I did forget to ask if im returning to work on 01/03 or if doctor bakari wanted to wait until my dexcom come back? Could you also ask him if there was some kind of medicine for dizziness i can take? documented in this encounter Plan of Treatment Upcoming Encounters Date Type Department Care Team (Late st Contact Info) Description 02/25/2025 8:00 AM EDT Appointment [facility] LAB [address] 3rd [place] [address] 02/28/2025 8:45 AM EDT Office Visit [facility] FAMILY MEDICINE [address] [place] [address] Neri Light MD [address] [place] [address] 03/24/2025 11:00 AM EDT Office Visit [facility] ENDOCRINOLOGY 1775 [facility] 50 [place] [address] Calli Rodriguez PA-C 1775 [facility] 50 [place] [address] 05/20/2025 11:30 AM EST Office Visit [facility] FAMILY MEDICINE 210 [place] [address] Pat Owens DO 210 [place] [address] 06/16/2025 12:30 PM EST Office Visit [facility] SLEEP MEDICINE 2400 [place] [phone] Breanne Stone, ACCOUNTS RECEIVABLE ASSISTANT [address] [facility] 503 [place] [address] 04/28/2026 1:30 PM EST Office Visit [facility] CARDIOLOGY [address] 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
--- OUTSIDE RECORDS SUMMARY | 2025-02-24 19:55 | XMS_ITS | Encounter Summary ---
[facility] Address [address] [place] [address] Care Team Providers Care Airplane Patrol Pilot Name Role Phone Pat Owens Primary Care Provider Encounter Details Date Type Department Care Team (Late st Contact Info) Description 12/27/2024 Results Follow-Up [facility] FAMILY MEDICINE 210 [facility] [place] [address] Neri Light MD 210 [place] [address] Social History Tobacco Use Types Packs/Day Years [...] or training? Not on file Preferred Language Nepali 10/16/2023 PHQ-2 Answer Date Recorded Patient Health [...] Info) Description 02/25/2025 8:00 AM EDT Appointment [facility] NONINVASIVE LAB 1720 [facility] 3rd [place] [address] 02/28/2025 8:45 AM EDT Office Visit [facility] FAMILY MEDICINE 210 [place] [address] Neri Light MD 210 [place] [address] 03/24/2025 11:00 AM EDT Office Visit [facility] ENDOCRINOLOGY [address] [phone] Calli Rodriguez PA-C [address] [address] 05/20/2025 11:30 AM EST Office Visit [facility] FAMILY MEDICINE [address] [place] [address] Pat Owens DO [address] [place] [address] 06/16/2025 12:30 PM EST Office Visit [facility] SLEEP MEDICINE 2400 [place] [address] Breanne Stone, GLASS BENDER 1720 [facility] 503 [place], [place] [phone] 04/28/2026 1:30 PM EST Office Visit [facility] CARDIOLOGY 1720 [facility] 400 [place] [address] Mateo Luque MD 1720 [facility] Bldg E [facility] 400 [place], [place] [phone] documented as of this encounter Visit Diagnoses Not on filedocumented in this encounter Additional Health Concerns Assessment Noted Time PHQ-2 Depression Total Score: 3 07/11/19 24 12:38 PM EST documented as of this encounter Care Teams Airplane Patrol Pilot Relationship Specialty Start Date End Date Pat Owens DO [address] [place] [address] PCP - General Family Medicine 10/30/18 documented as of this encounter
--- OUTSIDE RECORDS SUMMARY | 2025-02-24 19:55 | XMS_ITS | Encounter Summary ---
[facility] Address [address] [place] [address] Care Team Providers Care Medicare Biller Name Role Phone GracielaPat guadalupe Primary Care Provider Reason for Visit * Reason Onset Date Comments FMLA CORRECTION 01/10/2025 DATE OF RETURN N EEDS TO BE CHANGED Encounter Details Date Type Department Care Team (Late st Contact Info) Description 01/10/2025 Telephone [facility] FAMILY MEDICINE 210 [place] [address] Neri Light MD 210 [place] [address] FMLA CORRECTION (DATE OF RETURN NEEDS TO BE CHANGED) Social History Tobacco Use Types Packs/Day Years [...] Encounter - Sweetie Naylor RegSched Rep - 01/10/2025 10:13 AM EDT PT CALLED TO SAY THAT THE [facility] PAPERWORK NEEDS TO HAVE AN ACTUAL DATE WRITTEN ON THE FORM, IT CANNOT STATE UNABLE TO DETERMINE AT THIS TIME . PT SAID HER WORK WILL NOT ACCEPT THIS, BUT THAT WITH A DATE, IT CAN BE MODIFIED. THE DATE CAN BE FOR AFTER THE LAST ROUND OF TESTS THAT ARE ON 02/17. PLEASE CALL PT AT [phone] WHEN THE PAPERWORK HAS BEEN CORRECTED. SHE WILL COME NEWS CAMERA OPERATOR THE COPY AND BRING IT TO HER WORK. documented in this encounter Plan of Treatment Upcoming Encounters Date Type Department Care Team (Late st Contact Info) Description 02/25/2025 8:00 AM EDT Appointment [place] [address] [facility] [address]rd [place] [address] 02/28/2025 8:45 AM EDT Office Visit [facility] FAMILY MEDICINE 210 [place] [address] Neri Light MD 210 [place], [place] [phone] 03/24/2025 11:00 AM EDT Office Visit [facility] ENDOCRINOLOGY [address] [phone] Calli Rodriguez PA-C [address] [address] 05/20/2025 11:30 AM EST Office Visit [facility] FAMILY MEDICINE 210 [place] [address] Pat Owens DO 210 [place] [address] 06/16/2025 12:30 PM EST Office Visit [facility] SLEEP MEDICINE 2400 [place] [address] Breanne Stone, SALES AND TRAINING SPECIALIST [address] [address] 04/28/2026 1:30 PM EST Office Visit [facility] CARDIOLOGY 1720 [facility] 400 [place] [address] Mateo Luque MD 1720 [facility] Bldg E [facility] 400 [place] [address] documented as of this encounter Visit Diagnoses Not on filedocumented in this encounter Additional Health Concerns Assessment Noted Time PHQ-2 Depression Total Score: 3 07/11/19 24 12:38 PM EST documented as of this encounter Care Teams Medicare Biller Relationship Specialty Start Date End Date Pat Owens DO [address] [place] [address] PCP - General Family Medicine 10/30/18 documented as of this encounter
--- OUTSIDE RECORDS SUMMARY | 2025-02-24 19:55 | XMS_ITS | Encounter Summary ---
[facility] Address [address] [place] [address] Care Team Providers Care Training And Quality Manager Name Role Phone Pat Owens Primary Care Provider Encounter Details Date Type Department Care Team (Late st Contact Info) Description 12/27/2024 Results Follow-Up [facility] FAMILY MEDICINE 210 [facility] [place] [address] Neri Light MD 210 [place] [address] Social History Tobacco Use Types [...] or training? Not on file Preferred Language Lithuanian 10/16/2023 PHQ-2 Answer Date Recorded Patient Health [...] EDT Appointment [facility] NONINVASIVE LAB 1720 [facility] 3rd [place] [address] 02/28/2025 8:45 AM EDT Office Visit [facility] FAMILY MEDICINE 210 [place] [address] Neri Light MD 210 [place] [address] 03/24/2025 11:00 AM EDT Office Visit [facility] ENDOCRINOLOGY [address] [phone] Calli Rodriguez PA-C [address] [address] 05/20/2025 11:30 AM EST Office Visit [facility] FAMILY MEDICINE [address] [place] [address] Pat Owens DO [address] [place] [address] 06/16/2025 12:30 PM EST Office Visit [facility] SLEEP MEDICINE 2400 [place] [address] Breanne Stone, SLURRY BLENDER 1720 [facility] 503 [place], [place] [address] 04/28/2026 1:30 PM EST Office Visit [facility] CARDIOLOGY 1720 [facility] 400 [place] [address] Mateo Luque MD 1720 [facility] Bldg E [facility] 400 [place], [place] [address] documented as of this encounter Visit Diagnoses Not on filedocumented in this encounter Additional Health Concerns Assessment Noted Time PHQ-2 Depression Total Score: 3 07/11/19 24 12:38 PM EST documented as of this encounter Care Teams Training And Quality Manager Relationship Specialty Start Date End Date Pat Owens DO [address] [place] [address] PCP - General Family Medicine 10/30/18 documented as of this encounter
--- OUTSIDE RECORDS SUMMARY | 2025-02-24 19:55 | XMS_ITS | Encounter Summary ---
[facility] Address [address] [place] [address] Care Team Providers Care Senior Underwriting Assistant Name Role Phone Pat Owens DO Primary Care Provider Encounter Details Date Type Department Care Team (Late st Contact Info) Description 02/02/2025 Telephone [facility] FAMILY MEDICINE [address] [place] [place] [address] Pat Owens DO [address] [place] [address] Social History Tobacco Use Types [...] or training? Not on file Preferred Language Mongolian 10/16/2023 PHQ-2 Answer Date Recorded Patient Health [...] encounter Miscellaneous Notes * Telephone Encounter - Jorge A Gaviria - 02/02/2025 10:17 AM EDT Called princess back and advised the record request that she needed was delivered successfully * Telephone Encounter - Sweetie Naylor RegSched Rep - 02/02/2025 9:40 AM EDT CALLED IN TO SPEAK TO JORGE A, WHO WAS HELPING HER WITH [employer]. PT IS EXPECTING A CALLBACK WHEN JORGE A HAS A MOMENT TO SPEAK WITH HER. documented in this encounter Plan of Treatment Upcoming Encounters Date Type Department Care Team (Late st Contact Info) Description 02/25/2025 8:00 AM EDT Appointment [facility] NONINVASIVE LAB 1720 [facility] 3rd [place] [address] 02/28/2025 8:45 AM EDT [facility] 210 [place] [phone] Neri Light MD 210 [place] [address] 03/24/2025 11:00 AM EDT Office Visit [facility] ENDOCRINOLOGY 1775 [facility] 50 [place] [phone] Calli Rodriguez PA-C 1775 [address] [facility] 50 [place] [address] 05/20/2025 11:30 AM EST Office Visit [facility] FAMILY MEDICINE [address] [place] [address] Pat Owens DO 210 [place] [address] 06/16/2025 12:30 PM EST Office Visit [facility] SLEEP MEDICINE 2400 [place] [phone] Breanne Stone, BUILDING PERFORMANCE CONSULTANT 1720 [facility] 503 [place] [address] 04/28/2026 1:30 PM EST Office Visit [facility] CARDIOLOGY 1720 [facility] 400 [place] [address] Mateo Luque MD 1720 [facility] Bldg E [facility] 400 [place] [address] documented as of this encounter Visit Diagnoses Not on filedocumented in this encounter Additional Health Concerns Assessment Noted Time PHQ-2 Depression Total Score: 3 07/11/19 24 12:38 PM EST documented as of this encounter Care Teams Senior Underwriting Assistant Relationship Specialty Start Date End Date Pat Owens DO [address] [place], [place] [phone] PCP - General Family Medicine 10/30/18 documented as of this encounter
--- OUTSIDE RECORDS SUMMARY | 2025-02-24 19:55 | XMS_ITS | Encounter Summary ---
[facility] Address [address] [place] [address] Care Team Providers Care Final Application Reviewer Name Role Phone GracielaChuck guadalupeayla Hazel ALICEA Primary Care Provider Encounter Details Date Type Department Care Team (Latest Contact Info) Description 01/27/2025 Travel Social History Tobacco Use Types Packs/Day [...] or training? Not on file Preferred Language Italian 10/16/2023 PHQ-2 Answer Date Recorded Patient Health [...] Info) Description 02/25/2025 8:00 AM EDT Appointment [facility] NONINVASIVE LAB [address] [place] [address] 3rd [place] [address] 02/28/2025 8:45 AM EDT Office Visit [facility] FAMILY MEDICINE 210 [place] [address] Neri Light MD 210 [place] [address] 03/24/2025 11:00 AM EDT Office Visit [facility] ENDOCRINOLOGY [address] [phone] Calli Rodriguez PA-C [address] [address] 05/20/2025 11:30 AM EST Office Visit [facility] FAMILY MEDICINE [address] [place] [address] Pat Owens DO 210 [place] [address] 06/16/2025 12:30 PM EST Office Visit [facility] SLEEP MEDICINE [address] [place] [address] Breanne Stone, CORPORATE TRAFFIC MANAGER 1720 [facility] [place] 503 [place] [address] 04/28/2026 1:30 PM EST Office Visit [facility] CARDIOLOGY 1720 [facility] [place] 400 [place] [address] Mateo Luque MD 1720 [facility] Bldg E [place] [address] [place], [place] [phone] documented as of this encounter Visit Diagnoses Not on filedocumented in this encounter Additional Health Concerns Assessment Noted Time PHQ-2 Depression Total Score: 3 07/11/19 24 12:38 PM EST documented as of this encounter Care Teams Final Application Reviewer Relationship Specialty Start Date End Date Pat Owens DO [address] [place] [address] PCP - General Family Medicine 10/30/18 documented as of this encounter
--- OUTSIDE RECORDS SUMMARY | 2025-02-24 19:55 | XMS_ITS | Encounter Summary ---
Author Organization [facility] Address [address] [place] [address] Care Team Providers Care Superintendent Fish Hatchery Name Role Phone GracielaPat guadalupe Primary Care Provider Encounter Details Date Type Department Care Team (Late st Contact Info) Description 12/20/2021 Retail Pharmacy Consultation [facility] [place] [address] [place] [address] Ana Jones [facility] [address] [place] [address] Social History Tobacco Use Types Packs/Day Years Used Date Smoking Tobacco: Former Cigarettes 0.5 10 0 01/2011 - 01/2021 Smokeless Tobacco: Never Alcohol Use Standard Drinks/Week Comments No 0 (1 standard drink = 0.6 oz pur e alcohol) AUDIT-C Answer Date Recorded Q1: How often do you have a drink containing alc ohol? Monthly or less 12/19/2021 Q2: How many drinks containi ng alcohol do you have on a typical day when you are drinking? 1 or 2 12/19/2021 Q3: How often do you have si x or more drinks on one occasion? Never 12/19/2021 PHQ-2 Answer Date Recorded Retired PHQ-9: Brief Depression Severity Measure Score 21 11/12/2021 Education Answer Date Recorded What is the [...] Info) Description 02/25/2025 8:00 AM EDT Appointment [facility] NONINVASIVE LAB 1720 [facility] 3rd [place] [address] 02/28/2025 8:45 AM EDT Office Visit [facility] FAMILY MEDICINE 210 [place] [phone] Neri Light MD 210 [place], [place] [address] 03/24/2025 11:00 AM EDT Office Visit [facility] ENDOCRINOLOGY [address] [phone] Calli Rodriguez PA-C [address] [phone] 05/20/2025 11:30 AM EST Office Visit [facility] MEDICINE 210 [place] [address] Pat Owens DO 210 [place], [place] [phone] 06/16/2025 12:30 PM EST Office Visit [facility] SLEEP MEDICINE 2400 [place] [address] Breanne Stone, DIALYSIS EQUIPMENT TECHNICIAN 1720 [facility] 503 [place] [address] 04/28/2026 1:30 PM EST Office Visit [facility] CARDIOLOGY 1720 [facility] 400 [place] [address] Mateo Luque MD [address] [place] [address] [place] [address] documented as of this encounter Visit Diagnoses Not on filedocumented in this encounter Additional Health Concerns Infection Onset Date Last Indicated Resolved Time COVID Screen (preop/placement) 05/25/2022 05/25/2022 05/25/2022 3:30 PM EST Influenza 05/25/2022 05/25/2022 06/24/2022 9:08 PM EST COVID (confirmed) 05/06/2023 05/06/2023 08/04/2023 9:08 PM EST Assessment Noted Time PHQ-2 Depression Total Score: 6 11/13/19 22 4:11 PM EDT documented as of this encounter Care Teams Superintendent Fish Hatchery Relationship Specialty Start Date End Date Pat Owens DO [address] [place] [address] PCP - General Family Medicine 10/30/18 documented as of this encounter
--- OUTSIDE RECORDS SUMMARY | 2025-02-24 19:55 | XMS_ITS | Encounter Summary ---
Author Organization [facility] Address [address] [place] [address] Care Team Providers Care Territory Sales Executive Name Role Phone Pat Owens DO Primary Care Provider Reason for Visit * Reason Onset Date Comments Results 01/05/2025 Encounter Details Date Type Department Care Team (Late st Contact Info) Description 01/05/2025 Telephone [facility] FAMILY MEDICINE 210 [facility] [place] [address] Pat Owens DO 210 [place] [address] Results Social History Tobacco Use [...] or training? Not on file Preferred Language Kuwaiti 10/16/2023 PHQ-2 Answer Date Recorded Patient Health [...] Telephone Encounter - Neri Light MD - 01/07/2025 8:05 AM EDT done * Telephone Encounter - Chelsea Mullen MA - 01/05/2025 2:30 PM EDT MALA MSG: Hi, I have reached out to the steward/stewardess economy class but I was unable to make an appointment because the intake team has not went over it first. I have not returned to work yet due to all of my symptoms still persisting. My [employer] [facility] paperwork states I was supposed to return to work on 01/03. They are requesting updated paperwork with a new return to work date. They said it does not need a definite date just a updated one as they know they can change. Blanka Sánchez documented in this encounter Plan of Treatment Upcoming Encounters Date Type Department Care Team (Late st Contact Info) Description 02/25/2025 8:00 AM EDT Appointment [facility] NONINVASIVE LAB [address] 3rd [place] [phone] 02/28/2025 8:45 AM EDT Office Visit [facility] FAMILY MEDICINE 210 [place] [address] Neri Light MD 210 [place], [place] [id number] 03/24/2025 11:00 AM EDT Office Visit [facility] ENDOCRINOLOGY 1775 [facility] 50 [place] [phone] Calli Rodriguez PA-C [facility] [place] [address] 05/20/2025 11:30 AM EST Office Visit [facility] 210 [place] [address] Pat Owens DO 210 [place], [place] [phone] 06/16/2025 12:30 PM EST Office Visit [facility] SLEEP MEDICINE [address] [place] [phone] Breanne Stone, MECHANICAL TECH 1720 [facility] 503 [place] [address] 04/28/2026 1:30 PM EST Office Visit [facility] CARDIOLOGY 1720 [facility] 400 [place] [phone] Mateo Luque MD 1720 [facility] Bldg E [facility] 400 [place] [address] documented as of this encounter Visit Diagnoses Not on filedocumented in this encounter Additional Health Concerns Assessment Noted Time PHQ-2 Depression Total Score: 3 07/11/19 24 12:38 PM EST documented as of this encounter Care Teams Territory Sales Executive Relationship Specialty Start Date End Date Pat Owens DO [address] [place] [address] PCP - General Family Medicine 10/30/18 documented as of this encounter
--- OUTSIDE RECORDS SUMMARY | 2025-02-24 19:56 | XMS_ITS | Encounter Summary ---
[facility] Organization [facility] Address [address] [place] [address] Care Team Providers Care Senior Engineering Specialist Name Role Phone GracielaChuck guadalupeayla Hazel ALICEA Primary Care Provider [phone] Encounter Details Date Type Department Care Team (Latest Contact Info) Description 01/14/2025 Travel Social History Tobacco Use Types Packs/Day [...] [facility] NON[facility]VASIVE LAB [address] [place] [address] 3rd [place] [address] 02/28/2025 8:45 AM EDT Office Visit [facility] FAMILY MEDICINE 210 [place] [address] Neri Light MD 210 [place] [address] 03/24/2025 11:00 AM EDT Office Visit [facility] ENDOCRINOLOGY [address] [phone] Calli Rodriguez PA-C [address] [address] 05/20/2025 11:30 AM EST Office Visit [facility] FAMILY MEDICINE [address] [place] [place] [address] Pat Owens DO 210 [place] [address] 06/16/2025 12:30 PM EST Office Visit [facility] SLEEP MEDICINE [address] [place] [address] Breanne Stone, FIELD TRAFFIC INVESTIGATOR 1720 [facility] [place] [address] [place] [address] 04/28/2026 1:30 PM EST Office Visit [facility] CARDIOLOGY 1720 [facility] [place] [address] [place] [phone] Mateo Luque MD 1720 [facility] Bldg E [place] [address] [place], [place] [phone] documented as of this encounter Visit Diagnoses Not on filedocumented in this encounter Additional Health Concerns Assessment Noted Time PHQ-2 Depression Total Score: 3 07/11/19 24 12:38 PM EST documented as of this encounter Care Teams Senior Engineering Specialist Relationship Specialty Start Date End Date Pat Owens DO [address] [place] [address] PCP - General Family Medicine 10/30/18 documented as of this encounter
--- OUTSIDE RECORDS SUMMARY | 2025-02-24 19:56 | XMS_ITS | Encounter Summary ---
[facility] Address [address] [place] [address] Care Team Providers Care Casting Machine Operator Automatic Name Role Phone Pat Owens DO Primary Care Provider Reason for Visit * Reason Onset Date Comments Results 01/19/2025 Encounter Details Date Type Department Care Team (Late st Contact Info) Description 01/19/2025 Telephone [facility] FAMILY MEDICINE 210 [facility] [place] [address] Pat Owens DO 210 [place] [address] Results Social History Tobacco Use [...] or training? Not on file Preferred Language Bahamian 10/16/2023 PHQ-2 Answer Date Recorded Patient Health [...] encounter Miscellaneous Notes * Telephone Encounter - Chelsea Mullen MA - 01/19/2025 10:15 AM EDT Nathan msg: Hi, Just wanted to follow as you asked me to keep track of my pulse: 01/16/2025--blood pressure 104/55 pulse 101 01/17/2025-- blood [...] I woke up on my kitchen floor. documented in this encounter Plan of Treatment Upcoming Encounters Date Type Department Care Team (Late st Contact Info) Description 02/25/2025 8:00 AM EDT Appointment [facility] NONINVASIVE LAB [address]rd FLOOR [place] [phone] 02/28/2025 8:45 AM EDT Office Visit [facility] FAMILY MEDICINE 210 [place] [address] Neri Light MD 210 [place] [address] 03/24/2025 11:00 AM EDT Office Visit [facility] ENDOCRINOLOGY [address] [phone] Calli Rodriguez PA-C [address] [address] 05/20/2025 11:30 AM EST Office Visit [facility] FAMILY MEDICINE 210 [place] [address] Pat Owens DO 210 [place] [address] 06/16/2025 12:30 PM EST Office Visit [facility] SLEEP MEDICINE 2400 [place] [address] Breanne Stone, LINING PARTS SEWER 1720 [facility] 503 [place] [address] 04/28/2026 1:30 PM EST Office Visit [facility] CARDIOLOGY 1720 [facility] 400 [place] [phone] Mateo Luque MD 1720 [facility] Bldg E [facility] 400 [place] [address] documented as of this encounter Visit Diagnoses Not on filedocumented in this encounter Additional Health Concerns Assessment Noted Time PHQ-2 Depression Total Score: 3 07/11/19 24 12:38 PM EST documented as of this encounter Care Teams Casting Machine Operator Automatic Relationship Specialty Start Date End Date Pat Owens DO [address] [place] [address] PCP - General Family Medicine 10/30/18 documented as of this encounter
--- OUTSIDE RECORDS SUMMARY | 2025-02-24 19:56 | XMS_ITS | Encounter Summary ---
[facility] Address [address] [place] [address] Care Team Providers Care Teacher [employer] Name Role Phone GracielaPat guadalupe Hazel ALICEA Primary Care Provider Encounter Details Date Type Department Care Team (Latest Contact Info) Description 02/09/2025 Travel Social History Tobacco Use Types Packs/Day [...] or training? Not on file Preferred Language Chinese 10/16/2023 PHQ-2 Answer Date Recorded Patient Health [...] Info) Description 02/25/2025 8:00 AM EDT Appointment [facility] NONINVASIVE LAB [address] [place] [address] 3rd [place] [address] 02/28/2025 8:45 AM EDT Office Visit [facility] FAMILY MEDICINE 210 [place] [address] Neri Light MD 210 [place] [address] 03/24/2025 11:00 AM EDT Office Visit [facility] ENDOCRINOLOGY [address] [phone] Calli Rodriguez PA-C [address] [address] 05/20/2025 11:30 AM EST Office Visit [facility] FAMILY MEDICINE [address] [place] [address] Pat Owens DO 210 [place] [address] 06/16/2025 12:30 PM EST Office Visit [facility] SLEEP MEDICINE [address] [place] [address] Breanne Stone, PRODUCTION OFFICER 1720 [facility] [place] 503 [place] [address] 04/28/2026 1:30 PM EST Office Visit [facility]ARDIOLOGY 1720 [facility] [place] 400 [place] [address] Mateo Luque MD 1720 [facility] Bldg E [place] 400 [place], [place] [phone] documented as of this encounter Visit Diagnoses Not on filedocumented in this encounter Additional Health Concerns Assessment Noted Time PHQ-2 Depression Total Score: 3 07/11/19 24 12:38 PM EST documented as of this encounter Care Teams Teacher [employer]ery [employer] Relationship Specialty Start Date End Date Pat Owens DO [address] [place] [address] PCP - General Family Medicine 10/30/18 documented as of this encounter
--- OUTSIDE RECORDS SUMMARY | 2025-02-24 19:56 | XMS_ITS | Encounter Summary ---
[facility] Address [address] [place] [address] Care Team Providers Care Community Relations Officer Name Role Phone Pat Owens DO Primary Care Provider Reason for Visit * Reason Onset Date Comments MyChart/ FMLA forms 12/23/2024 Encounter Details Date Type Department Care Team (Late st Contact Info) Description 12/23/2024 Telephone [facility] FAMILY MEDICINE [address] [facility] [place] [address] Pat Owens DO [address] [place] [address] MyChart/ FMLA forms Social History Tobacco Use Types Packs/Day Years [...] or training? Not on file Preferred Language Bhutanese 10/16/2023 PHQ-2 Answer Date Recorded Patient Health [...] encounter Miscellaneous Notes * Telephone Encounter - Lanny Ferrari MA - 12/23/2024 11:48 AM EDT Terese msg: I believe pages 7-12 is the ones that will need to be completed. They are also asking for medical certification or notes from my appointments from Sunday 12/17 and Thursday 12/21. documented in this encounter Plan of Treatment Upcoming Encounters Date Type Department Care Team (Late st Contact Info) Description 02/25/2025 8:00 AM EDT Appointment [facility] [address] 3rd [place] [phone] 02/28/2025 8:45 AM EDT Office Visit [facility] FAMILY MEDICINE [address] [place] [address] Neri Light MD [address] [place], [place] [address] 03/24/2025 11:00 AM EDT Office Visit [facility] ENDOCRINOLOGY 1775 [facility] 50 [place] [phone] Calli Rodriguez PA-C 1775 [facility] 50 [place] [address] 05/20/2025 11:30 AM EST Office Visit [facility] FAMILY MEDICINE 210 [place] [address] Pat Owens DO 210 [place] [address] 06/16/2025 12:30 PM EST Office Visit [facility] SLEEP MEDICINE 2400 [place] [phone] Breanne Stone, STENOGRAPHER SECRETARY 1720 [facility] 503 [place], [place] [address] 04/28/2026 1:30 PM EST Office Visit [facility] CARDIOLOGY 1720 [facility] 400 [place] [address] Mateo Luque MD 1720 [facility] Bldg E [facility] 400 [place] [address] documented as of this encounter Visit Diagnoses Not on filedocumented in this encounter Additional Health Concerns Assessment Noted Time PHQ-2 Depression Total Score: 3 07/11/19 24 12:38 PM EST documented as of this encounter Care Teams Community Relations Officer Relationship Specialty Start Date End Date Pat Owens DO 210 [place] [address] PCP - General Family Medicine 10/30/18 documented as of this encounter
--- OUTSIDE RECORDS SUMMARY | 2025-02-24 19:56 | XMS_ITS | Encounter Summary ---
[facility] Address [address] [place] [address] Care Team Providers Care Tangled Yarn Spool Straightener Name Role Phone GracielaChuck guadalupeayla Hazel ALICEA Primary Care Provider Encounter Details Date Type Department Care Team (Latest Contact Info) Description 01/11/2025 Travel Social History Tobacco Use Types Packs/Day [...] or training? Not on file Preferred Language Sami 10/16/2023 PHQ-2 Answer Date Recorded Patient Health [...] Info) Description 02/25/2025 8:00 AM EDT Appointment [facility] NONINVASIVE LAB [address] [place] [address] 3rd [place] [address] 02/28/2025 8:45 AM EDT Office Visit [facility] FAMILY MEDICINE 210 [place] [address] Neri Light MD 210 [place] [address] 03/24/2025 11:00 AM EDT Office Visit [facility] ENDOCRINOLOGY [address] [phone] Calli Rodriguez PA-C [address] [address] 05/20/2025 11:30 AM EST Office Visit [facility] FAMILY MEDICINE [address] [place] [address] Pat Owens DO 210 [place] [address] 06/16/2025 12:30 PM EST Office Visit [facility] SLEEP MEDICINE [address] [place] [address] Breanne Stone, STRUCTURAL STEEL FITTER 1720 [facility] [place] 503 [place] [address] 04/28/2026 1:30 PM EST Office Visit [facility] CARDIOLOGY 1720 [facility] [place] 400 [place] [address] Mateo Luque MD 1720 [facility] Bldg E [place] [address] [place], [place] [address] documented as of this encounter Visit Diagnoses Not on filedocumented in this encounter Additional Health Concerns Assessment Noted Time PHQ-2 Depression Total Score: 3 07/11/19 24 12:38 PM EST documented as of this encounter Care Teams Tangled Yarn Spool Straightener Relationship Specialty Start Date End Date Pat Owens DO [address] [place] [address] PCP - General Family Medicine 10/30/18 documented as of this encounter
--- OUTSIDE RECORDS SUMMARY | 2025-02-24 19:56 | XMS_ITS | Encounter Summary ---
Author [facility] Address [address] [place] [address] Care Team Providers Care Chain Forming Machine Operator Name Role Phone GracielaPat guadalupe Primary Care Provider Encounter Details Date Type Department Care Team (Late st Contact Info) Description 01/11/2025 Telephone [facility] FAMILY MEDICINE 210 [place] [address] Neri Light MD 210 [place] [address] Social History Tobacco Use Types [...] or training? Not on file Preferred Language Armenian 10/16/2023 PHQ-2 Answer Date Recorded Patient Health [...] Telephone Encounter - Neri Light MD - 01/11/2025 5:16 PM EDT Update and on Chelsea's desk * Telephone Encounter - Bijal Berkowitz RegSched Rep - 01/11/2025 4:43 PM EDT PT IS ASKING IF SHE CAN GET HER FMLA PAPERWORK UPDATED WITH A POTENTIAL RETURN TO WORK DTAE.. EVEN THOUGH SHE HAS OTHER APTS COMING UP TO DETERMINE WHAT'S GOING ON WITH HER documented in this encounter Plan of Treatment Upcoming Encounters Date Type Department Care Team (Late st Contact Info) Description 02/25/2025 8:00 AM EDT Appointment [facility] NONINVASIVE LAB 1720 [facility] 3rd [place] [address] 02/28/2025 8:45 AM EDT Office Visit [facility] FAMILY MEDICINE 210 [place] [phone] Neri Light MD 210 [place] [address] 03/24/2025 11:00 AM EDT Office Visit [facility] ENDOCRINOLOGY [facility] [facility] 50 [place] [address] Calli Rodriguez PA-C [address] [facility] 50 [place] [address] 05/20/2025 11:30 AM EST Office Visit [facility] FAMILY MEDICINE 210 [place] [address] Pat Owens DO 210 [place] [address] 06/16/2025 12:30 PM EST Office Visit [facility] SLEEP MEDICINE 2400 [place] [phone] Breanne Stone, CARRIER OPERATOR 1720 [facility] 503 [place] [address] 04/28/2026 1:30 PM EST Office Visit [facility] CARDIOLOGY 1720 [facility] 400 [place] [address] Mateo Luque MD 1720 [facility] Bldg E [facility] 400 [place], [place] [address] documented as of this encounter Visit Diagnoses Not on filedocumented in this encounter Additional Health Concerns Assessment Noted Time PHQ-2 Depression Total Score: 3 07/11/19 24 12:38 PM EST documented as of this encounter Care Teams Chain Forming Machine Operator Relationship Specialty Start Date End Date Pat Owens DO [address] [place] [address] PCP - General Family Medicine 10/30/18 documented as of this encounter
--- OUTSIDE RECORDS SUMMARY | 2025-02-24 19:56 | XMS_ITS | Encounter Summary ---
[facility] Address [address] [place] [address] Care Team Providers Care Telephone Maintainer Name Role Phone GracielaChuck guadalupeayla Hazel ALICEA Primary Care Provider [phone] Encounter Details Date Type Department Care Team (Latest Contact Info) Description 01/20/2025 Travel Social History Tobacco Use Types Packs/Day [...] or training? Not on file Preferred Language Uzbek 10/16/2023 PHQ-2 Answer Date Recorded Patient Health [...] EDT Appointment [facility] NONINVASIVE LAB [address] [place] [address] 3rd [place] [address] 02/28/2025 8:45 AM EDT Office Visit [facility] FAMILY MEDICINE 210 [place] [address] Neri Light MD 210 [place] [address] 03/24/2025 11:00 AM EDT Office Visit [facility] ENDOCRINOLOGY [address] [phone] Calli Rodriguez PA-C [address] [address] 05/20/2025 11:30 AM EST Office Visit [facility] FAMILY MEDICINE [address] [place] [address] Pat Owens DO 210 [place] [address] 06/16/2025 12:30 PM EST Office Visit [facility] SLEEP MEDICINE [address] [place] [address] Breanne Stone, MEAT WRAPPER 1720 [facility] [place] 503 [place] [address] 04/28/2026 1:30 PM EST Office Visit [facility] CARDIOLOGY 1720 [facility] [place] 400 [place] [address] Mateo Luque MD [address] [facility] Bld[address] E [place] [address] [place], [place] [phone] documented as of this encounter Visit Diagnoses Not on filedocumented in this encounter Additional Health Concerns Assessment Noted Time PHQ-2 Depression Total Score: 3 07/11/19 24 12:38 PM EST documented as of this encounter Care Teams Telephone Maintainer Relationship Specialty Start Date End Date Pat Owens DO [address] [place] [address] PCP - General Family Medicine 10/30/18 documented as of this encounter
--- OUTSIDE RECORDS SUMMARY | 2025-02-24 19:56 | XMS_ITS | Clinical Summary ---
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 12/17/[address] [facility] (AMBULATORY) - 12/24/2024 3:07 AM EDT Performed at: [facility] [employer] [address] [place] [id number] [employer] Engineer: Michael Tejada MD, Phone: [phone] Patient Fasting: Y Neri Light MD LAB BLOOD ORDERABLES Final Resu lt [facility] [employer] [address] (AMBULATORY) [address] [place] [address], [facility] [address] [place] [address], * (ABNORMAL) CBC & Differential (12/17/2024 11:05 AM EDT) [facility] WBC 3.9 3.4 - 10.8 x10E3/uL [facility] RBC 4.60 3.77 - 5.28 x10E6/uL [facility] Hemoglobin 13.4 11.1 - 15.9 g/dL [facility] Hematocrit 44.2 34.0 - 46.6 % [facility] MCV 96 79 - 97 fL [facility] MCH 29.1 26.6 - 33.0 pg [facility] MCHC 30.3(L) 31.5 - 35.7 g/dL [facility] RDW 13.2 11.7 - 15.4 % [facility] Platelets 203 150 - 450 x10E3/uL [facility] Neutrophil Rel % 59 Not Estab. % [facility] Lymphocyte Rel % 33 Not Estab. % [facility] Monocyte Rel % 7 Not Estab. % [facility] Eosinophil Rel % 1 Not Estab. % [facility] Basophil Rel % 0 Not Estab. % [facility] Neutrophils Absolute 2.3 1.4 - 7.0 x10E3/uL [facility] Lymphocytes Absolute 1.3 0.7 - 3.1 x10E3/uL [facility] Monocytes Absolute 0.3 0.1 - 0.9 x10E3/uL [facility] Eosinophils Absolute 0.0 0.0 - 0.4 x10E3/uL [facility] Basophils Absolute 0.0 0.0 - 0.2 x10E3/uL [facility] Immature Granulocyte Rel % 0 Not Estab. % [facility] Immature Grans Absolute 0.0 0.0 - 0.1 x10E3/uL [facility] Blood 12/17/2024 11:0 5 AM EDT 12/17/[address] [facility] [address] (AMBULATORY) - 12/24/2024 3:07 AM EDT Performed at: 01 - [facility] [address] [id number] [employer] Engineer: Lj Newton PhD, Phone: [phone] Patient Fasting: Y us Neri Light MD LAB BLOOD ORDERABLES Final Resu lt [facility] (AMBULATORY) [address] [place] [address], [facility] [address] [place] [address], * Hemoglobin A1c (12/17/2024 11:05 AM EDT) [facility] Hemoglobin A1C 4.9 4.8 - 5.6 % [facility] Comment: Prediabetes: 5.7 - 6.4 Diabetes: >6.4 Glycemic control for adults with diabetes: <7.0 Blood 12/17/2024 11:0 5 AM EDT 12/17/[address] [facility] (AMBULATORY) - 12/24/2024 3:07 AM EDT Performed at: - [facility] [address] [place], [place] [id number] [employer] Engineer: Lj Newton PhD, Phone: [phone] Patient Fasting: Y us Neri Light MD LAB BLOOD ORDERABLES Final [facility]u lt [facility] [address] [place] [address], [facility] [address] [place] [address], * (ABNORMAL) Comprehensive Metabolic Panel (12/17/2024 11:05 AM EDT) [facility] Glucose 77 70 - 99 mg/dL [facility] BUN 8 6 - 20 mg/dL [facility] Creatinine 0.82 0.57 - 1.00 mg/dL [facility] EGFR Result 98 >59 mL/min/1.7 3 [facility] BUN/Creatinine Ratio 10 9 - 23 [facility] Sodium 142 134 - 144 mmol/L [facility] Potassium 4.2 3.5 - 5.2 mmol/L [facility] Chloride 106 96 - 106 mmol/L [facility] Total CO2 25 20 - 29 mmol/L [facility] Calcium 8.9 8.7 - 10.2 mg/dL [facility] Total Protein 6.1 6.0 - 8.5 g/dL [facility] Albumin 3.5(L) 3.9 - 4.9 g/dL [facility] Globulin 2.6 1.5 - 4.5 g/dL [facility] Total Bilirubin 0.3 0.0 - 1.2 mg/dL [facility] Alkaline Phosphatase 53 44 - 121 IU/L [facility] AST (SGOT) 17 0 - 40 IU/L [facility] ALT (SGPT) 15 0 - 32 IU/L [facility] Blood 12/17/2024 11:0 5 AM EDT 12/17/[address] [facility] (AMBULATORY) - 12/24/2024 3:07 AM EDT Performed at: - [facility] [address] [place], [place] [id number] [employer] Engineer: Lj Newton PhD, Phone: [phone] Patient Fasting: Y us Neri Light MD LAB BLOOD ORDERABLES Final Resu lt [facility] (AMBULATORY) [address] [place] [address], [facility] [address] [place] [address], from Last 3 Months Insurance [employer] Member Subscriber Plan / Payer (Ef fective 2022-Present) Name:Princess Warren Relation to Subscriber:Self Name:Princess Warren Payer ID:[id number] (NAIC) Type:Not on file Address: [facility] [id number] [place] [id number] Advance Directives * CPR (Attempt to Resuscitate) (Latest Code Status on File) Date Activated Date Inactivated Comments 10/17/2023 4:33 PM 10/18/2023 1:35 PM Question Answer Comments Code Status (Patient has no pulse and is not breathing): CPR (Attempt to Resuscitate) Medical Interventions (Patie nt has pulse or is breathing): Full Support Level Of Support Discussed With: Patient * CPR (Attempt to Resuscitate) Date Activated Date Inactivated Comments 10/17/2023 4:06 PM 10/17/2023 4:33 PM Question Answer Comments Code Status (Patient has no pulse and is not breathing): CPR (Attempt to Resuscitate) Medical Interventions (Patie nt has pulse or is breathing): Full Support Level Of Support Discussed With: Patient * CPR (Attempt to Resuscitate) Date Activated Date Inactivated Comments 12/19/2021 10:16 AM 12/20/2021 7:07 PM Question Answer Comments Code Status (Patient has no pulse and is not breathing): CPR (Attempt to Resuscitate) Medical Interventions (Patie nt has pulse or is breathing): Full Support Level Of Support Discussed With: Patient Care Teams Sample Tailor Relationship Specialty Start Date End Date Pat Owens DO [address] [place] [address] PCP - General Family Medicine 10/30/18
--- OUTSIDE RECORDS SUMMARY | 2025-02-24 19:56 | XMS_ITS | Encounter Summary ---
Author Organization [facility] [place] Address [address] [place] [address] Care Team Providers Care Manager Ct Name Role Phone Pat Owens Primary Care Provider Encounter Details Date Type Department Care Team (Late st Contact Info) Description 01/20/2025 Results Follow-Up [facility] FAMILY MEDICINE [address] [facility] [place] [address] Neri Light MD [address] [place] [address] Social History Tobacco Use Types [...] or training? Not on file Preferred Language Korean 10/16/2023 PHQ-2 Answer Date Recorded Patient Health [...] [facility] NON[facility] [address] [facility] 3[address] [place] [address] 02/28/2025 8:45 AM EDT Office Visit [facility] FAMILY MEDICINE [address] [place] [phone] Neri Light MD [address] [place] [address] 03/24/2025 11:00 AM EDT Office Visit [facility] ENDOCRINOLOGY [address] [phone] Calli Rodriguez PA-C [address] [address] 05/20/2025 11:30 AM EST Office Visit [facility] FAMILY MEDICINE [address] [place] [address] Pat Owens DO [address] [place] [address] 06/16/2025 12:30 PM EST Office Visit [facility] SLEEP MEDICINE [address] [place] [phone] Breanne Stone, INSTRUCTION LIBRARIAN [address] [facility] [address] [place], [place] [id number] 04/28/2026 1:30 PM EST Office Visit [facility] CARDIOLOGY [address] [facility] [address] [place] [phone] Mateo Luque MD [address] [facility] [address] [facility] [address] [place], [place] [phone] documented as of this encounter Visit Diagnoses Not on filedocumented in this encounter Additional Health Concerns Assessment Noted Time PHQ-2 Depression Total Score: 3 07/11/19 24 12:38 PM EST documented as of this encounter Care Teams Manager Ct Relationship Specialty Start Date End Date Pat Owens DO [address] [place] [address] PCP - General Family Medicine 10/30/18 documented as of this encounter
[2025-02-24 20:23] LABS: Hematocrit 37.1 % (37.0-47.0); Hemoglobin 12.5 g/dL (12.2-16.2); Immature Granulocytes % 0.4 %; Mean Corpuscular HGB Conc 33.7 g/dL (31.8-35.4); Mean Corpuscular Hemoglobin 30.0 pg (27.0-31.2); Mean Corpuscular Volume 89.2 fl (81-99); Nucleated Red Blood Cells % 0 %; Platelet Count 248 K/mm3 (142-424); Red Blood Count 4.16 M/mm3 (4.20-5.40); Red Cell Distribution Width-SD 39.6 fL; White Blood Count 5.1 K/mm3 (4.8-10.8)
[2025-02-24 20:42] LABS: HCG Qualitative, Serum Negative (Negative)
[2025-02-24 20:43] LABS: Alanine Aminotransferase 22 U/L (12-78); Albumin Level 3.8 g/dl (3.5-5.0); Albumin/Globulin Ratio 1.4 (1.1-1.8); Alkaline Phosphatase 58 U/L (38-126); Anion Gap 7.5 mEq/L (5-15); Aspartate Amino Transferase 33 U/L (14-36); Bilirubin,Total 0.3 mg/dl (0.2-1.3); Blood Urea Nitrogen 10 mg/dl (7-17); Calcium 8.2 mg/dl (8.4-10.2); Carbon Dioxide 28 mmol/L (22.0-30.0); Chloride 105 mmol/L (98-107); Creatinine Clearance Estimated 146 mL/min (50-200); Creatinine,Serum 0.80 mg/dl (0.52-1.04); Estimated Glomerular Filt Rate 84 ml/min (>60); GFR (African American) 101 ML/MIN (>60); Globulin 2.7 g/dL (1.3-3.2); Glucose 81 mg/dl (74-100); Potassium 3.5 mmoL/L (3.5-5.1); Sodium 137 mmol/L (136-145); Total Protein,Serum 6.5 g/dl (6.3-8.2)
[2025-02-24 20:44] LABS: Microscopic, Urine URINE MICROSCOPIC (MICROSCOPIC)
[2025-02-24 20:50] LABS: Bilirubin,Urine Negative (Negative); Color,Urine YELLOW (Yellow); Glucose,Urine (UA) Negative (Negative); Ketones,Urine Negative (Negative); Leukocyte Esterase,Urine Negative (Negative); PH,Urine 7.0 (5.0-8.5); Protein,Urine Negative (Negative); Specific Gravity, Urine 1.015 (1.005-1.030); Urobilinogen,Urine 1.0 EU/dl (0.2)
[2025-02-24] MEDS: KETOROLAC 30MG/ML VIAL 30 MG IV (20:58)
[2025-02-24] MEDS: ACETAMINOPHEN 500MG TAB 1000 MG PO (20:58)
[2025-02-24 21:00] LABS: Free T4 (Free Thyroxine) 0.99 ng/dl (0.78-2.19)
[2025-02-24 21:01] VITALS: BP 110/68; PULSE 66; O2SAT 99
[2025-02-24 21:07] LABS: Amphetamine/Metha Screen,Urine Negative ng/ml (<1000); Benzodiazepines Screen,Urine Negative ng/ml (<200)
[2025-02-24 21:08] LABS: Barbiturates Screen,Urine Negative ng/ml (<200)
[2025-02-24 21:10] LABS: Methadone Screen,Urine Negative ng/ml (<300)
[2025-02-24 21:11] LABS: Opiate Screen,Urine Negative ng/ml (<300)
[2025-02-24 21:14] LABS: Thyroid Stimulating Hormone 2.42 uIU/mL (0.465-4.68)
[2025-02-24 21:14] LABS: Phencyclidine Screen,Urine Negative ng/ml (<25)
[2025-02-24] MEDS: levETIRAcetam 2,000 MG in 0.9 % SODIUM CHLORIDE 100 ML 240 MG IV (21:38)
[2025-02-24 22:04] VITALS: BP 101/69; PULSE 79; RESP 16; O2SAT 96
[2025-02-24 22:53] VITALS: BP 114/76; PULSE 76; RESP 16; TEMP 37; O2SAT 96
== END 2025-02-24 22:59 | disposition home or self-care (01) ==
PROVIDERS: Emergency Provider Student in an Organized Health Care Education/Training Program; PCP Family Medicine
DX: R56.9 Unspecified convulsions (principal); F43.10 Post-traumatic stress disorder, unspecified; F31.60 Bipolar disorder, current episode mixed, unspecified; F41.1 Generalized anxiety disorder; R41.0 Disorientation, unspecified
CPT/HCPCS: 70450; 80053; 80307; 81001; 84439; 84443; 84703; 85025; 96374; 96375; 99284; J1885; J1953

== ENCOUNTER 2025-02-26 20:24 | Emergency (ER) | payer BC, SELFPAY ==
--- OUTSIDE RECORDS SUMMARY | 2025-01-11 16:00 | XMS_ITS | Encounter Summary ---
[facility] [address] [place] [address] Care Team Providers Care Health Technician Hearing Name Role Phone Pat Owens Primary Care Provider [phone] Reason for Referral * Diagnostic Imaging (Routine) - Authorized Specialty Diagnoses / Procedures Referred By Contac t Referred To Contact Cardiology Diagnoses Syncope, unspecified syncope type Procedures Adult Transthoracic Echo Complete W/ Cont if Necessary Per Protocol [place] ECHO TTHRC R-T 2D W/WOM-MODE COMPL SPEC&COLR D [place] ECHO TRANSTHORC R-T 2D W/WO M-MODE REC F-UP/LMTD Neri Light MD [address] [place] [address] Phone: tel: fax: [facility] NONINVASIVE LAB [address] [place] [address] 3rd [place] [address] Phone: tel: fax: Referral ID Status Reason Start Date Expiration Date V isits Requested Visits Authorized Authorized 01/11/2025 04/12/2026 1 1 * Diagnostic Medical (Routine) - Closed Specialty Diagnoses / Procedures Referred By Contac t Referred To Contact Radiology Diagnoses Syncope, unspecified syncope type Procedures EEG Neri Light MD [address] [place] [address] Phone: tel: fax: [facility] [address] [place] [address] Phone: tel: Referral ID Status Reason Start Date Expiration Date Visits Re quested Visits Authorized Closed 01/11/2025 04/12/2026 1 1 * Consultation (Routine) - Authorized Specialty Diagnoses / Procedures Referred By Contac t Referred To Contact Cardiology Diagnoses Syncope, unspecified syncope type Procedures [place] OFFICE/OUTPATIENT NEW MODERATE MDM 45 MINUTES Nrei Light MD [address] [facility] [place] [address] Phone: tel: fax: Mateo Luque MD [address] [facility] [address] [facility] [address] [place] [address] Phone: tel: fax: Referral ID Status Reason Start Date Expiration Date Visits Requested Visits Authorized Authorized Specialty Services Required 01/11/2025 04/12/2026 1 1 Reason for Visit * Reason Comments Dizziness Passed out yesterday , feels like she has tunnel vision. Constantly feels like she is going to pass out. States that her sugar can will be low and them jump straight to 300 s Encounter Details Date Type Department Care Team (Late st Contact Info) Description 01/11/2025 4:00 PM EDT Office Visit [facility] [address] [facility] [place] [phone] Neri Light MD [address] [facility] [place] [address] Syncope, unspecified syncope type (Primary Dx) Social History Tobacco Use Types [...] or training? Not on file Preferred Language [place] 10/16/2023 PHQ-2 Answer Date Recorded Patient Health [...] Sign Reading Time Taken Comments Blood Pressure 102/64 01/11/2025 4:15 PM EDT Pulse 86 01/11/2025 4:15 PM EDT Temperature 37.1 C (98.7 F) 01/11/2025 4:15 PM EDT Respiratory Rate 18 01/11/2025 4:15 PM EDT Oxygen Saturation 92% 01/11/2025 4:15 PM EDT Inhaled Oxygen Concentration - - Weight 98.9 kg (218 lb) 01/11/2025 4:15 PM EDT Height 160 cm (5' 3 ) 01/11/2025 4:15 PM EDT Body Mass Index 38.62 01/11/2025 4:15 PM EDT documented in this encounter Progress Notes * Neri Light MD - 01/11/2025 4:00 PM EDT Subjective Princess Warren is a 29 y.o. female. History of Present Illness She was laying down watching TV She felt hot and light headed and off Then her phone alarm went off as her sugar was 206 She had crackers beside her bed and then drank some water from her nightstand Waited about 20-30 minutes and sugar climbed to 235 and she continued to feel weird She was sweating, pulse and BP were fine She had syncopal event, BF was there and put a cold wash cloth on her head She knew who he was immediately Remembers hearing his voice She was out for a couple minutes Event monitor was normal Tilt table scheduled 02/17/25 Endo appointment is Now she feels off Hard to hold head up tingly all over The following portions of the patient's history were reviewed and updated as appropriate: allergies, current medications, past family history, past medical history, past social history, past surgicalhistory, and problem list. Review of Systems Constitutional: Positive for diaphoresis. Respiratory: Negative. Negative for shortness of breath. Cardiovascular: Negative. Negative for chest pain and palpitations. Neurological: Positive for syncope and light-headedness. Objective Physical Exam Vitals and nursing note [...] and all orders for this visit: 1. Syncope, unspecified syncope type (Primary) - Ambulatory Referral to Cardiology for Other (syncope); syncope - EEG; Future - Adult Transthoracic Echo Complete W/ Cont if Necessary Per Protocol; Future I have no idea what is causing her syncope. Work up thus far non revealing including normal insulinlevel, normal glucose monitor, normal cardiac event monitor. I do not think these are glucose related. Yesterdays event while laying down without change in position while laying down and glucose normal in 200 range. Consider POTS vs seizure, vs cardiac Dz NOS. Will work on ECHO, EEG, and have her see her broadcast producer again. Tilt table still pending and was ordered late December documented in this encounter Plan of Treatment Upcoming Encounters Date Type Department Care Team (Late Contact Info) Description 02/28/2025 8:45 AM EDT Office Visit [facility] [address] [place] [address] Neri Light MD [address] [place] [address] 03/24/2025 11:00 AM EDT Office Visit [facility] END[facility] [address] [phone] Calli Rodriguez PA-C [address] [address] 03/31/2025 3:00 PM EDT Appointment [facility] NONINVASIVE LAB [address] [address] [place] [address] 05/20/2025 11:30 AM EST Office Visit [facility] [address] [place] [address] Pat Owens, [address] [place] [address] 06/16/2025 12:30 PM EST Office Visit [facility] [address] [facility] [facility] [place] [address] Breanne Stone APRN [address] [facility] [address] [place] [address] 04/28/2026 1:30 PM EST Office Visit [facility] [address] [facility] [address] [place] [phone] Mateo Luque MD [address] [facility] [address] [place] [address] [place], [place] [id number] Scheduled Orders Name Type Priority Associated Diagnoses Orde r Schedule Adult Transthoracic Echo Complete W/ Cont if Necessary Per Protocol Echocardiography Routine Syncope, unspecified syncope type Expected: 02/11/2025 (Approximate), Expires: 01/11/2026 documented as of this encounter Results * EEG AWAKE OR DROWSY PORTABLE (01/20/2025 9:50 AM EDT) Impressions NEUROLOGY - 01/20/2025 10:24 AM EDT Normal study This report is transcribed using the [employer] [facility] dictation system. Narrative NEUROLOGY - 01/20/2025 10:24 AM EDT Reason for referral: 29 y.o.female with syncope Technical Summary: A 19 channel digital EEG was performed using the international 10-20 placement system, including eye leads and EKG leads. Duration: 23-minute Findings: The patient is awake. A well-regulated 9 Hz posterior rhythm is evident symmetrically over the occipital leads. Intermixed theta and alpha activity are seen anteriorly. Hyperventilation does not change the background. During hyperventilation the patient reported dizziness but there were no EEG changes. Photic stimulation elicits a symmetric driving response. Sleep is seen with slowing of the background, vertex waves and sleep spindles. Video: Available Technical quality: Good Rhythm strip: Regular, 60 beats per SUMMARY: Normal EEG in the awake and asleep states No focal features or epileptiform activity are seen us Neri Light MD NEUROLOGY ORDERABLES Final Resu lt NEUROLOGY documented in this encounter Visit Diagnoses Diagnosis Syncope, unspecified syncope type- Primary Syncope, unspecified syncope type documented in this encounter Additional Health Concerns Assessment Noted Time PHQ-2 Depression Total Score: 3 07/11/19 24 12:38 PM EST documented as of this encounter Care Teams Health Technician Hearing Relationship Specialty Start Date End Date Pat Owens DO [address] [place] [address] PCP - General Family Medicine 10/30/18 documented as of this encounter
--- OUTSIDE RECORDS SUMMARY | 2025-01-14 13:00 | XMS_ITS | Encounter Summary ---
[facility] Organization [facility] Address [address] [place] [address] Care Team Providers Care Consulting Application Engineer Name Role Phone Pat Owens Primary Care Provider Reason for Visit * Reason Comments Right bundle branch block (RBBB) Loss of Consciousness Encounter Details Date Type Department Care Team (Late st Contact Info) Description 01/14/2025 1:00 PM EDT Office Visit [facility] CARDIOLOGY [address] [facility] [address] [place] [address] Mateo Luque MD 1720 [facility] [address] [place] [address] Vasodepressor syncope (Primary Dx) Social History Tobacco [...] or training? Not on file Preferred Language Bolivian 10/16/2023 PHQ-2 Answer Date Recorded Patient Health [...] ECG 12 Lead Post-Procedure Diagnose(s): Vasodepressor syncope [facility] Cardiology Office Progress Note Princess Warren 1995 [address] [place] [address] VISIT DATE: 01/14/25 PCP: Pat Owens DO [address] [place] [facility] [address] IDENTIFICATION: A 29 y.o. female, single, [facility] PROBLEM LIST: Syncope 12/31 MRI brain: negative [...] Day History of Present Illness HPI Princess Parul LernerDarleensejal presents for follow up per Pat Owens [...] call with any questions. Mateo Luque MD, [facility] documented in this encounter Plan of Treatment Upcoming Encounters Date Type Department Care Team (Late st Contact Info) Description 02/28/2025 8:45 AM EDT Office Visit [facility] MEDICINE [address] [facility] [place] [address] Neri Light MD [address] [place] [address] 03/24/2025 11:00 AM EDT Office Visit [facility] ENDOCRINOLOGY [address] [phone] Calli Rodriguez PA-C [address] [address] 03/31/2025 3:00 PM EDT Appointment [facility] NONINVASIVE LAB [address] [place] [address] 05/20/2025 11:30 AM EST Office Visit [facility] FAM[facility] MEDICINE [address] [place] [phone] Pat Owens, DO [address] [place], [place] [phone] 06/16/2025 12:30 PM EST Office Visit [facility] SLEEP MEDICINE [address] [facility] [address] [phone] Breanne Stone, CASHIER CLERK [address] [facility] [address] [place], [place] [address] 04/28/2026 1:30 PM EST Office Visit [facility] CARDIOLOGY [address] [facility] [address] [place] [phone] Mateo Luque MD [address] [facility] [facility] [address] [place], [place] [phone] documented as of this encounter Procedures Procedure [...] Luque MD - 01/14/2025 1:00 PM EDT [facility] Cardiology Office Progress Note Princess Warren 1995 [address] [place] [address] VISIT DATE: 01/14/25 PCP: Pat Owens DO [address] [place] [address] IDENTIFICATION: A 29 y.o. female, single, [facility] PROBLEM LIST: Syncope 12/31 MRI brain: negative [...] call with any questions. Mateo Luque MD, [facility] us Mateo Luque MD ECG ORDERABLES Final Result documented in this encounter Visit Diagnoses Diagnosis Vasodepressor syncope- Primary Syncope and collapse documented in this encounter Additional Health Concerns Assessment Noted Time PHQ-2 Depression Total Score: 3 07/11/19 24 12:38 PM EST documented as of this encounter Care Teams Consulting Application Engineer Relationship Specialty Start Date End Date Pat Owens DO [address] [place] [address] PCP - General Family Medicine 10/30/18 documented as of this encounter
--- OUTSIDE RECORDS SUMMARY | 2025-01-20 08:00 | XMS_ITS | Encounter Summary ---
[facility] Organization [facility] Address [address] [place] [id number] Care Team Providers Care Guitar Instructor Name Role Phone Graciela Patdavid Oliva DO Primary Care Provider [phone] Reason for Referral * Diagnostic Medical (Routine) - Closed Specialty Diagnoses / Procedures Referred By Contac t Referred To Contact Radiology Diagnoses Syncope, unspecified syncope type Procedures EEG Neri Light MD [address] [place] [address] Phone: tel: fax: [address] [address] Phone: tel: Referral ID Status Reason Start Date Expiration Date Visits Re quested Visits Authorized [id number] Closed 01/11/2025 04/12/2026 1 1 Reason for Visit * Diagnostic Medical (Routine) - Closed Specialty Diagnoses / Procedures Referred By Contac t Referred To Contact Radiology Diagnoses Syncope, unspecified syncope type Procedures EEG Neri Light MD [address] [place] [address] Phone: tel: fax: [address] [address] Phone: tel: Referral ID Status Reason Start Date Expiration Date Visits Re quested Visits Authorized [id number] Closed 01/11/2025 04/12/2026 1 1 Encounter Details Date Type Department Care Team (Latest Contact Info) Description 01/20/2025 8:00 AM EDT - 01/20/2025 11:59 PM EDT Hospital Encounter [facility] NEUROLOGY DIAGNOSTICS [address] [place] [address] Neri Light MD 210 [facility] [place] [address] Syncope, unspecified syncope type Discharge Disposition: Home or Self Care Social History Tobacco Use Types Packs/Day Years [...] or training? Not on file Preferred Language Lebanese 10/16/2023 PHQ-2 Answer Date Recorded Patient Health [...] on file documented as of this encounter Medications at Time of Discharge estradiol (Estrace) 1 MG tabletIndication s:Postsurgical menopause Take 2 tablets by mouth Daily. CALL FOR APPT. ANNUAL IS DUE 60 tablet 01/12/2025 11:42 AM EDT 12/24/2024 hydrOXYzine (ATARAX) 50 MG tablet Take 1 tablet by mouth 2 (Two) Times a Day as needed for panic or sleep 60 tablet 2 01/14/2025 12:16 PM EDT 01/13/2025 ibuprofen (ADVIL,MOTRIN) 600 MG tablet Take 1 tablet by mouth Every 6 (Six) Hours. 30 tablet 1 11/01/2023 12:14 PM EDT 10/18/2023 lamoTRIgine (LaMICtal) 100 MG tablet Take 1 tablet by mouth 2 (Two) Times a Day. 60 tablet 2 01/14/2025 12:16 PM EDT 01/13/2025 LORazepam (Ativan) 0.5 MG tabletIndication s:Stress response,Anxiety Take 1 tablet by mouth 2 (Two) Times a Day As Needed for Anxiety. 20 tablet 01/14/2025 12:16 PM EDT 01/05/2025 Progesterone (Prometrium) 100 MG capsuleIndicatio ns:Postsurgical menopause Take 1 capsule by mouth Daily. 30 capsule 11 10/01/2024 11:00 AM EDT 12/02/2023 QUEtiapine (SEROquel) 25 MG tablet Take 1 tablet by mouth every night 1 hour before bedtime. 30 tablet 2 01/14/2025 12:16 PM EDT 01/13/2025 SUMAtriptan (Imitrex) 100 MG tabletIndication s:Atypical migraine Take one tablet at onset of headache. May repeat dose one time in 2 hours if headache not relieved. 9 tablet 1 02/21/2025 1:31 PM EDT 12/21/2024 albuterol sulfate HFA 108 (90 Base) MCG/ACT inhalerIndicatio ns:Bronchitis,Wh eezing Inhale 2 puffs Every 4 (Four) Hours As Needed for Wheezing or Shortness of Air. 8 g 02/22/2021 5 venlafaxine XR (EFFEXOR-XR) 37.5 MG 24 hr capsule Take 1 capsule by mouth Daily for 7 days, THEN 1 capsule 2 (Two) Times a Day 30 capsule 01/14/2025 12:16 PM EDT 01/13/2025 5 documented as of this encounter Plan of Treatment Upcoming Encounters Date Type Department Care Team (Late st Contact Info) Description 02/28/2025 8:45 AM EDT Office Visit [facility] FAMILY MEDIC[facility] [address] [place] [address] Neri Light MD [address] [place] [address] 03/24/2025 11:00 AM EDT Office Visit [facility] ENDOCRINOLOGY [address] [phone] Calli Rodriguez PA-C [address] [address] 03/31/2025 3:00 PM EDT Appointment [facility] NONINVASIVE LAB [address]rd [place] [phone] 05/20/2025 11:30 AM EST Office Visit [facility] [address] [place] [address] Pat Owens DO [address] [place] [address] 06/16/2025 12:30 PM EST Office Visit [facility] SLEEP MEDICINE [address] [place] [phone] Breanne Stone, ERIC [address] [facility] [address] [place], [place] [address] 04/28/2026 1:30 PM EST Office Visit [facility] CARDIOLOGY [address] [facility] [address] [place] [phone] Mateo Luque MD [address] [facility] [address] [place], [place] [phone] documented as of this encounter Procedures Procedure Name Priority Date/Time Associated Diagnosis Comments EEG AWAKE OR DROWSY PORTABLE Routine 01/20/2025 9:50 AM EDT Syncope, unspecified syncope type documented in this encounter Results * EEG AWAKE OR DROWSY PORTABLE (01/20/2025 9:50 AM EDT) Impressions NEUROLOGY - 01/20/2025 10:24 AM EDT Normal study This report is transcribed using the [employer] dictation system. Narrative NEUROLOGY - 01/20/2025 10:24 [...] encounter Visit Diagnoses Diagnosis Syncope, unspecified syncope type documented in this encounter Additional Health Concerns Assessment Noted Time PHQ-2 Depression Total Score: 3 07/11/19 24 12:38 PM EST documented as of this encounter Care Teams Guitar Instructor Relationship Specialty Start Date End Date Pat Owens DO [address] [place] [address] PCP - General Family Medicine 10/30/18 documented as of this encounter
--- OUTSIDE RECORDS SUMMARY | 2025-01-21 11:45 | XMS_ITS | Encounter Summary ---
Author Organization [facility] Address [address] [place] [address] Care Team Providers Care Outdoor Advertising Leasing Agent Name Role Phone Graciela Patdavid Oliva DO Primary Care Provider [phone]- [phone] Reason for Referral * Medical Care (Routine) - Denied Specialty Diagnoses / Procedures Referred By Contac t Referred To Contact Sleep Medicine Diagnoses Syncope, unspecified syncope type Procedures Multiple Sleep Latency Test Without CPAP Neri Light MD [address] [place] [address] Phone: tel: fax: [facility] SLEEP LAB [address] [place] [address] Phone: tel: fax: Referral ID Status Reason Start Date Expiration Date Visits Re quested Visits Authorized Denied 01/21/2025 04/22/2026 1 0 Reason for Visit * Reason Comments Follow-up Needing papers fille d out for work. Before she loses her job Encounter Details Date Type Department Care Team (Late Contact Info) Description 01/21/2025 11:45 AM EDT Office Visit [facility] FAM[facility] MEDICINE [address] [place] [phone] Neri Light MD [address] [place] [address] Syncope, unspecified syncope type (Primary Dx) Social [...] or training? Not on file Preferred Language Guyanese 10/16/2023 PHQ-2 Answer Date Recorded Patient Health [...] Sign Reading Time Taken Comments Blood Pressure 120/80 01/21/2025 11:28 AM EDT Pulse 84 01/21/2025 11:28 AM EDT Temperature 36.3 C (97.4 F) 01/21/2025 11:28 AM EDT Respiratory Rate 18 01/21/2025 11:28 AM EDT Oxygen Saturation - - Inhaled Oxygen Concentration - - Weight 98.9 kg (218 lb) 01/21/2025 11:28 AM EDT Height 160 cm (5' 3 ) 01/21/2025 11:28 AM EDT Body Mass Index 38.62 01/21/2025 11:28 AM EDT documented in this encounter Progress Notes * Neri Light MD - 01/21/2025 11:45 AM EDT Subjective Princess Warren is a 29 y.o. female. History of Present Illness She has continued to have near syncope times 3 this week Had another episode where she did have LOC From patient's recent phone message to us 01/16/2025--blood pressure 104/55 pulse 101 01/17/2025-- blood pressure 102/58 pulse 93 01/18/2025--blood pressure 103/60 pulse 104 This was taken right before I started feeling like I was going to pass out or did pass out. On 01/17/2025 and 01/18/2025 I did pass out. On 01/18/2025 I am not sure how long I was out before I came to as I woke up on my kitchen floor. She saw software sales executive and they suggested some med changes She has been monitoring her BP and pulse levels at home EEG and surveillance system monitor was normal She cannot look at lights as she feels this makes her light headedness worse The light headedness can come back with change in position The following portions of the patient's history were reviewed and updated as appropriate: allergies, current medications, past family history, past medical history, past social history, past surgicalhistory, and problem list. Review of Systems Constitutional: Negative. Respiratory: Negative. Psychiatric/Behavioral: Negative. Objective Physical Exam Vitals [...] 1. Syncope, unspecified syncope type (Primary) - Multiple Sleep Latency Test Without CPAP; Future She has syncope of unknown etiology. No cause through extensive work found to this point. She is going to keep close track of all events over the next month She simply cannot return to work, will keep her off one more month and f/u in one month documented in this encounter Plan of Treatment Upcoming Encounters Date Type Department Care Team (Late st Contact Info) Description 02/28/2025 8:45 AM EDT Office Visit [facility] MED[facility] [address] [place] [address] Neri Light MD [address] [place] [address] 03/24/2025 11:00 AM EDT Office Visit [facility] ENDOCRINOLOGY [address] [phone] Calli Rodriguez PA-C [address] [address] 03/31/2025 3:00 PM EDT Appointment [facility] NONINVASIVE LAB [address] 3rd [place] [phone] 05/20/2025 11:30 AM EST Office Visit [facility] [address] [place] [address] Pat Owens DO [address] [place] [address] 06/16/2025 12:30 PM EST Office Visit [facility] SLEEP MEDICINE [address] [place] [address] Breanne Stone, ERIC [address] [facility] [address] [place] [address] 04/28/2026 1:30 PM EST Office Visit [facility] CARDIOLOGY [address] [facility] [address] [place] [phone] Mateo Luque MD 17[address] [facility] [address] [place], [place] [phone] Scheduled Orders Name Type Priority Associated Diagnoses Orde r Schedule Multiple Sleep Latency Test Without CPAP Sleep Center Routine Syncope, unspecified syncope type Expected: 01/26/2025, Expires: 04/23/2026 documented as of this encounter Visit Diagnoses Diagnosis Syncope, unspecified syncope type- Primary documented in this encounter Additional Health Concerns Assessment Noted Time PHQ-2 Depression Total Score: 3 07/11/19 12:38 PM EST documented as of this encounter Care Teams Outdoor Advertising Leasing Agent Relationship Specialty Start Date End Date Pat Owens DO [address] [place] [address] PCP - General Family Medicine 10/30/18 documented as of this encounter
--- OUTSIDE RECORDS SUMMARY | 2025-01-27 13:29 | XMS_ITS | Encounter Summary ---
Author Organization [facility] Address [address] [place] [id number] Care Team Providers Care Television Mechanic Name Role Phone Graciela Patdavid Oliva DO Primary Care Provider [phone]- [phone] Reason for Referral * Cardiac (Routine) - Closed Specialty Diagnoses / Procedures Referred By Contac t Referred To Contact Radiology Diagnoses Syncope, unspecified syncope type Procedures Tilt table Neri Light MD [address] [place] [address] Phone: tel: fax: [address] [address] Phone: tel: Referral ID Status Reason Start Date Expiration Date Visits Re quested Visits Authorized [id number] Closed 12/17/2024 03/18/2026 1 1 Reason for Visit * Cardiac (Routine) - Closed Specialty Diagnoses / Procedures Referred By Contac t Referred To Contact Radiology Diagnoses Syncope, unspecified syncope type Procedures Tilt table Neri Light MD [address] [place] [address] Phone: tel: fax: [address] [address] Phone: tel: Referral ID Status Reason Start Date Expiration Date Visits Re quested Visits Authorized [id number] Closed 12/17/2024 03/18/2026 1 1 Encounter Details Date Type Department Care Team (Latest Contact Info) Description 01/27/2025 1:29 PM EDT - 01/27/2025 11:59 PM EDT Hospital Encounter [facility] CARDIOVASCULAR LAB [address] [place] [address] Neri Light MD [address] [place] [address] Syncope, unspecified syncope type Discharge Disposition: Home [...] or training? Not on file Preferred Language Azerbaijani 10/16/2023 PHQ-2 Answer Date Recorded Patient Health [...] Description 02/28/2025 8:45 AM EDT Office Visit [facility] MED[facility] [address] [place] [phone] Neri Light MD [address] [place] [address] 03/24/2025 11:00 AM EDT Office Visit [facility] ENDOCRINOLOGY [address] [phone] Calli Rodriguez PA-C [address] [address] 03/31/2025 3:00 PM EDT Appointment [facility]INVASIVE LAB [address] [facility] 3rd [place] [phone] 05/20/2025 11:30 AM EST Office Visit [facility] MED[facility] [address] [place] [phone] Pat Owens DO [address] [place] [address] 06/16/2025 12:30 PM EST Office Visit [facility] SLEEP MEDICINE [address] [place] [phone] Breanne Stone APRN 1720 [facility] [address] [place], [place] [phone] 04/28/2026 1:30 PM EST Office Visit [facility] CARDIOLOGY 1720 [facility] [address] [place] [address] Mateo Luque MD 1720 [facility] [address] [place], [place] [phone] documented as of this encounter Procedures Procedure [...] The patient exhibited dizziness after the test. us Neri Light MD [facility] CARDIAC SERVICES ORDERABLES Final Result documented in this encounter Visit Diagnoses Diagnosis Syncope, unspecified syncope type documented in this encounter Additional Health Concerns Assessment Noted Time PHQ-2 Depression Total Score: 3 07/11/19 24 12:38 PM EST documented as of this encounter Care Teams Television Mechanic Relationship Specialty Start Date End Date Pat Owens DO [address] [place] [address] PCP - General Family Medicine 10/30/18 documented as of this encounter
--- OUTSIDE RECORDS SUMMARY | 2025-02-09 09:00 | XMS_ITS | Encounter Summary ---
[facility] Organization [facility] Address [address] [place] [address] Care Team Providers Care Rope Silica Machine Operator Name Role Phone Pat Owens DO Primary Care Provider [phone]- [phone] Reason for Visit * Reason Comments Hypoglycemia * Consultation (Routine) - Closed Specialty Diagnoses / Procedures Referred By Contac t Referred To Contact Endocrinology Diagnoses Glucose intolerance Procedures ME OFFICE/OUTPATIENT NEW MODERATE MDM 45 MINUTES Neri Light MD [address] [place] [address] Phone: tel: fax: [facility] [address] [place] [phone] Phone: tel: fax: Referral ID Status Reason Start Date Expiration Date V isits Requested Visits Authorized [id number] Closed Specialty Services Required 12/31/2024 04/01/2026 1 1 Encounter Details Date Type Department Care Team (Late st Contact Info) Description 02/09/2025 9:00 AM EDT Office Visit [facility] [address] [address] Calli Rodriguez PA-C [address] [place] [phone] Abnormal glucose (Primary Dx); Hypoglycemia Social History [...] or training? Not on file Preferred Language Panamanian 10/16/2023 PHQ-2 Answer Date Recorded Patient Health [...] Description 02/28/2025 8:45 AM EDT Office Visit [facility] [address] [place] [address] Neri Light MD [address] [place] [address] 03/24/2025 11:00 AM EDT Office Visit [facility] [address] [phone] Calli Rodriguez PA-C [address] [place] [address] 03/31/2025 3:00 PM EDT Appointment [facility] [address] [facility] [address] [place] [phone] 05/20/2025 11:30 AM EST Office Visit [facility] [address] [place] [address] Pat Owens DO [address] [place] [address] 06/16/2025 12:30 PM EST Office Visit [facility] [address] [place] [phone] Breanne Stone, DEVELOPER EVANGELIST [address] [place] [address] 04/28/2026 1:30 PM EST Office Visit [facility] [address] [place] [phone] Mateo Luque MD [address] [place] [address] documented as of this encounter Procedures Procedure Name Priority Date/Time Associated Diagnosis Comments CORTISOL - AM Routine 02/09/2025 9:35 AM EDT Abnormal glucose Hypoglycemia INSULIN ANTIBODY Routine 02/09/2025 9:35 AM EDT Abnormal glucose Hypoglycemia C-PEPTIDE Routine 02/09/2025 9:35 AM EDT Abnormal glucose Hypoglycemia ACTH Routine 02/09/2025 9:35 AM EDT Abnormal glucose Hypoglycemia TSH Routine 02/09/2025 9:35 AM EDT Abnormal glucose Hypoglycemia BASIC METABOLIC PANEL Routine 02/09/2025 9:35 AM EDT Abnormal glucose Hypoglycemia documented in this encounter Results * Insulin Antibody (02/09/2025 9:35 AM EDT) [facility] Insulin AutoAb <5.0 uU/mL 02/25/2025 3:35 AM EDT [facility] Comment: This test is also known as insulin autoantibody or IAA. This test was developed and its performance characteristics determined by [facility]. It has not been cleared or approved by the Food and Drug Administration. Reference Range: <5.0 Negative > or = 5.0 Positive Blood Structure of left upper limb / Unknown Venipuncture / Unknown 02/09/2025 9:35 AM EDT 02/09/2025 9:35 AM EDT Narrative [facility] - 02/25/2025 3:35 AM EDT Performed at: - [employer] [address] [place] [id number] Marine Fisheries Technician: Eneida Hull MD, Phone: [phone] Calli Rodriguez PA-C LAB BLOOD ORDERABLES Final Result [facility] [address] [place] [address], * (ABNORMAL) Basic Metabolic Panel (02/09/2025 9:35 AM EDT) Glucose 50(L) 65 - 99 mg/dL 02/10/2025 12:07 AM [facility] BUN 22.0(H) 6.0 - 20.0 mg/dL 02/10/2025 12:07 AM [facility] Creatinine 1.02(H) 0.57 - 1.00 mg/dL 02/10/2025 12:07 AM [facility] Sodium 136 136 - 145 mmol/L 02/10/2025 12:07 AM [facility] Potassium 4.2 3.5 - 5.2 mmol/L 02/10/2025 12:07 AM [facility] Chloride 100 98 - 107 mmol/L 02/10/2025 12:07 AM [facility] CO2 21.1(L) 22.0 - 29.0 mmol/L 02/10/2025 12:07 AM [facility] Calcium 9.7 8.6 - 10.5 mg/dL 02/10/2025 12:07 AM [facility] BUN/Creatinine Ratio 21.6 7.0 - 25.0 02/10/2025 12:07 AM [facility] Anion Gap 14.9 5.0 - 15.0 mmol/L 02/10/2025 12:07 AM [facility] eGFR 75.6 >60.0 mL/min/1.7 3 02/10/2025 12:07 AM [facility] Blood Venipuncture / Unknown 02/09/2025 9:35 AM EDT 02/09/2025 9:35 AM T [facility] - 02/10/2025 12:07 AM EDT GFR [...] Rodriguez PA-C LAB BLOOD ORDERABLES Final Result [facility]
[address] [place] [address], * C-Peptide (02/09/2025 9:35 AM EDT) Pathologist [facility] C-Peptide 1.3 1.1 - 4.4 ng/mL 02/11/2025 12:10 PM EDT [facility] Comment:C-Peptide reference interval is for fasting patients. Blood Venipuncture / Unknown 02/09/2025 9:35 AM EDT 02/09/2025 9:35 AM EDT [facility] - 02/11/2025 12:10 PM EDT Performed at: [address] [place] [id number] Marine Fisheries Technician: Lj Newton PhD, Phone: [phone] Calli Rodriguez PA-C LAB BLOOD ORDERABLES Final Result [facility] [address] [place] [address], [place] [phone] * (ABNORMAL) ACTH (02/09/2025 9:35 AM EDT) ACTH 5.1(L) 7.2 - 63.3 pg/mL 02/10/2025 3:10 PM EDT [facility] Comment:ACTH reference inter torrie for samples collected between 7 and 10 AM. Blood Venipuncture / Unknown 02/09/2025 9:35 AM EDT 02/09/2025 9:35 AM EDT Narrative [facility] - 02/10/2025 3:10 PM EDT Performed at: - [address] [id number] Marine Fisheries Technician: Lj Newton PhD, Phone: [phone] Calli LEWIS-Elliot LAB BLOOD ORDERABLES Final Result [facility] [address] [place] [address], [place] [phone] * Cortisol - AM (02/09/2025 9:35 AM EDT) Cortisol - AM 10.28 mcg/dL 02/09/2025 5:01 PM EDT [facility] Blood Venipuncture / Unknown 02/09/2025 9:35 AM EDT 02/09/2025 9:35 AM EDT Narrative [facility] - 02/09/2025 5:01 PM EDT Cortisol Reference Ranges: Cortisol 6AM - 10AM Range: 6.02-18.40 mcg/dl Cortisol 4PM - 8PM Range: 2.68-10.50 mcg/dl Calli LEWIS-C LAB BLOOD ORDERABLES Final Result [facility]
[address] [place] [address], [place] [phone] * TSH (02/09/2025 9:35 AM EDT) TSH 1.690 0.270 - 4.200 uIU/mL 02/09/2025 11:48 PM EDT [facility] Blood Venipuncture / Unknown 02/09/2025 9:35 AM EDT 02/09/2025 9:35 AM EDT Calli Rodriguez PA-C LAB BLOOD ORDERABLES Final Result [facility]
[address] [place] [address], documented in this encounter Visit Diagnoses Diagnosis Abnormal glucose- Primary Hypoglycemia Hypoglycemia, unspecified documented in this encounter Additional Health Concerns Assessment Noted Time PHQ-2 Depression Total Score: 3 07/11/19 24 12:38 PM EST documented as of this encounter Care Teams Rope Silica Machine Operator Relationship Specialty Start Date End Date Pat Owens DO [address] [place] [address] PCP - General Family Medicine 10/30/18 documented as of this encounter
--- NOTE | 2025-02-26 20:25 | ECG_ITS ---
APPROVED REPORT Exam: Resting ECG HR:79 bpm ECG Measurements Heart Rate 79 AXES DE 183 P 50 QRSd 130 QRS 64 QT 378 T 17 QTc 412 Conclusion SINUS RHYTHM WITH OCCASIONAL SUPRAVENTRICULAR PREMATURE COMPLEXES RIGHT BUNDLE BRANCH BLOCK [120+ ms QRS DURATION, UPRIGHT V1, 40+ ms S IN I/aVL/V4/V5/V6] ABNORMAL ECG UNCONFIRMED REPORT Normal sinus rhythm. Right bundle branch block. T wave inversions in V2 and V3. No ST elevation or depression Electronically signed by : RODRIGO HUTTON, 02/26/2025 22:25:47
[2025-02-26 20:27] VITALS: BP 122/79; PULSE 76; RESP 18; TEMP 36.7; O2SAT 99; BMI 35.4
--- NOTE | 2025-02-26 20:29 | ED_ITS ---
<Statement entered by Sandro Sheikh MD - 02/26/25 22:27> I was consulted by the ALEXIS, and we discussed the complexity of the problems being addressed. I approve the treatment and management plan for this patient's care in the emergency department, thus performing a substantive portion of the medical decision making. Sandro Sheikh MD Discharge Plan Disposition Patient Disposition: Home, Self-Care Prescriptions Prescriptions: New meloxicam 15 mg tablet 15 mg PO DAILY PRN (Reason: pain, mild) Qty: 7 0RF No Action aripiprazole 10 mg tablet 10 mg PO DAILY 30 Days Qty: 30 2RF venlafaxine 75 mg capsule,extended release 24hr 75 mg PO DAILY 30 Days Qty: 30 2RF hydroxyzine HCl 50 mg tablet 50 mg PO BID PRN (Reason: panic or sleep) 30 Days Qty: 60 2RF ciprofloxacin-dexamethasone 0.3-0.1 % drops,suspension 4 drp otic (ear) BID 7 Days Qty: 7.5 0RF lamotrigine 100 mg tablet 100 mg PO BID Qty: 60 2RF doxepin 10 mg capsule 10 mg PO HS PRN (Reason: sleep) 30 Days Qty: 30 2RF Rx Instructions: hour before bedtime azelastine 137 mcg (0.1 %) spray,non-aerosol 2 spray intranasal BID Rx Instructions: administer into each nostril azelastine 137 mcg (0.1 %) spray,non-aerosol 2 spray intranasal BID Qty: 30 2RF Rx Instructions: administer into each nostril methylprednisolone [Medrol (Ruslan)] 4 mg tablets,dose pack See Rx Instructions PO PER PKG DIR Qty: 21 0RF Rx Instructions: PO PER PKG DIR for 6 days levocetirizine 5 mg tablet 5 mg PO DAILY Qty: 30 3RF ondansetron 4 mg tablet,disintegrating 4 mg PO Q6H PRN (Reason: nausea and vomiting) Qty: 12 0RF dicyclomine 10 mg capsule 10 mg PO Q8H PRN (Reason: abdominal pain) Qty: 30 0RF levetiracetam [Keppra] 500 mg tablet 500 mg PO BID Qty: 90 0RF Clinical Impressions Clinical Impression: Seizure-like activity Instructions Patient Instructions: DI for Seizure Disorder -- Adult, DI for Psychogenic Nonepileptic Seizures, DI for Seizure (Not Epilepsy/Seizure Disorder) Print Language Print Language: Icelandic Discharge ED Provider: Sandro Sheikh General Adult HPI <Michelle Olsen APRN - Last Filed: 02/26/25 22:07> General Chief complaint: Seizure Stated complaint: seizure Time Seen by Provider: 02/26/25 20:49 History of Present Illness HPI narrative: Princess Reyes is a 29-year-old female past medical history significant for PTSD, bipolar, PTSD, anxiety, depression who presents emergency room tonight with complaints of seizure-like activity. Patient states that she was just diagnosed earlier this week with seizures. Was started on Keppra and was sent in a referral with neurology. She tells me that neurology was unable to accept her referral from the ER. She then went to her primary care for them to send a referral and for a neurology visit. Does follow with a mental health provider who she just saw on February 22. They did increase her Abilify for auditory and visual hallucinations as well as felicity. She reports compliance with her Keppra. Patient reports she can feel when the seizure is about to begin and was able to lay down earlier. EMS reports that they witnessed for seizures lasting less than 30 seconds each. She was given a total of 5 mg of Versed. Is alert and oriented x 4, does not appear postictal. Denies any headache, fever, cough, chest pain, shortness of breath, abdominal pain. No focal neurodeficits. Does not take any blood thinners. Please note that the above description of symptoms, and this electronic medical record under categorization of recalled from ER triage doctor by RN are reflective of an initial nursing assessment, however, is not reflective of my full history and physical exam that was personally taken and clarified. Consequentially, this proceeding description of symptoms, which may include the patient's cauterized chief complaint in the EMR, do not reflect my personal clinical impression, and the ultimate description of the history of present illness stated complaints should be deferred to this section of this note. Unless stated otherwise were congruent with the section of the note, additional signs, symptoms, or incongruence can be interpreted as in or accurate with my clinical impression. Related Data Home Medications ?Medication ?Instructions ?Recorded ?Confirmed azelastine 137 mcg (0.1 %) nasal 2 spray intranasal BI D 02/17/25 02/22/25 spray Previous Rx's ?Medication ?Instructions ?Recorded dicyclomine 10 mg capsule 10 mg PO Q8H PRN abdominal p ain 10/28/24 #30 caps ondansetron 4 mg disintegrating 4 mg PO Q6H PRN nausea and 10/28/24 tablet vomiting #12 tabs lamotrigine 100 mg tablet 100 mg PO BID #60 tabs 01/13 ciprofloxacin 0.3 %-dexamethasone 4 drp otic (ear) BID 7 days #7.5 mL 02/08/25 0.1 % ear drops,suspension doxepin 10 mg capsule 10 mg PO HS PRN sleep 30 day s #30 02/08/25 caps azelastine 137 mcg (0.1 %) nasal 2 spray intranasal BI D #30 mL 02/17/25 spray levocetirizine 5 mg tablet 5 mg PO DAILY #30 tabs 02/07 07/03 methylprednisolone 4 mg tablets in See Rx Instructions PO PER PKG DIR 02/17/25 a dose pack (Medrol (Ruslan)) #21 tabs aripiprazole 10 mg tablet 10 mg PO DAILY 30 days #30 t abs 02/22/25 hydroxyzine HCl 50 mg tablet 50 mg PO BID PRN panic or sleep 30 02/22/25 days #60 tabs venlafaxine 75 mg capsule,extended 75 mg PO DAILY 30 d ays #30 caps 02/22/25 release 24 hr levetiracetam 500 mg tablet 500 mg PO BID #90 tabs (Keppra) meloxicam 15 mg tablet 15 mg PO DAILY PRN pain, mil d #7 02/26/25 tabs Allergies Allergy/AdvReac Type Severity Reaction Status Date / Time No Known Allergies Allergy Verified 02/22/25 11:02 [facility] <Michelle Olsen APRN - Last Filed: 02/26/25 22:07> [facility] Disclaimer: The information contained in this section may have been updated after the patient was seen, as this information can be updated by other users. Medical History (Updated 02/26/25 @ 22:00 by Michelle Olsen APRN) Pressure sensation in left ear Eustachian tube dysfunction Tinnitus Atypical migraine Bipolar 1 disorder, mixed Situational anxiety Post traumatic stress disorder (PTSD) SONIA (generalized anxiety disorder) Insomnia disorder Major depressive disorder, recurrent, moderate Auditory hallucinations Surgical History No pertinent past surgical history Family History Family/Other No significant family history Social History Smoking Status: Unknown if ever smoked alcohol intake: never current occupational status: employed Travel in the last 8 weeks?: None Have you lived/traveled outside US in past 30 days?: No Contact w/someone who lives/traveled outside US past 30 days?: No Exposure to someone with infectious disease in past 14 days?: No Do you have a fever (greater than 100.4 F or 38 C)?: No Have you tested positive for COVID-19?: No Exposed to someone with COVID-19 in past 14 days?: No Do you have a sore throat?: No Do you have a cough?: No Do you have any weakness?: No Do you have any diarrhea?: No Are you experiencing any unusual bleeding?: No Do you have any muscle aches/pain?: No Do you have any abdominal pain?: No Are you experiencing loss of taste or smell?: No Other Medical History Have you received the Pneumonia Vaccine: No <Michelle Olsen APRN - Last Filed: 02/26/25 22:07> ROS Obtained: Yes All systems reviewed & no additional complaints except as documented Physical Exam <Michelle Olsen APRN - Last Filed: 02/26/25 22:07> General General appearance: alert and in no apparent distress Head Head exam: atraumatic, normocephalic and normal inspection Eye Eye exam: Present normal appearance, PERRL and EOMI ENT ENT exam: Present normal exam, normal oropharynx, mucous membranes moist, TM's normal bilaterally and normal external ear exam Neck Neck exam: Present normal inspection, full ROM and trachea midline; Absent meningismus or lymphadenopathy Chest Chest inspection: Present normal inspection and symmetric chest wall rise; Absent tenderness Respiratory Respiratory exam: Present normal lung sounds bilaterally; Absent respiratory distress Cardiovascular Cardiovascular exam: Present regular rate and normal rhythm; Absent JVD Abdominal Exam Abdominal exam: Present soft and normal bowel sounds; Absent distention, tenderness or guarding Extremities Exam Extremities exam: Present normal inspection, full ROM and normal capillary refill; Absent calf tenderness Back Exam Back exam: Present normal inspection; Absent tenderness Neurological Exam Neurological exam: Present alert and oriented X3 Psychiatric Psychiatric exam: Present normal affect and normal mood Skin Skin exam: Present warm, dry, intact and normal color Lymphatic Lymphatic Findings: no adenopathy Medical Decision Making <Michelle Raúl, HAM STRIPPER - Last Filed: 02/26/25 22:07> Medical Records Screening: Per USPSTF and CDC recommendations, given the prevalence of disease in our region, it is our hospital?s policy to screen for HIV and viral Hepatitis for all patients aged 18 and over and those with ongoing risk factors. Nic Inquiry Pt receiving controlled substance: No Vital Signs: 02/26/25 20:27 02/26/25 20:30 02/26/25 21:00 Temperature 98.1 F Temperature Source Oral Pulse Rate 73 72 Pulse Rate [Left Radial] 76 Respiratory Rate 18 19 19 Blood Pressure 107/77 L 128/90 Blood Pressure [Right Arm] 122/79 Blood Pressure Mean [Right Arm] 93 02 Sat by Pulse Oximetry 99 99 100 Oxygen Delivery Method Room Air 02/26/25 21:30 Temperature Temperature Source Pulse Rate 67 Pulse Rate [Left Radial] Respiratory Rate 21 Blood Pressure 100/64 L Blood Pressure [Right Arm] Blood Pressure Mean [Right Arm] 02 Sat by Pulse Oximetry 98 Oxygen Delivery Method Lab Data Lab Results 02/26/25 20:25: WBC 4.8, RBC 3.78 L, Hgb 11.4 L, Hct 34.0 L, MCV 89.9, MCH 30.2, MCHC 33.5, RDW 12.3, Plt Count 223, MPV 9.2, Neut % (Auto) 55.9, Lymph % (Auto) 36.0, [place] % (Auto) 6.7, Eos % (Auto) 0.8, Baso % (Auto) 0.2, Neut # (Auto) 2.7, Lymph # (Auto) 1.7, [place] # (Auto) 0.3, Eos # (Auto) 0.0, Baso # (Auto) 0.0, Sodium 138, Potassium 3.9, Chloride 105, Carbon Dioxide 30, Anion Gap 6.9, BUN 14 D, Creatinine 0.90, Estimated Creat Clear 130, Estimated GFR 73, Est GFR ( Amer) 88, Glucose 84, Lactate 0.9, Calcium 8.5, Total Bilirubin 0.3, AST 27, ALT 17, Alkaline Phosphatase 57, Total Creatine Kinase 166 H, Total Protein 6.2 L, Albumin 3.6, Globulin 2.6, Albumin/Globulin Ratio 1.4 02/26/25 21:23: Urine Color Yellow, Urine Appearance Clear, Urine pH 6.0, Ur Specific [place] 1.025, Urine Protein Negative, Urine Glucose (UA) Negative, Urine Ketones Negative, Urine Blood Negative, Urine Nitrate Negative, Urine Bilirubin Negative, Urine Urobilinogen 1.0, Ur Leukocyte Esterase Negative, Urine RBC None, Urine WBC None, Ur Squamous Epith Cells None, Urine Bacteria None 02/26/25 21:25: Urine HCG, Qual Negative 02/26/25 20:02/26/25 20: Orders (Tests/Meds): ORDERS Category Date Time Status CBC w/Auto Diff [Complete Blood Count Auto Diff] Stat Lab 02/26/25 20: Completed CK [Creatine Kinase] Stat Lab 02/26/25 20: Completed CMP [Comprehensive Metabolic Panel] Stat Lab 02/26/25 20:25 Completed Lactic Acid Stat Lab 02/26/25 20:25 Completed UA [Urinalysis and Microscopic] Stat Lab 02/26/25 21:23 Completed Urine , HCG Qual. Stat Lab 02/26/25 21:25 Completed Medical Decision Narrative: In summary patient is an 29-year-old female who presents emergency department for evaluation of seizure-like activity. Patient was just recently diagnosed with seizures at this facility. With send referral to neurology. Unfortunately, neurology states he can accept the referral from the ED. Patient reports that she did go to her primary care physician who resent a referral. Has not been able to see neurology. EMS reports 4 seizures lasting less than 30 seconds each. They reports she had mild clonic activity of the body. EMS states that she was immediately lucid after the seizure stopped. She got a total of 5 mg of Versed with EMS. Patient was able to feel when the seizure was coming on and was able to lay down. Did not hit her head. No lateral tongue bite. No known sick contacts. Denies any headache, cough, fever. Patient is hemodynamically stable upon arrival, afebrile. Unremarkable nonfocal physical exam, moves all extremities symmetrically, alert and oriented x 4. Differential diagnosis includes seizure, PNES, CVA. Initial workup will be conducted with hematologic labs and EKG. I did consider ordering a CT of the head but patient just had a CT of the head 2 days ago which was normal. Initial interventions include seizure precautions: Due to being evaluated in the emergency department for seizure-like activity today, you must not driving immediately. Per [place] law you must be seizure-free for at least 90 days. Please follow-up with your family doctor or neurologist prior then to be cleared for driving. Do not swim alone or go swimming with no magnetic observer, operate heavy machinery, or lock the bathroom while bathing. Do not undertake activities such as water sports, climbing, or where there is injury if you were to fall. Do not bathe children by herself. Initial workup reviewed by me showed an H&H a bit low at 11 and 34, no bleeding present. Urinalysis negative for acute cystitis. Chemistry panel showed a total CK of 166. EKG showed a right bundle branch block, T wave inversions in leads V2 and V3, no ST elevation or depression, similar to prior EKG. Upon repeat evaluation has not had any seizure-like activity since being here in the ER, states that she feels okay and is ready to go home. I was able to review prior notes and a workup from [facility]. Patient had a 1 hour EEG done which did not show any epileptic activity, she was diagnosed with PNES, mom was able to confirm that she was told that she had nonepileptic seizures. She has a pretty extensive psychiatric history, just saw her mental health provider a few days ago, they did have to increase her Abilify as she was having some visual and auditory hallucinations. She should continue to take her Keppra as prescribed. She should not drive for at least 90 days and not until she is cleared by neurology or her primary care provider. Patient has also had an MRI which was negative, has worn a Holter monitor which was negative for any life- threatening arrhythmias. Has seen endocrinology in had an extensive workup with a Dexcom to follow her blood sugars. She does have a follow-up with her primary care provider Friday morning according to her mother. [place] care provider to reach out for a neurology referral as our referral was unable to be excepted by the neurology provider. Given this appropriate for discharge at this time and will be discharged with a prescription for meloxicam for her arthralgias and myalgias. Return precautions were given to mom and patient, both verbalized understanding. <Sandro Sheikh MD - Last Filed: 02/26/25 21:19> Vital Signs: 02/26/25 20:27 02/26/25 20:30 02/26/25 21:00 Temperature 98.1 F Temperature Source Oral Pulse Rate 73 72 Pulse Rate [Left Radial] 76 Respiratory Rate 18 19 19 Blood Pressure 107/77 L 128/90 Blood Pressure [Right Arm] 122/79 Blood Pressure Mean [Right Arm] 93 02 Sat by Pulse Oximetry 99 99 100 Oxygen Delivery Method Room Air 02/26/25 21:30 Temperature Temperature Source Pulse Rate 67 Pulse Rate [Left Radial] Respiratory Rate 21 Blood Pressure 100/64 L Blood Pressure [Right Arm] Blood Pressure Mean [Right Arm] 02 Sat by Pulse Oximetry 98 Oxygen Delivery Method Lab Data Lab Results 02/26/25 20:25: WBC 4.8, RBC 3.78 L, Hgb 11.4 L, Hct 34.0 L, MCV 89.9, MCH 30.2, MCHC 33.5, RDW 12.3, Plt Count 223, MPV 9.2, Neut % (Auto) 55.9, Lymph % (Auto) 36.0, [place] % (Auto) 6.7, Eos % (Auto) 0.8, Baso % (Auto) 0.2, Neut # (Auto) 2.7, Lymph # (Auto) 1.7, [place] # (Auto) 0.3, Eos # (Auto) 0.0, Baso # (Auto) 0.0, Sodium 138, Potassium 3.9, Chloride 105, Carbon Dioxide 30, Anion Gap 6.9, BUN 14 D, Creatinine 0.90, Estimated Creat Clear 130, Estimated GFR 73, Est GFR ( Amer) 88, Glucose 84, Lactate 0.9, Calcium 8.5, Total Bilirubin 0.3, AST 27, ALT 17, Alkaline Phosphatase 57, Total Creatine Kinase 166 H, Total Protein 6.2 L, Albumin 3.6, Globulin 2.6, Albumin/Globulin Ratio 1.4 02/26/25 21:23: Urine Color Yellow, Urine Appearance Clear, Urine pH 6.0, Ur Specific [place] 1.025, Urine Protein Negative, Urine Glucose (UA) Negative, Urine Ketones Negative, Urine Blood Negative, Urine Nitrate Negative, Urine Bilirubin Negative, Urine Urobilinogen 1.0, Ur Leukocyte Esterase Negative, Urine RBC None, Urine WBC None, Ur Squamous Epith Cells None, Urine Bacteria None 02/26/25 21:25: Urine HCG, Qual Negative Orders (Tests/Meds): ORDERS Category Date Time Status CBC w/Auto Diff [Complete Blood Count Auto Diff] Stat Lab 02/26/25 20:25 Completed CK [Creatine Kinase] Stat Lab 02/26/25 20:25 Completed CMP [Comprehensive Metabolic Panel] Stat Lab 02/26/25 20:25 Completed Lactic Acid Stat Lab 02/26/25 20:25 Completed UA [Urinalysis and Microscopic] Stat Lab 02/26/25 21:23 Completed Urine , HCG Qual. Stat Lab 02/26/25 21:25 Completed ECG Data Tracing #1: I reviewed this ECG and interpreted as documented below: Normal sinus rhythm with right bundle branch block. T wave inversions in leads V2 and V3. No ST elevation or depression. Critical Care <Michelle Olsen, ERIC - Last Filed: 02/26/25 22:07> Critical Care Time Critical Care Time: No
[2025-02-26 20:30] VITALS: BP 107/77; PULSE 73; RESP 19; O2SAT 99
--- OUTSIDE RECORDS SUMMARY | 2025-02-26 20:32 | XMS_ITS | Encounter Summary ---
Author Organization [facility] Address [address] [place] [id number] Care Team Providers Care Optical Systems Engineer Name Role Phone Pat Owens DO Primary Care Provider [phone] Reason for Referral * Consultation (Routine) - Authorized Specialty Diagnoses / Procedures Referred By Contac t Referred To Contact Sleep Medicine Diagnoses Syncope, unspecified syncope type Procedures [place] OFFICE/OUTPATIENT NEW MODERATE MDM 45 MINUTES Neri Light MD [address] [place] [address] Phone: tel: fax: [facility] SLEEP MEDICINE [address] [place] [phone] Phone: tel: fax: Referral ID Status Reason Start Date Expiration Date V isits Requested Visits Authorized Authorized 02/04/2025 05/06/2026 1 1 Reason for Visit * Reason Onset Date Comments NEW ORDER NEEDED 02/03/2025 Encounter Details Date Type Department Care Team (Late st Contact Info) Description 02/03/2025 Telephone [facility] FAMILY MEDICINE [address] [place] [address] Pat Owens DO [address] [place] [address] NEW ORDER NEEDED Social History [...] or training? Not on file Preferred Language Setswana 10/16/2023 PHQ-2 Answer Date Recorded Patient Health [...] the patient can either be seen at [facility] or in [place]. Once she has that visit, they will document on all the signs and symptoms that are necessary for this type of testing and will proceed accordingly. documented in this encounter Plan of Treatment Upcoming Encounters Date Type Department Care Team (Late st Contact Info) Description 02/28/2025 8:45 AM EDT Office Visit [facility] [address] [place] [phone] Neri Light MD [address] [place] [address] 03/24/2025 11:00 AM EDT Office Visit [facility] ENDOCRINOLOGY [address] [phone] EdnacCalli arita PA-C [address] [address] 03/31/2025 3:00 PM EDT Appointment [facility] [address] [place] [address] 05/20/2025 11:30 AM EST Office Visit [facility] FAMILY MEDICINE [address] [place] [address] Pat Owens DO [address] [place] [address] 06/16/2025 12:30 PM EST Office Visit [facility] SLEEP MEDICINE [address] [place] [phone] Breanne Stone, WRAPPER SELECTOR [address] [facility] [address] [place], [place] [phone] 04/28/2026 1:30 PM EST Office Visit [facility] CARDIOLOGY [address] [facility] [address] [place] [phone] Mateo Luque MD [address] [facility] [address] [facility] [address] [place], [place] [phone] documented as of this encounter Visit Diagnoses Diagnosis Syncope, unspecified syncope type- Primary documented in this encounter Additional Health Concerns Assessment Noted Time PHQ-2 Depression Total Score: 3 07/11/19 24 12:38 PM EST documented as of this encounter Care Teams Optical Systems Engineer Relationship Specialty Start Date End Date Pat Owens DO [address] [place] [address] PCP - General Family Medicine 10/30/18 documented as of this encounter
--- OUTSIDE RECORDS SUMMARY | 2025-02-26 20:32 | XMS_ITS | Encounter Summary ---
Author Organization [facility] Address [address] [place] [address] Care Team Providers Care Application Specialist Name Role Phone Pat Owens DO Primary Care Provider Reason for Visit * Reason Onset Date Comments Results 01/05/2025 Encounter Details Date Type Department Care Team (Late st Contact Info) Description 01/05/2025 Telephone [facility] FAMILY MEDICINE [address] [facility] [place] [address] Pat Owens DO [address] [place] [address] Results Social History Tobacco Use [...] or training? Not on file Preferred Language Filipino 10/16/2023 PHQ-2 Answer Date Recorded Patient Health [...] Hi, I have reached out to the antisqueak filler but I was unable to make an appointment because the intake team has not went over it first. I have not returned to work yet due to all of my symptoms still persisting. My la paperwork states I was supposed to return to work on 01/03. They are requesting updated paperwork with a new return to work date. They said it does not need a definite date just a updated one as they know they can change. Blanka Sánchez documented in this encounter Plan of Treatment Upcoming Encounters Date Type Department Care Team (Yennifer ruvalcaba Contact Info) Description 02/28/2025 8:45 AM EDT Office Visit [facility] FAMILY MEDICINE [address] [place] [address] Neri Light MD [address] [place], [place] [phone] 03/24/2025 11:00 AM EDT Office Visit [facility] ENDOCRINOLOGY [address] [facility] [address] [place] [phone] Calli Rodriguez PA-C [address] [phone] 03/31/2025 3:00 PM EDT Appointment [facility] [address] [facility] [address] [place] [phone] 05/20/2025 11:30 AM EST Office Visit [facility] FAMILY MEDICINE [address] [place] [address] Pat Owens DO [address] [place], [place] [phone] 06/16/2025 12:30 PM EST Office Visit [facility] SLEEP MEDICINE [address] [facility] [place] [phone] Breanne Stone, WINCHER [address] [facility] [address] [place] [address] 04/28/2026 1:30 PM EST Office Visit [facility] CARDIOLOGY [address] [facility] [address] [place] [phone] Mateo Luque MD [address] [facility] B[address] [facility] [address] [place] [address] documented as of this encounter Visit Diagnoses Not on filedocumented in this encounter Additional Health Concerns Assessment Noted Time PHQ-2 Depression Total Score: 3 07/11/19 24 12:38 PM EST documented as of this encounter Care Teams Application Specialist Relationship Specialty Start Date End Date Pat Owens DO [address] [place] [address] PCP - General Family Medicine 10/30/18 documented as of this encounter
--- OUTSIDE RECORDS SUMMARY | 2025-02-26 20:32 | XMS_ITS | Encounter Summary ---
[facility] Organization [facility] Address [address] [place] [id number] Care Team Providers Care Cooking Show Host Name Role Phone Pat Owens DO Primary Care Provider [phone] Reason for Referral * Consultation (Routine) - Closed Specialty Diagnoses / Procedures Referred By Contac t Referred To Contact Endocrinology Diagnoses Glucose intolerance Procedures IN OFFICE/OUTPATIENT NEW MODERATE MDM 45 MINUTES Neri Light MD [address] [place] [address] Phone: tel: fax: [facility] ENDOCRINOLOGY [address] [place] [address] Phone: tel: fax: Referral ID Status Reason Start Date Expiration Date V isits Requested Visits Authorized [id number] Closed Specialty Services Required 12/31/2024 04/01/2026 1 1 Reason for Visit * Reason Onset Date Comments Results 12/29/2024 Encounter Details Date Type Department Care Team (Late st Contact Info) Description 12/29/2024 Telephone [facility] FAMILY MEDICINE [address] [place] [address] Pat Owens DO [address] [place] [address] Results Social History Tobacco Use [...] or training? Not on file Preferred Language Burmese 10/16/2023 PHQ-2 Answer Date Recorded Patient Health [...] Description 02/28/2025 8:45 AM EDT Office Visit [facility] 210 [facility] [place] [address] Neri Light MD [address] [place] [address] 03/24/2025 11:00 AM EDT Office Visit [facility] ENDOCRINOLOGY [address] [address] Calli Rodriguez PA-C [address] [place] [address] 03/31/2025 3:00 PM EDT Appointment [facility] NONINVASIVE LAB [address]rd [place] [address] 05/20/2025 11:30 AM EST Office Visit [facility] FAMILY MEDICINE [address] [place] [address] Pat Owens DO [address] [place] [address] 06/16/2025 12:30 PM EST Office Visit [facility] SLEEP MEDICINE 2400 [place] [address] Breanne Stone, CLIENT SERVICES ASSISTANT 1720 [facility] [address] [place] [address] 04/28/2026 1:30 PM EST Office Visit [facility] CARDIOLOGY 1720 [facility] [address] 400 [place] [address] Mateo Luque MD [facility] [facility] [place] [address] [place] [address] documented as of this encounter Visit Diagnoses Diagnosis 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
--- OUTSIDE RECORDS SUMMARY | 2025-02-26 20:32 | XMS_ITS | Encounter Summary ---
[facility] Organization [facility] Address [address] [place] [address] Care Team Providers Care Sample Prep Technician Name Role Phone GracielaPat guadalupe Hazel ALICEA [...] or training? Not on file Preferred Language Swedish 10/16/2023 PHQ-2 Answer Date Recorded Patient Health [...] AM EDT Office Visit [facility] FAMILY MEDICINE [address] [place] [phone] Neri Light MD [address] [place] [address] 03/24/2025 11:00 AM EDT Office Visit [facility] ENDOCRINOLOGY [address] [phone] Calli Rodriguez PA-C [address] [address] 03/31/2025 3:00 PM EDT Appointment [facility] NONINVASIVE LAB [address]rd [place] [address] 05/20/2025 11:30 AM EST Office Visit [facility] FAMILY MEDICINE [address] [place] [address] Pat Owens DO [address] [place] [address] 06/16/2025 12:30 PM EST Office Visit [facility] SLEEP MEDICINE [address] [place] [address] Breanne Stone, ERIC 1720 [facility] [place] 503 [place] [address] 04/28/2026 1:30 PM EST Office [facility] 1720 [facility] [place] [address] [place] [address] Mateo Luque MD 1720 [facility] Bld[address] E [place] [address] [place], [place] [address] documented as of this encounter Visit Diagnoses Not on filedocumented in this encounter Additional Health Concerns Assessment Noted Time PHQ-2 Depression Total Score: 3 07/11/19 24 12:38 PM EST documented as of this encounter Care Teams Sample Prep Technician Relationship Specialty Start Date End Date Pat Owens DO [address] [place] [address] PCP - General Family Medicine 10/30/18 documented as of this encounter
--- OUTSIDE RECORDS SUMMARY | 2025-02-26 20:32 | XMS_ITS | Encounter Summary ---
Author Organization [facility] Address [address] [place] [address] Care Team Providers Care Ship Laborer Name Role Phone Pat Owens DO Primary Care Provider Reason for Visit * Reason Onset Date Comments Results 12/28/2024 Encounter Details Date Type Department Care Team (Late st Contact Info) Description 12/28/2024 Telephone [facility] FAMILY MEDICINE 210 [facility] [place] [place] [address] Pat Owens DO 210 [place] [address] Results Social History Tobacco Use [...] or training? Not on file Preferred Language Turkish 10/16/2023 PHQ-2 Answer Date Recorded Patient Health [...] AM EDT Office Visit [facility] MED[facility] 210 [place] [address] Neri Light MD [address] [place], [place] [address] 03/24/2025 11:00 AM EDT Office Visit [facility]CRINOLOGY 1775 [facility] [place] [address] Calli Rodriguez PA-C [facility]75 [facility] [address] [place] [address] 03/31/2025 3:00 PM EDT Appointment [facility] NONINVASIVE LAB 1720 [facility] 3rd [place] [address] 05/20/2025 11:30 AM EST Office Visit [facility] FAMILY MEDICINE 210 [place] [address] Pat Owens DO 210 [place] [address] 06/16/2025 12:30 PM EST Office Visit [facility] SLEEP MEDICINE 2400 [place] [address] Breanne Stone, LINE AND FRAME POLER 1720 [facility] 503 [place] [address] 04/28/2026 1:30 PM EST Office Visit [facility] CARDIOLOGY 1720 [facility] 400 [place] [address] Mateo Luque MD [address] [facility] 400 [place] [address] documented as of this encounter Visit Diagnoses Not on filedocumented in this encounter Additional Health Concerns Assessment Noted Time PHQ-2 Depression Total Score: 3 07/11/19 24 12:38 PM EST documented as of this encounter Care Teams Ship Laborer Relationship Specialty Start Date End Date Pat Owens DO [address] [place] [address] PCP - General Family Medicine 10/30/18 documented as of this encounter
--- OUTSIDE RECORDS SUMMARY | 2025-02-26 20:32 | XMS_ITS | Encounter Summary ---
[facility] Address [address] [place] [address] Care Team Providers Care Outsole Molder Name Role Phone Pat Owens Primary Care Provider Encounter Details Date Type Department Care Team (Late st Contact Info) Description 12/20/2021 Retail Pharmacy Consultation [facility] [place] [address] [place] [address] Ana Jones [facility] [address] [place], [place] [phone] Social History Tobacco Use Types Packs/Day Years [...] [facility] [address] [place] [phone] Neri Light MD [address] [place], [place] [address] 03/24/2025 11:00 AM EDT Office [facility] END[facility] 1775 [facility] 50 [place] [address] Calli Rodriguez PA-C [address] [address] 03/31/2025 3:00 PM EDT Appointment [facility] NONINVASIVE LAB 1720 [facility] 3rd [place] [address] 05/20/2025 11:30 AM EST Office [facility] [address] [place] [address] Pat Owens DO 210 [place], [place] [address] 06/16/2025 12:30 PM EST Office [facility] SLEEP MEDICINE 2400 [place] [address] Breanne Stone, CODING SPECIALIST HOME HEALTH 1720 [facility] 503 [place], [place] [address] 04/28/2026 1:30 PM EST Office [facility] C[facility] 1720 [facility] 400 [place] [address] Mateo Luque MD [address] [place] [address] [place] [address] documented as of this encounter Visit Diagnoses [...] documented as of this encounter Care Teams Outsole Molder Relationship Specialty Start Date End Date Pat Owens DO [address] [place] [address] PCP - General Family Medicine 10/30/18 documented as of this encounter
--- OUTSIDE RECORDS SUMMARY | 2025-02-26 20:32 | XMS_ITS | Encounter Summary ---
[facility] Address [address] [place] [address] Care Team Providers Care Truckload Checker Name Role Phone GracielaPat guadalupe Hazel ALICEA Primary Care Provider Encounter Details Date Type Department Care Team (Late st Contact Info) Description 02/25/2025 Results Follow-Up [facility] ENDOCRINOLOGY [address] [address] Calli Rodriguez PA-C [facility]5 [place] [address] Social History Tobacco Use Types Packs/Day Years [...] or training? Not on file Preferred Language Montenegrin 10/16/2023 PHQ-2 Answer Date Recorded Patient Health [...] Description 02/28/2025 8:45 AM EDT Office Visit [facility] FAMILY MEDICINE 210 [facility] [place] [address] Neri Light MD 210 [facility] [place] [address] 03/24/2025 11:00 AM EDT Office Visit [facility] ENDOCRINOLOGY [address] [phone] Calli Rodriguez PA-C [address] [address] 03/31/2025 3:00 PM EDT Appointment [facility] NONINVASIVE LAB 1720 [facility] 3rd [place] [address] 05/20/2025 11:30 AM EST Office Visit [facility] FAMILY MEDICINE [address] [place] [address] Pat Owens DO [address] [place] [address] 06/16/2025 12:30 PM EST Office Visit [facility] SLEEP MEDICINE 2400 [place] [address] Breanne Stone, VP PRODUCT 1720 [facility] [place] 503 [place], [place] [address] 04/28/2026 1:30 PM EST Office Visit [facility] CARDIOLOGY 1720 [facility] [place] 400 [place] [address] Mateo Luque MD 1720 [facility] Bld[address] E [place] [address] [place], [place] [address] documented as of this encounter Visit Diagnoses Not on filedocumented in this encounter Additional Health Concerns Assessment Noted Time PHQ-2 Depression Total Score: 3 07/11/19 24 12:38 PM EST documented as of this encounter Care Teams Truckload Checker Relationship Specialty Start Date End Date Pat Owens DO [address] [place] [address] PCP - General Family Medicine 10/30/18 documented as of this encounter
--- OUTSIDE RECORDS SUMMARY | 2025-02-26 20:32 | XMS_ITS | Encounter Summary ---
[facility] Organization [facility] Address [address] [place] [address] Care Team Providers Care Coat Room Attendant Name Role Phone Pat Owens DO Primary Care Provider Reason for Visit * Reason Onset Date Comments ADA PW 02/04/2025 NEEDING PHYS SIG NATURE Encounter Details Date Type Department Care Team (Late st Contact Info) Description 02/04/2025 Telephone [facility] FAMILY MEDICINE [address] [place] [address] Pat Owens DO [address] [place] [address] ADA PW (NEEDING PHYS SIGNATURE [...] or training? Not on file Preferred Language Namibian 10/16/2023 PHQ-2 Answer Date Recorded Patient Health [...] WILL BE NOTIFIED SOONIT IS COMPLETED. CALLBACK #[phone] documented in this encounter Plan of Treatment Upcoming Encounters Date Type Department Care Team (Late st Contact Info) Description 02/28/2025 8:45 AM EDT Office Visit [facility] FAMILY MEDICINE [address] [place] [address] Neri Goss MD 210 [place] [address] 03/24/2025 11:00 AM EDT Office Visit [facility] ENDOCRINOLOGY 1775 [facility] 50 [place] [address] Calli Rodriguez PA-C [facility]75 [facility] 50 [place] [address] 03/31/2025 3:00 PM EDT Appointment [facility] NONINVASIVE LAB [address] 3rd [place] [address] 05/20/2025 11:30 AM EST Office Visit [facility] FAMILY MEDICINE 210 [place] [address] Pat Owens DO 210 [place] [address] 06/16/2025 12:30 PM EST Office Visit [facility] SLEEP MEDICINE 2400 [facility] [place] [address] Breanne Stone, WINDOW GLASS CUTTER OFF 1720 [facility] 503 [place] [address] 04/28/2026 1:30 PM EST Office Visit [facility] CARDIOLOGY 1720 [address] [facility] 400 [place] [address] Mateo Luque MD [address] [place] [address] [place], [place] [address] documented as of this encounter Visit Diagnoses Not on filedocumented in this encounter Additional Health Concerns Assessment Noted Time PHQ-2 Depression Total Score: 3 07/11/19 24 12:38 PM EST documented as of this encounter Care Teams Coat Room Attendant Relationship Specialty Start Date End Date Pat Owens DO [address] [place] [address] PCP - General Family Medicine 10/30/18 documented as of this encounter
--- OUTSIDE RECORDS SUMMARY | 2025-02-26 20:32 | XMS_ITS | Encounter Summary ---
[facility] [address] [place] [address] Care Team Providers Care Framing Machine Tender Name Role Phone GracielaPat guadalupe Hazel ALICEA [...] or training? Not on file Preferred Language Khmer 10/16/2023 PHQ-2 Answer Date Recorded Patient Health [...] [facility] FAM[facility] MED[facility]INE [address] [place] [place] [phone] Neri Light MD [address] [place] [address] 03/24/2025 11:00 AM EDT Office Visit [facility] ENDOCRINOLOGY [address] [phone] Calli Rodriguez PA-C [address] [address] 03/31/2025 3:00 PM EDT Appointment [facility] NONINVASIVE LAB [address] 3rd [place] [address] 05/20/2025 11:30 AM EST Office Visit [facility] FAMILY MEDICINE [address] [place] [address] Pat Owens DO [address] [place] [address] 06/16/2025 12:30 PM EST Office Visit [facility] SLEEP MEDICINE [address] [place] [address] Breanne Stone, ERIC 1720 [facility] [place] 503 [place] [address] 04/28/2026 1:30 PM EST Office Visit [facility] CARDIOLOGY 1720 [facility] [place] 400 [place] [address] Mateo Luque MD 1720 [facility] Bld[address] E [place] [address] [place], [place] [address] documented as of this encounter Visit Diagnoses Not on filedocumented in this encounter Additional Health Concerns Assessment Noted Time PHQ-2 Depression Total Score: 3 07/11/19 24 12:38 PM EST documented as of this encounter Care Teams Framing Machine Tender Relationship Specialty Start Date End Date Pat Owens DO [address] [place] [address] PCP - General Family Medicine 10/30/18 documented as of this encounter
--- OUTSIDE RECORDS SUMMARY | 2025-02-26 20:32 | XMS_ITS | Encounter Summary ---
Author Organization [facility] Address [address] [place] [address] Care Team Providers Care Clinic Business Manager Name Role Phone Pat Owens Hazel ALICEA Primary Care Provider Reason for Visit * Reason Onset Date Comments FMLA CORRECTION 01/10/2025 DATE OF RETURN N EEDS TO BE CHANGED Encounter Details Date Type Department Care Team (Late st Contact Info) Description 01/10/2025 Telephone [facility] FAMILY MEDICINE 210 [place] [address] Neri Light MD 210 [place] [address] FMLA CORRECTION (DATE OF RETURN [...] or training? Not on file Preferred Language Grenadian 10/16/2023 PHQ-2 Answer Date Recorded Patient Health [...] EDT PT CALLED TO SAY THAT THE [facility] PAPERWORK NEEDS TO HAVE AN ACTUAL DATE WRITTEN ON THE FORM, IT CANNOT STATE UNABLE TO DETERMINE AT THIS TIME . PT SAID HER WORK WILL NOT ACCEPT THIS, BUT THAT WITH A DATE, IT CAN BE MODIFIED. THE DATE CAN BE FOR AFTER THE LAST ROUND OF TESTS THAT ARE ON 02/17. PLEASE CALL PT AT [phone] WHEN THE PAPERWORK HAS BEEN CORRECTED. SHE WILL COME INSPECTORS AND REGULATORY OFFICERS THE COPY AND BRING IT TO HER WORK. documented in this encounter Plan of Treatment Upcoming Encounters Date Type Department Care Team (Late st Contact Info) Description 02/28/2025 8:45 AM EDT Office Visit [facility] FAMILY MEDICINE [address] [place] [address] Neri Light MD 210 [place] [address] 03/24/2025 11:00 AM EDT Office Visit [facility] ENDOCRINOLOGY 1775 [facility] 50 [place] [address] Calli Rodriguez PA-C 1775 [facility] 50 [place] [address] 03/31/2025 3:00 PM EDT Appointment [facility] NONINVASIVE LAB 1720 [facility] 3rd [place] [address] 05/20/2025 11:30 AM EST Office Visit [facility] FAMILY MEDICINE 210 [place] [address] Pat Owens DO 210 [place] [address] 06/16/2025 12:30 PM EST Office Visit [facility] SLEEP MEDICINE 2400 [place] [address] Breanne Stone, MARBLE SETTER [address] [facility] [address] [address] [address] 04/28/2026 1:30 PM EST Office Visit [facility] CARDIOLOGY 1720 [address] [facility] 400 [place] [address] Mateo Luque MD [address] Bld[address] [facility] 400 [place] [address] documented as of this encounter Visit Diagnoses Not on filedocumented in this encounter Additional Health Concerns Assessment Noted Time PHQ-2 Depression Total Score: 3 07/11/19 24 12:38 PM EST documented as of this encounter Care Teams Clinic Business Manager Relationship Specialty Start Date End Date Pat Owens DO [address] [place] [address] PCP - General Family Medicine 10/30/18 documented as of this encounter
--- OUTSIDE RECORDS SUMMARY | 2025-02-26 20:32 | XMS_ITS | Encounter Summary ---
Author Organization [facility] Address [address] [place] [address] Care Team Providers Care Multimedia Coordinator Name Role Phone Pat Owens DO Primary Care Provider Encounter Details Date Type Department Care Team (Late st Contact Info) Description 02/02/2025 Telephone [facility] FAMILY MEDICINE [address] [place] [address] Pat Owens DO [address] [place] [address] Social History Tobacco Use Types [...] Gaviria - 02/02/2025 10:17 AM EDT Called jessie back and advised the record request that [...] Description 02/28/2025 8:45 AM EDT Office Visit [facility] FAMILY MEDICINE [address] [place] [address] Neri Light MD [address] [place] [address] 03/24/2025 11:00 AM EDT Office Visit [facility] ENDOCRINOLOGY [address] [facility] [address] [place] [address] Calli Rodriguez PA-C [address] [facility] [address] [place] [address] 03/31/2025 3:00 PM EDT Appointment [facility] NONINVASIVE LAB 1720 [facility] 3rd [place] [address] 05/20/2025 11:30 AM EST Office Visit [facility] FAMILY MEDICINE 210 [place] [address] Pat Owens DO 210 [place] [address] 06/16/2025 12:30 PM EST Office Visit [facility] SLEEP MEDICINE 2400 [place] [address] Breanne Stone, ANALYST MICROBIOLOGY LAB 1720 [facility] 503 [place] [address] 04/28/2026 1:30 PM EST Office Visit [facility] CARDIOLOGY 1720 [facility] [address] 400 [place] [address] Mateo Luque MD 1720 [facility] B[address] [place] 400 [place] [address] documented as of this encounter Visit Diagnoses Not on filedocumented in this encounter Additional Health Concerns Assessment Noted Time PHQ-2 Depression Total Score: 3 07/11/19 24 12:38 PM EST documented as of this encounter Care Teams Multimedia Coordinator Relationship Specialty Start Date End Date Pat Owens DO [address] [place] [address] PCP - General Family Medicine 10/30/18 documented as of this encounter
--- OUTSIDE RECORDS SUMMARY | 2025-02-26 20:32 | XMS_ITS | Encounter Summary ---
[facility] Address [address] [place] [address] Care Team Providers Care Film Historian Name Role Phone Pat Owens Primary Care Provider Encounter Details Date Type Department Care Team (Late st Contact Info) Description 12/27/2024 Results Follow-Up [facility] FAMILY MEDICINE 210 [facility] [place] [address] Neri Light MD 210 [place] [address] Social History Tobacco Use Types [...] or training? Not on file Preferred Language Serbian 10/16/2023 PHQ-2 Answer Date Recorded Patient Health [...] Description 02/28/2025 8:45 AM EDT Office Visit [facility] FAMILY MEDICINE 210 [place] [address] Neri Light MD 210 [place] [address] 03/24/2025 11:00 AM EDT Office Visit [facility] ENDOCRINOLOGY [address] [phone] Calli Rodriguez PA-C [address] [address] 03/31/2025 3:00 PM EDT Appointment [facility] NONINVASIVE LAB 1720 [facility] 3rd [place] [address] 05/20/2025 11:30 AM EST Office Visit [facility] FAMILY MEDICINE [address] [place] [address] Pat Owens DO [address] [place] [address] 06/16/2025 12:30 PM EST Office Visit [facility] SLEEP MEDICINE 2400 [facility] [place] [address] Breanne Stone, STRUCTURAL STEEL DETAILER 1720 [facility] 503 [place], [place] [address] 04/28/2026 1:30 PM EST Office Visit [facility] CARDIOLOGY 1720 [facility] 400 [place] [address] Mateo Luque MD 1720 [facility] Bldg E [facility] 400 [place], [place] [address] documented as of this encounter Visit Diagnoses Not on filedocumented in this encounter Additional Health Concerns Assessment Noted Time PHQ-2 Depression Total Score: 3 07/11/19 24 12:38 PM EST documented as of this encounter Care Teams Film Historian Relationship Specialty Start Date End Date Pat Owens DO [address] [place] [address] PCP - General Family Medicine 10/30/18 documented as of this encounter
--- OUTSIDE RECORDS SUMMARY | 2025-02-26 20:32 | XMS_ITS | Encounter Summary ---
[facility] Address [address] [place] [address] Care Team Providers Care Magnetic Doctor Name Role Phone Pat Owens Primary Care Provider Encounter Details Date Type Department Care Team (Late st Contact Info) Description 12/27/2024 Results Follow-Up [facility] FAMILY MEDICINE 210 [facility] [place] [address] Neri Light MD 210 [place] [address] Social History Tobacco Use Types [...] or training? Not on file Preferred Language German 10/16/2023 PHQ-2 Answer Date Recorded Patient Health [...] Description 02/28/2025 8:45 AM EDT Office Visit [facility] FAMILY MEDICINE [address] [place] [phone] Neri Light MD [address] [place] [address] 03/24/2025 11:00 AM EDT Office Visit [facility] ENDOCRINOLOGY [address] [phone] Calli Rodriguez PA-C [address] [address] 03/31/2025 3:00 PM EDT Appointment [facility] NONINVASIVE LAB 1720 [facility] 3rd [place] [address] 05/20/2025 11:30 AM EST Office Visit [facility] FAMILY MEDICINE [address] [place] [address] Pat Owens DO [address] [place] [address] 06/16/2025 12:30 PM EST Office Visit [facility] SLEEP MEDICINE [address] [place] [phone] Breanne Stone, LABOR RELATIONS OR PERSONNEL NEGOTIATOR 1720 [facility] 503 [place], [place] [id number] 04/28/2026 1:30 PM EST Office Visit [facility] CARDIOLOGY 1720 [facility] 400 [place] [phone] Mateo Luque MD 1720 [facility] Bldg E [place] [address] [place], [place] [id number] documented as of this encounter Visit Diagnoses Not on filedocumented in this encounter Additional Health Concerns Assessment Noted Time PHQ-2 Depression Total Score: 3 07/11/19 24 12:38 PM EST documented as of this encounter Care Teams Magnetic Doctor Relationship Specialty Start Date End Date Pat Owens DO [address] [place] [address] PCP - General Family Medicine 10/30/18 documented as of this encounter
--- OUTSIDE RECORDS SUMMARY | 2025-02-26 20:33 | XMS_ITS | Encounter Summary ---
[facility] Address [address] [place] [address] Care Team Providers Care Community Program Assistant Name Role Phone Pat Owens DO Primary Care Provider Reason for Visit * Reason Onset Date Comments MyChart/ FMLA forms 12/23/2024 Encounter Details Date Type Department Care Team (Late st Contact Info) Description 12/23/[address] [facility]ILY MEDICINE [address] [facility] [place] [address] Pat Owens DO [address] [place] [address] MyChart/ FMLA forms Social History [...] or training? Not on file Preferred Language Belarusian 10/16/2023 PHQ-2 Answer Date Recorded Patient Health [...] [facility] FAMILY MEDICINE [address] [place] [address] Neri Light MD [address] [place] [address] 03/24/2025 11:00 AM EDT Office Visit [facility] ENDOCRINOLOGY 1775 [facility] 50 [place] [phone] Calli Rodriguez PA-C 1775 [facility] 50 [place] [address] 03/31/2025 3:00 PM EDT Appointment [facility] NONINVASIVE LAB [address] [place] [phone] 05/20/2025 11:30 AM EST Office Visit [facility] FAMILY MEDICINE 210 [place] [address] Pat Owens DO 210 [place] [address] 06/16/2025 12:30 PM EST Office Visit [facility] SLEEP MEDICINE 2400 [place] [address] Breanne Stone, PAPIER MACHE' MOLDER 1720 [facility] 503 [place] [address] 04/28/2026 1:30 PM EST Office Visit [facility] CARDIOLOGY 1720 [facility] 400 [place] [phone] Mateo Luque MD 1720 [facility] Bldg E [facility] 400 [place] [address] documented as of this encounter Visit Diagnoses Not on filedocumented in this encounter Additional Health Concerns Assessment Noted Time PHQ-2 Depression Total Score: 3 07/11/19 24 12:38 PM EST documented as of this encounter Care Teams Community Program Assistant Relationship Specialty Start Date End Date Pat Owens DO 210 [place] [address] PCP - General Family Medicine 10/30/18 documented as of this encounter
--- OUTSIDE RECORDS SUMMARY | 2025-02-26 20:33 | XMS_ITS | Encounter Summary ---
[facility] Organization [facility] Address [address] [place] [address] Care Team Providers Care Final Inspection Supervisor Name Role Phone GracielaPat guadalupe Primary Care Provider Encounter Details Date Type Department Care Team (Late st Contact Info) Description 01/11/2025 Telephone [facility] FAMILY MEDICINE 210 [place] [address] Neri Light MD 210 [place] [address] Social History Tobacco Use Types [...] or training? Not on file Preferred Language Cambodian 10/16/2023 PHQ-2 Answer Date Recorded Patient Health [...] 02/28/2025 8:45 AM EDT Office Visit [facility] FAMILY MEDICINE [address] [place] [phone] Neri Light MD [address] [place] [address] 03/24/2025 11:00 AM EDT Office Visit [facility] ENDOCRINOLOGY 1775 [facility] 50 [place] [phone] Calli Rodriguez PA-C [facility]75 [facility] [address] [place] [address] 03/31/2025 3:00 PM EDT Appointment [facility] NONINVASIVE LAB 1720 [facility] [facility] 3rd [place] [address] 05/20/2025 11:30 AM EST Office Visit [facility] FAMILY MEDICINE [address] [place] [address] Pat Owens DO [address] [place] [address] 06/16/2025 12:30 PM EST Office Visit [facility] SLEEP MEDICINE 2400 [place] [phone] Breanne Stone, SAW OPERATOR 1720 [facility] 503 [place] [address] 04/28/2026 1:30 PM EST Office Visit [facility] CARDIOLOGY 1720 [facility] 400 [place] [address] Mateo Luque MD 1720 [facility] Bldg E [facility] 400 [place] [address] documented as of this encounter Visit Diagnoses Not on filedocumented in this encounter Additional Health Concerns Assessment Noted Time PHQ-2 Depression Total Score: 3 07/11/19 24 12:38 PM EST documented as of this encounter Care Teams Final Inspection Supervisor Relationship Specialty Start Date End Date Pat Owens DO [address] [place] [address] PCP - General Family Medicine 10/30/18 documented as of this encounter
--- OUTSIDE RECORDS SUMMARY | 2025-02-26 20:33 | XMS_ITS | Encounter Summary ---
[facility] Organization [facility] Address [address] [place] [address] Care Team Providers Care Element Setter Name Role Phone Pat Owens Primary Care Provider Encounter Details Date Type Department Care Team (Late st Contact Info) Description 01/20/2025 Results Follow-Up [facility] FAMILY MEDICINE 210 [facility] [place] [address] Neri Light MD 210 [place] [address] Social History Tobacco Use Types [...] or training? Not on file Preferred Language Wolof 10/16/2023 PHQ-2 Answer Date Recorded Patient Health [...] Description 02/28/2025 8:45 AM EDT Office Visit [facility] FAMILY MEDICINE 210 [place] [phone] Neri Light MD 210 [place] [address] 03/24/2025 11:00 AM EDT Office Visit [facility] ENDOCRINOLOGY [address] [phone] Calli Rodriguez PA-C [address] [address] 03/31/2025 3:00 PM EDT Appointment [facility] NONINVASIVE LAB [address] [facility] 3rd [place] [address] 05/20/2025 11:30 AM EST Office Visit [facility] FAMILY MEDICINE [address] [place] [address] Pat Owens DO [address] [place] [address] 06/16/2025 12:30 PM EST Office Visit [facility] SLEEP MEDICINE [address] [facility] [place] [phone] Breanne Stone, COMPLIANCE AUDITOR 1720 [facility] 503 [place], [place] [id number] 04/28/2026 1:30 PM EST Office Visit [facility] CARDIOLOGY 1720 [facility] 400 [place] [phone] Mateo Luque MD 1720 [facility] Bldg E [facility] 400 [place], [place] [phone] documented as of this encounter Visit Diagnoses Not on filedocumented in this encounter Additional Health Concerns Assessment Noted Time PHQ-2 Depression Total Score: 3 07/11/19 24 12:38 PM EST documented as of this encounter Care Teams Element Setter Relationship Specialty Start Date End Date Pat Owens DO [address] [place] [address] PCP - General Family Medicine 10/30/18 documented as of this encounter
--- OUTSIDE RECORDS SUMMARY | 2025-02-26 20:33 | XMS_ITS | Encounter Summary ---
[facility] [address] [place] [address] Care Team Providers Care Scooter Mechanic Name Role Phone Pat Owens DO Primary Care Provider Reason for Visit * Reason Onset Date Comments Results 01/19/2025 Encounter Details Date Type Department Care Team (Late st Contact Info) Description 01/19/2025 Telephone [facility] FAMILY MEDICINE 210 [facility] [place] [address] Pat Owens DO 210 [place] [address] Results Social History Tobacco Use [...] or training? Not on file Preferred Language Djiboutian 10/16/2023 PHQ-2 Answer Date Recorded Patient Health [...] MA - 01/19/2025 10:15 AM EDT Nathan ordonezg: Hi, Just wanted to follow as you [...] [facility] FAMILY MEDICINE 210 [place] [address] Neri Light MD 210 [place], [place] [phone] 03/24/2025 11:00 AM EDT Office Visit [facility] ENDOCRINOLOGY 1775 [facility] 50 [place] [phone] Calli Rodriguez PA-C [address] [address] 03/31/2025 3:00 PM EDT Appointment [facility] NONINVASIVE LAB 1720 [facility] 3rd [place] [address] 05/20/2025 11:30 AM EST Office Visit [facility] FAMILY MEDICINE 210 [place] [address] Pat Owens DO 210 [place] [address] 06/16/2025 12:30 PM EST Office Visit [facility] SLEEP MEDICINE 2400 [place] [phone] Breanne Stone, PRINT BINDING AND FINISHING WORKER 1720 [facility] 503 [place] [address] 04/28/2026 1:30 PM EST Office Visit [facility] CARDIOLOGY 1720 [facility] 400 [place] [phone] Mateo Luque MD 1720 [facility] Bldg E [facility] 400 [place] [address] documented as of this encounter Visit Diagnoses Not on filedocumented in this encounter Additional Health Concerns Assessment Noted Time PHQ-2 Depression Total Score: 3 07/11/19 24 12:38 PM EST documented as of this encounter Care Teams Scooter Mechanic Relationship Specialty Start Date End Date Pat Owens DO [address] [place] [address] PCP - General Family Medicine 10/30/18 documented as of this encounter
--- OUTSIDE RECORDS SUMMARY | 2025-02-26 20:33 | XMS_ITS | Clinical Summary ---
Author Organization [facility] Address [address] [place] [address] Care Team Providers Care Pressure Testing Technician Name Role Phone GracielaPat guadalupe Primary Care Provider Allergies No known active [...] 5 12:53 PM EDT 02/23/20 25 Active levETIRAcetam (KEPPRA) 500 MG tablet Take 1 tablet by mouth 2 (Two) Times a Day. 90 tablet 5 8:23 AM EDT 02/25/20 25 Active venlafaxine XR (EFFEXOR-XR) 75 MG 24 hr capsule Take 1 capsule (75 mg) by mouth Daily for 30 days. 30 capsule 5 1:08 PM EDT 01/26/20 25 025 Discontinued (Reorder) ARIPiprazole (ABILIFY) 5 MG tablet Take 1 tablet by mouth Daily. 30 tablet 2 5 10:50 AM EDT 02/09/20 25 025 Discontinued (External Interface Message) Active Problems [...] organization. Date Type Department Care Team Description 02/25/2025 Results Follow-Up [facility] ENDOCRINOLOGY [address] [address] Calli Rodriguez PA-C 02/09/2025 9:00 AM EDT Office Visit [facility] ENDOCRINOLOGY [address] [address] Calli Rodriguez PA-C Abnormal glucose (Primary Dx); Hypoglycemia 02/09/2025 Travel 02/04/[address] [facility] [address] [place] [address] Pat Owens DO ADA PW (NEEDING PHYS SIGNATURE ) 02/03/[address] [facility] [address] [place] [address] Pat Owens DO NEW ORDER NEEDED 02/02/[address] [facility] [address] [place] [address] Pat Oewns DO 01/27/2025 1:29 PM EDT - 01/27/2025 11:59 PM EDT Hospital Encounter [facility] CARDIOVASCULAR LAB [address] [facility] 3rd [place] [address] Neri Light MD Syncope, unspecified syncope type Discharge Disposition: Home or Self Care 01/27/2025 Travel 01/21/2025 11:45 AM EDT Office Visit [facility] [address] [place] [address] Neri Light MD Syncope, unspecified syncope type (Primary Dx) 01/20/2025 8:00 AM EDT - 01/20/2025 11:59 PM EDT Hospital Encounter [facility] NEUROLOGY DIAGNOSTICS [address] [facility] [address] [place] [address] Neri Light MD Syncope, unspecified syncope type Discharge Disposition: Home or Self Care 01/20/2025 Results Follow-Up [facility] MEDICINE [address] [place] [address] Neri Light MD 01/20/2025 Travel 01/19/[address] [facility] [address] [place] [address] Pat Owens, DO Results 01/14/2025 1:00 PM EDT Office Visit [facility] CARDIOLOGY [address] [facility] [address] [place] [address] Mateo Luque MD Vasodepressor syncope (Primary Dx) 01/14/2025 Travel 01/11/2025 4:00 PM EDT Office Visit [facility] FAMILY MEDICINE [address] [place] [address] Neri Light MD Syncope, unspecified syncope type (Primary Dx) 01/11/2025 Telephone [facility] MEDICINE [address] [place] [address] Neri Light MD 01/11/2025 Travel 01/10/2025 Telephone [facility] FAMILY MEDICINE [address] [place] [address] Neri Light MD FMLA CORRECTION (DATE OF RETURN NEEDS TO BE CHANGED) 01/05/2025 Telephone [facility] FAMILY MEDICINE [address] [place] [address] Pat Owens, DO Results 12/29/2024 Telephone [facility] FAMILY MEDICINE [address] [place] [address] Pat Owens, DO Results 12/28/2024 Telephone [facility] [address] [place] [address] Pat Owens, DO Results 12/27/2024 2:45 PM EDT Office Visit [facility] MEDICINE [address] [place] [address] Neri Light MD Hypoglycemia (Primary Dx) 12/27/2024 Travel 12/27/2024 Results Follow-Up [facility] FAMILY MEDICINE [address] [place] [address] Neri Light MD 12/27/2024 Results Follow-Up [facility] MED[facility] [address] [place] [address] Neri Light MD 12/24/2024 11:15 AM EDT - 12/24/2024 11:59 PM EDT Hospital Encounter [facility] MRI [address] [place] [address] Neri Light MD Near syncope; Atypical migraine; Left-sided weakness Discharge Disposition: Home or Self Care 12/24/2024 Telephone [facility] FAMILY MEDICINE [address] [place] [address] Pat Owens DO Advice Only (PT NEEDS DEXCOM G7 HELP) 12/24/2024 Refill [facility] OBGYN [address] [place] [address] Alejandro King MD Postsurgical menopause 12/24/2024 Travel 12/23/2024 Telephone [facility] FAMILY MEDICINE [address] [place] [address] Pat Owens DO MyChart/ FMLA forms 12/21/2024 9:45 AM EDT Office Visit [facility] FAMILY MEDICINE [address] [place] [address] Neri Light MD Near syncope (Primary Dx); Atypical migraine; Left-sided weakness 12/21/2024 Travel 12/17/2024 12:55 PM EDT Ancillary Procedure [facility] CARDIOLOGY [address] [place] [address] Syncope, unspecified syncope type 12/17/2024 10:45 AM EDT Office Visit [facility] FAMILY MEDICINE [address] [place] [address] Neri Light MD Syncope, unspecified syncope type [...] Maternal Grandmother Ny childress Stroke Maternal Grandmother Ny childress Anxiety disorder Mother Eloisa Chávez Cancer Mother Eloisa Chávez Depression Mother Eloisa Chávez Diabetes Mother Eloisa Chávez Hyperlipidemia Mother Eloisa Chávez Hypertension Mother Eloisa Chávez Miscarriages / Stillbirths Mother Eloisa Sánchez a Obesity Mother Eloisa Chávez Ovarian cancer Mother Eloisa Chávez Bipolar disorder Paternal Grandmother Nancy Schizophrenia Paternal Grandmother aNncy Suicide Attempts Paternal Grandmother Nancy Relation Name [...] or training? Not on file Preferred Language Northern Irish 10/16/2023 PHQ-2 Answer Date Recorded Patient Health [...] Description 02/28/2025 8:45 AM EDT Office Visit [facility] FAMILY MEDICINE [address] [facility] [place] [phone] Neri Light MD [address] [place] [address] 03/24/2025 11:00 AM EDT Office Visit [facility] ENDOCRINOLOGY [address] [facility] [address] [place] [address] Calli Rodriguez PA-C [facility] [facility] [place] [address] 03/31/2025 3:00 PM EDT Appointment [facility] NONINVASIVE LAB [address] [place] [address] 05/20/2025 11:30 AM EST Office Visit [facility] FAMILY MEDICINE [address] [place] [address] Pat Owens DO [address] [place] [address] 06/16/2025 12:30 PM EST Office Visit [facility] SLEEP MEDICINE [address] [place] [address] Breanne Stone, INSPECTOR MULTIFOCAL LENS [address]20 [facility] [address] [place] [address] 04/28/2026 1:30 PM EST Office Visit [facility] CARDIOLOGY [address] [place] [address] Mateo Luque MD [address] [place] [address] Health Maintenance Due Date Last Done Comments Annual Gynecologic Pelvic and Breast Exam 1993 TDAP/TD VACCINES (1 - Tdap) 2012 ANNUAL PHYSICAL 12/27/2015 HEPATITIS C SCREENING 12/27/2015 INFLUENZA VACCINE 01/07/2025 03/06/2024, 04/08/2023, 04/09/2022 HEMOGLOBIN A1C Discontinued 12/17/2024, 09/27/2021, 04/16/2021 Pneumococcal Vaccine 0-49 Aged Out No longer eligible based on patient's age to complete this topic Medical Devices Implanted Type Area Sales Order Coordinator Device Identifier Shelf Expiration Date Model / Serial / Lot Stplr Gastrc/Slv Titan/Sgs Non/Articulr Pwr 23cm 1/Pu - [id number] Implanted:Qty : 1 on 12/19/2021 by Panchito Freire MD at [facility] Implant N/A: Abdomen [employer] 09/12/2022 [id number] / / [id number] Seal Fibrin Tisseel Fz 10ml - [id number] Implanted:Qty : 1 on 12/19/2021 by Panchito Freire MD at [facility] Implant N/A: Abdomen [facility] 07/09/2023 [id number] / / [id number] Valencia Adhs I/O Interceed Abs 3x4in - [id number] Implanted:Qty : 1 on 10/17/2023 by Alejandro King MD at [facility] Implant N/A: Abdomen [employer] J [id number] / / Procedures Procedure Name Priority Date/Time Associated Diagnosis Comments SCANNED - IMAGING 02/24/2025 BASIC METABOLIC PANEL Routine 02/09/2025 9:35 AM [...] Hyperglycemia from Last 3 Months Results * IMAGING SCANNED (02/24/2025) Anatomical Region Laterality Modality Radiographic Emily ging Pat Owens DO IMG DIAGNOSTIC IMAGING ORDE RABDANIELLE Final Result * Cortisol - AM (02/09/2025 9:35 AM EDT) Cortisol - AM 10.28 mcg/dL 02/09/2025 5:01 PM EDT [facility] Blood Venipuncture / Unknown 02/09/2025 9:35 AM EDT 02/09/2025 9:35 AM EDT Narrative [facility] - 02/09/2025 5:01 PM EDT Cortisol Reference Ranges: Cortisol 6AM - 10AM Range: 6.02-18.40 mcg/dl Cortisol 4PM - 8PM Range: 2.68-10.50 mcg/dl Calli Michael PA-C LAB BLOOD ORDERABLES Final Result Performing Organization Address City/[facility]/ZIP Co de Phone Number [facility]
[address] [place] [address], * Insulin Antibody (02/09/2025 9:35 AM EDT) Pathologist [facility] Insulin AutoAb <5.0 uU/mL 02/25/2025 3:35 AM [...] 9:35 AM EDT 02/09/2025 9:35 AM EDT [facility] LAB - 02/25/2025 3:35 AM EDT Performed at: - [facility] [address] [place] [id number] Cnc Lathe Machinist: Eneida Hull MD, Phone: [phone] Five Deltakaren Vidapphernestoot PA-C LAB BLOOD ORDERABLES Final Result [facility] [address] [place] [address], [place] [phone] * C-Peptide (02/09/2025 9:35 AM EDT) Pathologist [facility] C-Peptide 1.3 1.1 - 4.4 ng/mL 02/11/2025 12:10 PM EDT [facility] Comment:C-Peptide reference interval is for fasting patients. Blood Venipuncture / Unknown 02/09/2025 9:35 AM EDT 02/09/2025 9:35 AM EDT Narrative [facility] - 02/11/2025 12:10 PM EDT Performed at: [address] [place] [id number] Cnc Lathe Machinist: Lj Newton PhD, Phone: [phone] Calli LEWIS-Elliot LAB BLOOD ORDERABLES Final Result [facility] [address] [place], [place] [address], * (ABNORMAL) ACTH (02/09/2025 9:35 AM EDT) ACTH 5.1(L) 7.2 - 63.3 pg/mL 02/10/2025 3:10 PM EDT [facility] Comment:ACTH reference inter torrie for samples collected between 7 and 10 AM. Blood Venipuncture / Unknown 02/09/2025 9:35 AM EDT 02/09/2025 9:35 AM EDT Narrative [facility] - 02/10/2025 3:10 PM EDT Performed at: [address] [place] [id number] Cnc Lathe Machinist: Lj Newton PhD, Phone: [phone] Calli Rodriguez PA-C LAB BLOOD ORDERABLES Final Result [facility] [address] [place] [address], * TSH (02/09/2025 9:35 AM EDT) TSH 1.690 0.270 - 4.200 uIU/mL 02/09/2025 11:48 PM EDT [facility] Blood Venipuncture / Unknown 02/09/2025 9:35 AM EDT 02/09/2025 9:35 AM EDT Calli Rodriguez PA-C LAB BLOOD ORDERABLES Final Result [facility]
[address] [address], * (ABNORMAL) Basic Metabolic Panel (02/09/2025 9:35 AM EDT) Glucose 50(L) 65 - 99 mg/dL 02/10/2025 12:07 AM T [facility] BUN 22.0(H) 6.0 - 20.0 mg/dL 02/10/2025 12:07 AM [facility] Creatinine 1.02(H) 0.57 - 1.00 mg/dL 02/10/2025 12:07 AM [facility] Sodium 136 136 - 145 mmol/L 02/10/2025 12:07 AM [facility] Potassium 4.2 3.5 - 5.2 mmol/L 02/10/2025 12:07 AM T [facility] Chloride 100 98 - 107 mmol/L 02/10/2025 12:07 AM [facility] CO2 21.1(L) 22.0 - 29.0 mmol/L 02/10/2025 12:07 AM [facility] Calcium 9.7 8.6 - 10.5 mg/dL 02/10/2025 12:07 AM [facility] BUN/Creatinine Ratio 21.6 7.0 - 25.0 02/10/2025 12:07 AM [facility] Anion Gap 14.9 5.0 - 15.0 mmol/L 02/10/2025 12:07 AM [facility] eGFR 75.6 >60.0 mL/min/1.7 3 02/10/2025 12:07 AM [facility] Blood Venipuncture / Unknown 02/09/2025 9:35 AM EDT 02/09/2025 9:35 AM EDT [facility] LABORATORY - 02/10/2025 12:07 AM EDT [...] Rodriguez PA-C LAB BLOOD ORDERABLES Final Result [facility]
[address] [address], * Tilt table (01/27/2025 3:02 PM EDT) [...] study This report is transcribed using the [employer] dictation system. Narrative NEUROLOGY - 01/20/2025 10:24 [...] Luque MD - 01/14/2025 1:00 PM EDT [facility] Cardiology Office Progress Note Princessraman Warren 1995 [address] [place] [address] VISIT DATE: 01/14/25 PCP: Pat Owens DO [address] [place] [address] IDENTIFICATION: A 29 y.o. female, single, [facility] PROBLEM LIST: Syncope 12/31 MRI [...] History of Present Illness HPI Princess Parul Briana presents for follow up per Janneth [...] call with any questions. Mateo Luque MD, FACC us Mateo Luque MD ECG ORDERABLES Final Result * MRI Brain Without Contrast (12/24/2024 11:54 AM EDT) Anatomical Region Laterality Modality Head, Neck N/A Magnetic Resonan ce 12/24/2024 5:06 PM EDT Impressions 12/24/2024 5:10 PM EDT Impression: No acute intracranial process identified. Electronically Signed: Jefferson Sebastian MD 12/24/2024 5:10 PM EDT Workstation ID: [id number] Narrative 12/24/2024 5:10 PM EDT MRI BRAIN [...] MD 12/24/2024 5:10 PM EDT Workstation ID: [id number] Neri Light MD IMG MRI ORDERABLES Final [...] period end 12/22/2024 2:19:23 PM EDT [facility] [employer] Total enrollment period 5 days 1 hours [employer] Device analysis time 4 days 21 hours [employer] Total patient event diaries 0 [employer] Total patient event triggers 4 [employer] Combined report prescription status COMPLETE [employer] Anatomical Region Laterality Modality Other Narrative 01/19/2025 [...] Triplets were present. 1. Overall, low risk compliance monitor. 2. There were 4 patient triggered/symptomatic events which correlated with normal sinus rhythm and sinus tachycardia. 3. No malignant arrhythmias or blocks detected. 4. Harrison of ectopy low. 5. Normal heart rate [...] noted. Study Impressions A normal monitor study. us Neri Light MD CV CARDIAC SERVICES ORDERABLES Final Result * Insulin, Free & Total, Serum (12/17/2024 11:05 AM EDT) Pathologist [facility] Insulin, Free 2.4 uU/mL [facility] Comment: [...] developed and its performance characteristics determined by [employer]. It has not been cleared or approved by the Food and Drug Administration. Blood 12/17/2024 11:0 5 AM EDT 12/17/2024 Narrative [facility] [id number] (AMBULATORY) - 12/24/2024 3:07 AM EDT Performed at: - [facility] [address] [place] [id number] Cnc Lathe Machinist: Michael Tejada MD, Phone: [phone] Patient Fasting: Y us Neri Light MD LAB BLOOD ORDERABLES Final Resu lt [facility] [employer] [address] (AMBULATORY) [address] [place] [address], [facility] [address] [place] [address], * (ABNORMAL) CBC & Differential (12/17/2024 11:05 AM EDT) [facility] WBC 3.9 3.4 - 10.8 x10E3/uL [facility] [...] 12/17/2024 11:0 5 AM EDT 12/17/2024 Narrative [facility] - 12/24/2024 3:07 AM EDT Performed at: 01 - [facility] [id number] Cnc Lathe Machinist: jL Newton PhD, Phone: [phone] Patient Fasting: Y us Neri Light MD LAB BLOOD ORDERABLES Final Resu lt [facility] [address] [place] [address], [facility] [address] [place] [address], * Hemoglobin A1c (12/17/2024 11:05 AM EDT) Pathologist [facility] Hemoglobin A1C 4.9 4.8 - 5.6 % [facility] Comment: Prediabetes: 5.7 - 6.4 Diabetes: >6.4 Glycemic control for adults with diabetes: <7.0 Blood 12/17/2024 11:0 5 AM EDT 12/17/2024 Narrative [facility] - 12/24/2024 3:07 AM EDT Performed at: 01 - [facility] [address] [place] [id number] Cnc Lathe Machinist: Lj Newton PhD, Phone: [phone] Patient Fasting: Y us Neri Light MD LAB BLOOD ORDERABLES Final Resu lt [facility] (AMBULATORY) [address] [place] [address], [facility] [address] [place] [address], * (ABNORMAL) Comprehensive Metabolic Panel (12/17/2024 11:05 AM EDT) Pathologist [facility] Glucose 77 70 - 99 mg/dL [facility] [...] 11:0 5 AM EDT 12/17/2024 Narrative [facility] (AMBULATORY) - 12/24/2024 3:07 AM EDT Performed at: 01 - [facility] [address] [place], [place] [id number] Cnc Lathe Machinist: Lj Newton PhD, Phone: [phone] Patient Fasting: Y us Neri Light MD LAB BLOOD ORDERABLES Final Resu lt [facility] (AMBULATORY) [address] [place] [address], [facility] [address] [place] [address], from Last 3 Months Insurance [employer] Advance Directives * CPR (Attempt to Resuscitate) [...] Of Support Discussed With: Patient Care Teams Pressure Testing Technician Relationship Specialty Start Date End Date Pat Owens DO [address] [place] [address] PCP - General Family Medicine 10/30/18
--- OUTSIDE RECORDS SUMMARY | 2025-02-26 20:33 | XMS_ITS | Encounter Summary ---
[facility] Address [address] [place] [address] Care Team Providers Care Gathering Machine Feeder Name Role Phone GracielaPat guadalupe Hazel ALICEA [...] or training? Not on file Preferred Language Thai 10/16/2023 PHQ-2 Answer Date Recorded Patient Health [...] Description 02/28/2025 8:45 AM EDT Office Visit [facility] FAMILY MEDICINE [address] [place] [phone] Neri Light MD [address] [place] [address] 03/24/2025 11:00 AM EDT Office Visit [facility] ENDOCRINOLOGY [address] [phone] Calli Rodriguez PA-C [address] [address] 03/31/2025 3:00 PM EDT Appointment [facility] NONINVASIVE LAB [address] [place] [address] 05/20/2025 11:30 AM EST Office Visit [facility] FAMILY MEDICINE [address] [place] [address] Pat Owens DO [address] [place] [address] 06/16/2025 12:30 PM EST Office Visit [facility] SLEEP MEDICINE [address] [place] [address] Breanne Stone, ERIC [address] [facility] [address] [place] [address] 04/28/2026 1:30 PM EST Office Visit [facility] CARDIOLOGY [address] [facility] [address] [place] [address] Mateo Luque MD [address] [facility] [address] [place], [place] [phone] documented as of this encounter Visit Diagnoses Not on filedocumented in this encounter Additional Health Concerns Assessment Noted Time PHQ-2 Depression Total Score: 3 07/11/19 24 12:38 PM EST documented as of this encounter Care Teams Gathering Machine Feeder Relationship Specialty Start Date End Date Pat Owens DO [address] [place] [address] PCP - General Family Medicine 10/30/18 documented as of this encounter
--- OUTSIDE RECORDS SUMMARY | 2025-02-26 20:33 | XMS_ITS | Encounter Summary ---
[facility] Address [address] [place] [address] Care Team Providers Care Hook Tender Name Role Phone GracielaPat guadalupe Hazel [...] or training? Not on file Preferred Language Luxembourgish 10/16/2023 PHQ-2 Answer Date Recorded Patient Health [...] 8:45 AM EDT Office Visit [facility] FAMILY MEDICINE [address] [place] [phone] Neri Light MD [address] [place] [place] [address] 03/24/2025 11:00 AM EDT Office Visit [facility] ENDOCRINOLOGY [address] [phone] Calli Rodriguez PA-C [address] [address] 03/31/2025 3:00 PM EDT Appointment [facility] NONINVASIVE LAB [address] [place] [address] 05/20/2025 11:30 AM EST Office Visit [facility] FAMILY MEDICINE [address] [place] [address] Pat Owens DO [address] [place] [place] [address] 06/16/2025 12:30 PM EST Office Visit [facility] SLEEP MEDICINE [address] [place] [address] Breanne Stone, ERIC [address] [facility] [address] [place] [address] 04/28/2026 1:30 PM EST Office Visit [facility] CARDIOLOGY [address] [facility] [address] [place] [phone] Mateo Luque MD [address] [facility] [address] [place], [place] [phone] documented as of this encounter Visit Diagnoses Not on filedocumented in this encounter Additional Health Concerns Assessment Noted Time PHQ-2 Depression Total Score: 3 07/11/19 24 12:38 PM EST documented as of this encounter Care Teams Hook Tender Relationship Specialty Start Date End Date Pat Owens DO [address] [place] [address] PCP - General Family Medicine 10/30/18 documented as of this encounter
--- OUTSIDE RECORDS SUMMARY | 2025-02-26 20:33 | XMS_ITS | Encounter Summary ---
[facility] Address [address] [place] [address] Care Team Providers Care Owner Operator Tanker Truck Driver Name Role Phone GracielaPat guadalupe Hazel ALICEA [...] Description 02/28/2025 8:45 AM EDT Office Visit [facility] FAMILY MEDICINE [address] [place] [phone] Neri Light MD [address] [place] [place] [address] 03/24/2025 11:00 AM EDT Office Visit [facility] ENDOCRINOLOGY [address] [phone] Calli Rodriguez PA-C [address] [address] 03/31/2025 3:00 PM EDT Appointment [facility] NONINVASIVE LAB [address]rd [place] [address] 05/20/2025 11:30 AM EST Office Visit [facility] FAMILY MEDICINE [address] [place] [phone] Pat Owens DO [address] [place] [address] 06/16/2025 12:30 PM EST Office Visit [facility] SLEEP MEDICINE [address] [place] [address] Breanne Stone, ERIC 1720 [facility] [address] [place] [address] 04/28/2026 1:30 PM EST Office Visit [facility]ARDIOLOGY [address] [facility] [address] [place] [phone] Mateo Luque MD 1720 [facility] [address] [place], [place] [phone] documented as of this encounter Visit Diagnoses Not on filedocumented in this encounter Additional Health Concerns Assessment Noted Time PHQ-2 Depression Total Score: 3 07/11/19 24 12:38 PM EST documented as of this encounter Care Teams Owner Operator Tanker Truck Driver Relationship Specialty Start Date End Date Pat Owens DO [address] [place] [address] PCP - General Family Medicine 10/30/18 documented as of this encounter
[2025-02-26 20:35] LABS: Hematocrit 34.0 % (37.0-47.0); Hemoglobin 11.4 g/dL (12.2-16.2); Immature Granulocytes % 0.4 %; Mean Corpuscular HGB Conc 33.5 g/dL (31.8-35.4); Mean Corpuscular Hemoglobin 30.2 pg (27.0-31.2); Mean Corpuscular Volume 89.9 fl (81-99); Nucleated Red Blood Cells % 0 %; Platelet Count 223 K/mm3 (142-424); Red Blood Count 3.78 M/mm3 (4.20-5.40); Red Cell Distribution Width-SD 40.2 fL; White Blood Count 4.8 K/mm3 (4.8-10.8)
[2025-02-26 20:42] LABS: Albumin Level 3.6 g/dl (3.5-5.0); Chloride 105 mmol/L (98-107); Potassium 3.9 mmoL/L (3.5-5.1); Sodium 138 mmol/L (136-145)
[2025-02-26 20:45] LABS: Alanine Aminotransferase 17 U/L (12-78); Albumin/Globulin Ratio 1.4 (1.1-1.8); Alkaline Phosphatase 57 U/L (38-126); Anion Gap 6.9 mEq/L (5-15); Aspartate Amino Transferase 27 U/L (14-36); Bilirubin,Total 0.3 mg/dl (0.2-1.3); Blood Urea Nitrogen 14 mg/dl (7-17); Carbon Dioxide 30 mmol/L (22.0-30.0); Creatine Kinase 166 U/L (30-135); Creatinine Clearance Estimated 130 mL/min (50-200); Creatinine,Serum 0.90 mg/dl (0.52-1.04); Estimated Glomerular Filt Rate 73 ml/min (>60); GFR (African American) 88 ML/MIN (>60); Globulin 2.6 g/dL (1.3-3.2); Total Protein,Serum 6.2 g/dl (6.3-8.2)
[2025-02-26 20:46] LABS: Calcium 8.5 mg/dl (8.4-10.2); Glucose 84 mg/dl (74-100)
[2025-02-26 21:00] VITALS: BP 128/90; PULSE 72; RESP 19; O2SAT 100
[2025-02-26 21:29] LABS: Bilirubin,Urine Negative (Negative); Color,Urine YELLOW (Yellow); Glucose,Urine (UA) Negative (Negative); Ketones,Urine Negative (Negative); Leukocyte Esterase,Urine Negative (Negative); PH,Urine 6.0 (5.0-8.5); Protein,Urine Negative (Negative); Specific Gravity, Urine 1.025 (1.005-1.030); Urobilinogen,Urine 1.0 EU/dl (0.2)
[2025-02-26 21:30] VITALS: BP 100/64; PULSE 67; RESP 21; O2SAT 98
[2025-02-26 21:47] LABS: Microscopic, Urine URINE MICROSCOPIC (MICROSCOPIC)
[2025-02-26 22:00] LABS: Urine Pregnancy, HCG Qual. Negative (Negative)
[2025-02-26 22:04] VITALS: BP 100/60; PULSE 68; RESP 18; TEMP 36.8; O2SAT 98
== END 2025-02-26 22:07 | disposition home or self-care (01) ==
PROVIDERS: Nurse Practitioner Acute Care; Emergency Provider Student in an Organized Health Care Education/Training Program; PCP Family Medicine
DX: G40.909 Epilepsy, unspecified, not intractable, without status epilepticus (principal)
CPT/HCPCS: 80053; 81001; 81025; 82550; 83605; 85025; 93005; 99285

== ENCOUNTER 2025-05-20 12:33 | Day surgery (SDC) | payer OTHER, SELFPAY ==
[2025-05-20 12:45] VITALS: BP 130/58; PULSE 75; RESP 16; O2SAT 96; BMI 40.7
[2025-05-20 13:36] VITALS: BP 110/76; PULSE 81; RESP 16; O2SAT 98
[2025-05-20] MEDS: LIDOCAINE 1% 5ML PF VIAL 5 ML (13:39)
[2025-05-20] MEDS: BUPIVACAINE 0.25% 10ML INJ 25 MG IJ (13:39)
[2025-05-20] MEDS: DEXAMETHASONE 10MG/ML 1ML VIAL 10 MG (13:40)
[2025-05-20 13:41] VITALS: BP 121/77; PULSE 73; RESP 18; O2SAT 99
[2025-05-20 13:43] VITALS: BP 121/77; PULSE 73; RESP 18; O2SAT 99
--- NOTE | 2025-05-20 13:47 | EXP.HP ---
History of Present Illness *Admission Date: 05/20/25 *Reason for visit:: TMJ dysfunction *History of present illness: This patient has TMJ dysfunction she presents for bilateral temporomandibular joint injections. [facility] Disclaimer: The information contained in this section may have been updated after the patient was seen, as this information can be updated by other users. Medical History Sleep apnea Enlarged tonsils Ear pain, referred TMJ (dislocation of temporomandibular joint) Pressure sensation in left ear Eustachian tube dysfunction Tinnitus Atypical migraine Bipolar 1 disorder, mixed per pt report of dx Situational anxiety Post traumatic stress disorder (PTSD) SONIA (generalized anxiety disorder) continue Venlafaxine 150mg, add propranolol 10mg PRN Insomnia disorder Major depressive disorder, recurrent, moderate Auditory hallucinations Surgical History No pertinent past surgical history Family History Family/Other No significant family history Social History Smoking Status: Unknown if ever smoked alcohol intake: never current occupational status: employed Travel in the last 8 weeks?: None Have you lived/traveled outside [place] in past 30 days?: No Contact w/someone who lives/traveled outside [place] past 30 days?: No Exposure to someone with infectious disease in past 14 days?: No Do you have a fever (greater than 100.4 F or 38 C)?: No Have you tested positive for COVID-19?: No Exposed to someone with COVID-19 in past 14 days?: No Do you have a sore throat?: No Do you have a cough?: No Do you have any weakness?: No Do you have any diarrhea?: No Are you experiencing any unusual bleeding?: No Do you have any muscle aches/pain?: No Do you have any abdominal pain?: No Are you experiencing loss of taste or smell?: No Other Medical History Have you received the Flu Vaccine for this season: No Have you received the Pneumonia Vaccine: No Review of Systems Review of Systems Review of systems:: pertinent systems reviewed and negative unless documented below Meds Home Medications and Allergies Home Medications ?Medication ?Instructions ?Recorded ?Confirmed ?Type ondansetron 4 mg disintegrating 4 mg PO Q6H PRN nausea and 10/28/24 05/20/25 Rx tablet vomiting #12 tabs azelastine 137 mcg (0.1 %) nasal 2 spray intranasal BID #30 mL 02/17/25 05/20/25 Rx spray meloxicam 15 mg tablet 15 mg PO DAILY PRN pain, mild #7 02/26/25 05/20/25 Rx tabs levocetirizine 5 mg tablet 5 mg PO DAILY #30 tabs 03/25/25 05/20/25 Rx cariprazine 3 mg capsule 3 mg PO DAILY #30 caps 04/07/25 05/20/25 Rx lamotrigine 100 mg tablet 100 mg PO BID #60 tabs 04/07/25 05/20/25 Rx venlafaxine 150 mg 150 mg PO DAILY #30 caps 04/07/25 05/20/25 Rx capsule,extended release 24 hr amitriptyline 50 mg tablet 50 mg PO DAILY PRN sleep #30 tabs 04/28/25 05/20/25 Rx propranolol 10 mg tablet 10 mg PO ONCE PRN panic attacks 30 04/28/25 05/20/25 Rx days #30 tabs baclofen 10 mg tablet 10 mg PO TID PRN neck pain 05/19/25 05/20/25 History cyanocobalamin (vitamin B-12) 1,000 mcg sublingual DAILY 05/19/25 05/20/25 History 1,000 mcg sublingual tablet cyclobenzaprine 10 mg tablet 10 mg PO QPM 05/19/25 05/20/25 History ergocalciferol (vitamin D2) 1,250 1,250 mcg PO WEEKLY 05/19/25 05/20/25 History mcg (50,000 unit) capsule rizatriptan 10 mg disintegrating 10 mg PO . PRN . 05/19/25 05/20/25 History tablet New Prescriptions to Start Prescriptions: Allergies Allergy/AdvReac Type Severity Reaction Status Date / Time No Known Allergies Allergy Verified 05/19/25 13:25 Exam Data for Last 24 hours Vital signs and Labs for Last 24 Hours: Pulse Resp BP Pulse Ox O2 Del Method 73 18 121/77 99 Room Air 05/20/25 13:41 05/20/25 13:41 05/20/25 13:41 05/20/25 13:41 05/20/25 13:41 I & O for Last 24 hours: Intake & Output 05/18/25 05/19/25 05/20/25 05/21/25 11:59 11:59 11:59 11:59 Weight 230 lb *Routine HEENT Exam Head: Present normocephalic Eye: Present EOMI ENT: Present mucous membranes moist *Routine Respiratory Exam Respiratory: Present CTA bilaterally *Routine Cardiovascular Exam Cardiovascular: Present RRR, Normal S1 and Normal S2 *Routine Abdominal Exam Abdominal: Present soft *Routine Rectal Exam Rectal:: deferred *Routine Genitalia Exam Genitalia:: deferred Assessment and Plan *Assessment and plan (1) TMJ (dislocation of temporomandibular joint): Status: Acute Qualifiers: Encounter type: initial encounter Qualified Code(s): S03.00XA - Dislocation of jaw, unspecified side, initial encounter Category: Medical Code(s): S03.00XA - Dislocation of jaw, unspecified side, initial encounter Plan Bilateral temporomandibular joint injections
--- NOTE | 2025-05-20 13:48 | P.PCN_ITS ---
Procedure Date: 05/20/25 Time: 13:48 Anesthesiologist:: Chandana Cole MD Complications:: None Pre-procedure Diagnosis:: Temporomandibular joint dysfunction Post-procedure Diagnosis:: Same Indications for Procedure:: This patient is a pleasant 30-year-old white female who has bilateral temporom andibular joint dysfunction. She presents for bilateral temporomandibular joint injections today. Procedure Details:: Informed consent was obtained risk and benefits of the procedure were explained to the patient. The patient was taken the procedure room placed supine on the procedure table. The area in front of the tragus was prepped using an alcohol prep first on the left side and on the right side. We then inserted a 25-gauge needle first on the left side and on the right side to inject 3 mL lidocaine 1% and dexamethasone 10 mg into the temporomandibular joint. We did this for both sides. Patient tolerated the procedure well with no complications. Plan and Disposition:: Will follow-up with this patient in 2 weeks. Will evaluate efficacy of this injection.
== END 2025-05-20 13:36 | disposition home or self-care (01) ==
LOC: SC.PAINP 12:33
PROVIDERS: PCP Family Medicine; Visit Provider Anesthesiology
DX: M26.603 Bilateral temporomandibular joint disorder, unspecified (principal); G43.909 Migraine, unspecified, not intractable, without status migrainosus; F41.1 Generalized anxiety disorder; F33.1 Major depressive disorder, recurrent, moderate; F43.10 Post-traumatic stress disorder, unspecified; G47.30 Sleep apnea, unspecified; Z79.899 Other long term (current) drug therapy
CPT/HCPCS: 20605; J0665; J1100; J2003